=== PATIENT | male | born 1965 | race Caucasian/White ===

== ENCOUNTER → 2017-11-25 15:55 | Outpatient (CLI) | payer BC, SELFPAY ==
[2017-11-25 18:10] LABS: Anion Gap 8 (5-15); BUN 16 mg/dL (7-18); BUN/Creat Ratio 18.5 RATIO (10-20); Calcium,Total 8.6 mg/dL (8.5-10.1); Chloride 103 mmol/L (98-107); Creatinine, Serum 0.86 mg/dL (0.70-1.30); EST Glomerular Filtration Rate 98 mL/min (>60); Est Glom Filt Rate - Afr Amer 118 mL/min (>60); Glucose 103 mg/dL (70-110); Sodium Level 139 mmol/L (136-145)
== END ==
PROVIDERS: Family Provider Internal Medicine; PCP Internal Medicine; Visit Provider Family Medicine
DX: I10 Essential (primary) hypertension (principal)
CPT/HCPCS: 36415; 80048

== ENCOUNTER 2018-02-10 06:26 | Day surgery (SDC) | payer BC, SELFPAY ==
--- NOTE | 2018-02-10 | COLBX_PTH ---
PATIENT: AUGUSTUS LIND LOC: EN U#:[id number] AGE/SX: 53/M ROOM: RE02/10/[address]: Dr. Ryan Alarcon MD : 1965 BED: DIS: 02/10/2018 SPEC #: [id number] RECD: 02/10/18 10:09 STATUS: JENNIFER ALEX #: [id number] ESCOBAR: 02/10/18 00:[address]: Ryan Alarcon DEPT: SURGICAL PATHOLOGY RECD BY: Sim Lamar ENTERED: 02/10/18 10:45 SP TYPE: COLON BX OTHR DR: Dr. Ortega Galloway MD Tissues: Rectum, NOS Procedures: Surgery Specimen Level IV HEADER OPERATION: Colonoscopy PRE-OP DIAGNOSIS: Screening TISSUE SUBMITTED: Rectal polyp MICROSCOPIC DIAGNOSIS Rectal polyp, biopsy: Fragments of tubular adenoma. SJ:yu 02/11/18 MICROSCOPIC DESCRIPTION Slides are reviewed. GROSS DESCRIPTION Received in fixative is one container labeled with the patient's name and designated rectal polyp. The specimen consists of two irregular fragments of light alejandre soft tissue that in aggregate measure 0.6 x 0.3 x 0.2 cm. The specimen is totally submitted in one cassette. / AM:yu 02/10/18 TC:1 CPT: 62136
[2018-02-10 06:50] VITALS: BP 124/81; PULSE 58; RESP 18; TEMP 36.6; O2SAT 98; BMI 21.2
--- NOTE | 2018-02-10 08:08 | PCM.HP.STD ---
Problem List (1) Colon cancer screening Status: Acute History of Present Illness Date of Admission: 02/10/18 The patient is a 53 year old M who presents for screening colonoscopy. Past Medical History Allergies No Known Allergies Allergy (Verified 02/03/18 15:34) Home Medications: Ambulatory Orders Medication Instructions Recorded Aspirin E.C. [Ecotrin] 81 mg PO DAILY@0800 02/03/18 Hydrochlorothiazide [Hctz] 25 mg PO DAILY 02/03/18 Lisinopril [Zestril] 10 mg PO DAILY 02/03/18 Smoking Status: Former smoker - *Family History Maternal History Items: No pertinent history VTE Information - Inpt Only VTE Present on Admission: No VTE Mechan Device Prophylaxis: None VTE Pharm Prophylaxis ordered?: No Reason prophylaxis not ordered:: Treatment Not Indicated Patient Problems: Active and Suspected Problems Colon cancer screening (Acute) - Physical Exam Lungs: Clear to auscultation Cardiovascular: Regular rate, Regular Rhythm, No murmurs Abdomen: Bowel Sounds Present, Soft, Non Tender, Non-Distended Vital Signs Temp Pulse Resp BP Pulse Ox 97.9 F 58 L 18 124/81 H 98 02/10/18 06:50 02/10/18 06:50 02/10/18 06:50 02/10/18 06:50 02/10/18 06:50 Oxygen Delivery Method Room Air Weight: 147 lb 14.883 oz Body Mass Index (BMI) 21.2 Assessment/Plan Active and Suspected Problems Colon cancer screening (Acute) My plan is to perform a colonoscopy on him. Risk benefits are reviewed and he agrees to proceed.
--- NOTE | 2018-02-10 08:09 | PCM.OPRPT ---
Problem List (1) Colon cancer screening Status: Acute Report of Operation Date of Procedure: 02/10/18 Pre-Operative Diagnosis: z12.11 screening colonoscopy Post-Operative Diagnosis: Same Surgery/Procedure Performed:: 62522 colonoscopy with snare polypectomy of polyp in the rectum Type of Anesthesia:: MAC Anesthesiologist: Sacha Schulz Description of Procedure: Patient was brought in the operating room placed in supine position under excellent MAC anesthetic was placed in the left lateral decubitus position the scope was inserted into the rectum. Scope was directed through the sigmoid colon, descending colon, transverse colon, ascending colon, to the cecum. Operative findings: 1. Cecum: Normal appearance no mass lesions normal ileocecal valve. 2. Ascending colon: Normal appearance no mass lesions. 3. Transverse colon: Normal appearance no mass lesions 4. Descending colon: Normal appearance no mass lesions 5. Sigmoid colon: Normal appearance no mass lesion diffuse scattered diverticuli were identified. 6. Rectum: Small polyp was identified with a small stock I placed a snare around this and remove the polyp without difficulty and brought back to the channel the scope. Had excellent hemostasis. The scope was withdrawn. Digital rectal exam was performed showing a smooth prostate. The patient will need another colonoscopy in 3 years. - Admit VTE Documentation VTE Present on Admission: No VTE Mechan Device Prophylaxis: None VTE Pharm Prophylaxis ordered?: No Reason prophylaxis not ordered:: Treatment Not Indicated
[2018-02-10 08:10] VITALS: BP 113/75; BP 124/81; PULSE 62; RESP 16; TEMP 36.3; O2SAT 96
[2018-02-10 08:15] VITALS: BP 112/73; BP 124/81; PULSE 53; RESP 16; O2SAT 95
[2018-02-10 08:20] VITALS: BP 119/74; BP 124/81; PULSE 51; RESP 18; O2SAT 96
[2018-02-10 08:25] VITALS: BP 124/81; BP 126/83; PULSE 53; RESP 18; TEMP 36.4; O2SAT 97
[2018-02-10 08:41] VITALS: BP 124/81
== END 2018-02-10 08:40 | disposition home or self-care (01) ==
LOC: EN 06:26
PROVIDERS: Family Provider Family Medicine; PCP Family Medicine; Visit Provider Surgery
PROC: 0DJD8ZZ Inspection of Lower Intestinal Tract, Via Natural or Artificial Opening Endoscopic (ICD-10-PCS; CPT 45378; principal; 2018-02-10 07:55)
DX: Z12.11 Encounter for screening for malignant neoplasm of colon (principal); D12.8 Benign neoplasm of rectum; I10 Essential (primary) hypertension; Z79.82 Long term (current) use of aspirin; Z79.899 Other long term (current) drug therapy; Z87.891 Personal history of nicotine dependence
CPT/HCPCS: 45380; 88305; J7120; J1610

== ENCOUNTER → 2018-02-17 15:57 | Outpatient (CLI) | payer BC, SELFPAY ==
[2018-02-17 19:08] LABS: Anion Gap 7 (5-15); BUN 25 mg/dL (7-18); BUN/Creat Ratio 23.1 RATIO (10-20); Calcium,Total 8.9 mg/dL (8.5-10.1); Chloride 103 mmol/L (98-107); Creatinine, Serum 1.08 mg/dL (0.70-1.30); EST Glomerular Filtration Rate 75 mL/min (>60); Est Glom Filt Rate - Afr Amer 91 mL/min (>60); Glucose 83 mg/dL (74-106); Potassium 3.6 mmol/L (3.5-5.1); Sodium Level 138 mmol/L (136-145)
== END ==
PROVIDERS: Family Provider Family Medicine; PCP Family Medicine; Visit Provider Family Medicine
DX: I10 Essential (primary) hypertension (principal)
CPT/HCPCS: 36415; 80048

== ENCOUNTER → 2018-04-08 14:34 | Outpatient (CLI) | payer BC, SELFPAY ==
[2018-04-08 15:43] LABS: Absolute Lymphocyte Count 1.45 X10^3/ul (0.83-4.51); Absolute Neutrophil Count 7.8 X10^3/uL (2.0-7.7); Basophil# 0.01 X10^3/uL; Basophil% 0.1 % (0-1); Eosinophil# 0.02 X10^3/uL; Eosinophils% 0.2 % (0-5); Hematocrit 42.1 % (40-54); Hemoglobin 13.7 g/dl (13.0-16.5); Lymphocyte # 1.45 X10^3/ul (4.0); Lymphocyte % 14.5 % (19-41); Mean Corp Hgb Conc 32.5 g/gl (32-36); Mean Corpuscular Hgb 31.1 pg (27.0-32.0); Mean Corpuscular Volume 95.7 fL (80-94); Mean Platelet Vol. 9.5 fl (6.2-12.0); Monocyte# 0.71 X10^3/uL; Monocyte% 7.1 % (0-10); Neutrophil # 7.77 X10^3/uL (2.7-7.7); Neutrophil % 77.8 % (47-70); Platelet Count 266 K/mm3 (150-450); RBC Distribution Width SD 48.8 fl (35.1-43.9)
[2018-04-08 15:52] LABS: POSITIVE COUNT NO; POSITIVE DIFFERENTIAL NO; POSITIVE MORPHOLOGY NO
[2018-04-08 16:00] LABS: ALB/GLOB Ratio 1.1 RATIO (0.9-2.4); AST(SGOT) 22 U/L (15-37); Alanine Aminotransfer ALT/SGPT 39 U/L (16-61); Albumin, Serum 3.5 g/dL (3.2-5.0); Alkaline Phosphatase 74 U/L (45-117); Anion Gap 2 (5-15); BUN 16 mg/dL (7-18); BUN/Creat Ratio 15.5 RATIO (10-20); Calcium,Total 8.6 mg/dL (8.5-10.1); Chloride 103 mmol/L (98-107); Creatinine, Serum 1.03 mg/dL (0.70-1.30); EST Glomerular Filtration Rate 80 mL/min (>60); Est Glom Filt Rate - Afr Amer 96 mL/min (>60); Globulin 3.1 g/dL (2.2-4.2); Glucose 96 mg/dL (74-106); Potassium 3.5 mmol/L (3.5-5.1); Protein, Total 6.6 g/dL (6.4-8.2); Sodium Level 138 mmol/L (136-145)
== END ==
PROVIDERS: Family Provider Family Medicine; PCP Family Medicine; Visit Provider Nurse Practitioner Adult Health
DX: R10.9 Unspecified abdominal pain (principal)
CPT/HCPCS: 36415; 80053; 85025

== ENCOUNTER → 2018-04-24 15:39 | Outpatient (CLI) | payer BC, SELFPAY ==
--- NOTE | 2018-04-24 15:47 | CT_ITS ---
STUDY: CT ABDOMEN AND PELVIS WITH CONTRAST REASON FOR EXAM: Male, 53 years old. Lower abdominal pain for a few weeks. RADIATION DOSAGE (If Supplied By Facility): CTDIvol = ( 18.12 ) mGy, DLP = ( 632.01 ) mGycm TECHNIQUE: Transaxial images were obtained from the dome of the diaphragm to the symphysis pubis with oral contrast. 100mL ml of Isovue 300 contrast was administered. Sagittal and coronal images were reconstructed. Individualized dose optimization techniques were used for this CT. COMPARISON: Axial images CT abdomen and pelvis March 26, 2008. Report for that study not available for review at the time of this dictation. FINDINGS: The visualized lung bases are unremarkable. The visualized portions of the heart are within normal limits. Normal liver. The patent portal vein diameter is 15 mm. The gallbladder is contracted. The diameter of the common bile duct reaches 8.5 mm. There is normal tapering as it passes through the pancreatic head. There is a 1.15 cm accessory spleen interposed between the splenic hilum and tail the pancreas Normal spleen. Normal pancreas. Normal bilateral adrenal glands. Normal right kidney. Normal left kidney. No hydronephrosis. Normal visualized stomach. Normal small intestine. Normal colon. The appendix is visualized and appears normal. There is mild atherosclerotic calcification of the abdominal aorta and proximal iliac arteries, without a demonstrated aneurysm. Normal inferior vena cava. Normal retroperitoneum. Normal urinary bladder. Prostate gland is 5.1 x 3.8 x 3.9 cm (R39 cc). Normal abdominal wall. There are multilevel mild to moderate degenerative changes of the visualized spine, as well as degenerative changes of the bilateral sacroiliac joints. A 1 cm sclerotic density is now seen in the lateral right femoral head at the site of a prior site of cystic change. CT/Abdomen/Pelvis WITH Contrast IMPRESSION: 1. No demonstrated finding clearly appearing as a cause of the patient's complaint. 2. Mildly enlarged prostate gland, slightly increased in size from 2007. 3. No hydronephrosis. 4. The bowel is unremarkable without signs of obstruction. The appendix is normal. Electronically Signed: Michael Norton MD at 19:39 EDT , Service support ,
== END ==
PROVIDERS: Family Provider Family Medicine; PCP Family Medicine; Visit Provider Family Medicine
DX: R19.00 Intra-abdominal and pelvic swelling, mass and lump, unspecified site (principal)
CPT/HCPCS: 74177; Q9967

== ENCOUNTER → 2018-06-05 08:10 | Outpatient (CLI) | payer BC, SELFPAY ==
[2018-06-05 10:29] LABS: Anion Gap 10 (5-15); BUN 11 mg/dL (7-18); BUN/Creat Ratio 12.1 RATIO (10-20); Calcium,Total 8.6 mg/dL (8.5-10.1); Chloride 108 mmol/L (98-107); Cholesterol 172 mg/dL (200); Creatinine, Serum 0.91 mg/dL (0.70-1.30); EST Glomerular Filtration Rate 92 mL/min (>60); Est Glom Filt Rate - Afr Amer 111 mL/min (>60); Glucose 92 mg/dL (74-106); High Density Lipoprotein 86 mg/dL; Sodium Level 145 mmol/L (136-145); Triglycerides 49 mg/dL; Very Low Density Lipoprotein 10 mg/dL (5-40)
== END ==
PROVIDERS: Family Provider Family Medicine; PCP Family Medicine; Visit Provider Family Medicine
DX: I10 Essential (primary) hypertension (principal)
CPT/HCPCS: 36415; 80048; 80061

== ENCOUNTER 2018-06-25 21:55 | Emergency (ER) | payer BC, SELFPAY ==
[2018-06-25 21:55] VITALS: BP 158/102; PULSE 85; RESP 16; TEMP 36.4; O2SAT 97; BMI 22.1
[2018-06-25 22:28] LABS: Absolute Lymphocyte Count 1.31 X10^3/ul (0.83-4.51); Absolute Neutrophil Count 7.3 X10^3/uL (2.0-7.7); Basophil# 0.02 X10^3/uL; Basophil% 0.2 % (0-1); Eosinophil# 0.01 X10^3/uL; Eosinophils% 0.1 % (0-5); Hematocrit 43.3 % (40-54); Hemoglobin 14.5 g/dl (13.0-16.5); Lymphocyte # 1.31 X10^3/ul (4.0); Lymphocyte % 13.9 % (19-41); Mean Corp Hgb Conc 33.5 g/gl (32-36); Mean Corpuscular Hgb 32.4 pg (27.0-32.0); Mean Corpuscular Volume 96.7 fL (80-94); Mean Platelet Vol. 9.5 fl (6.2-12.0); Monocyte% 7.4 % (0-10); Neutrophil # 7.34 X10^3/uL (2.7-7.7); Neutrophil % 78.1 % (47-70); POSITIVE COUNT NO; POSITIVE DIFFERENTIAL NO; POSITIVE MORPHOLOGY NO; Platelet Count 206 K/mm3 (150-450); RBC Distribution Width CV 13.6 % (11.6-14.6); RBC Distribution Width SD 47.5 fl (35.1-43.9); Red Blood Count 4.48 M/mm3 (4.6-6.2); White Blood Count 9.4 K/mm3 (4.4-11.0)
[2018-06-25] MEDS: 0.9% Normal Saline 1,000 ML 150 ML IV (22:47)
[2018-06-25] MEDS: Aspirin 81 MG TAB.CHEW 324 MG PO (22:47)
[2018-06-25 22:49] LABS: Anion Gap 9 (5-15); BUN 18 mg/dL (7-18); BUN/Creat Ratio 18.7 RATIO (10-20); Calcium,Total 8.8 mg/dL (8.5-10.1); Chloride 108 mmol/L (98-107); Creatinine, Serum 0.96 mg/dL (0.70-1.30); EST Glomerular Filtration Rate 86 mL/min (>60); Est Glom Filt Rate - Afr Amer 104 mL/min (>60); Estimated Creatinine Clearance 86.21 ml/min; Glucose 120 mg/dL (74-106); Potassium 3.7 mmol/L (3.5-5.1); Sodium Level 146 mmol/L (136-145); Thyroid Stim Hormone (TSH) 1.15 uIU/mL (0.358-3.74)
--- NOTE | 2018-06-25 23:14 | ED.DCSUM_ITS ---
- ER Visit Summary Date of Service: 06/25/18 Chief Complaint: Palpitations History of Present Illness: The patient is a [address] Ortega Rodriguez. He reports he has palpitations began approximate 6:00 this evening. He describes as an irregular heartbeat with mild shortness of breath. No chest pain, pressure, or tightness. No associated nausea or diaphoresis. Patient reports that his blood pressure has been elevated. His engineer booster and exhauster had him stop his hydrochlorothiazide recently. He has lisinopril increased from 10-20 mg and his blood pressure remains elevated. Physical Examination: Vitals: Stable. Afebrile. General: Well-nourished and well-developed. Head: Normocephalic atraumatic. Neck: Supple, no lymphadenopathy. No JVD. Nontender. Cardiovascular: Regular rate and rhythm. No murmurs. Respiratory: No respiratory distress. Clear to auscultation bilaterally. Abdominal: Soft, nontender, nondistended, normal bowel sounds. No guarding, rebound, or peritoneal signs. Back: Nontender. Extremities: Nontender, no edema. Skin: Normal color, no rash. Neurologic: Alert and oriented ?3. Cranial nerves II through XII are intact. Normal strength and sensation. Psych: Normal affect. Test Results: EKG is sinus at [address] changes. Troponins negative. CBC is remarkable for segment neutrophils 78 lymphocytes 14. Chem-7 is marked for sodium 146, chloride 108, glucose 120. TSH is 1.15. Chest x-ray is normal. Emergency Department Course and Treatment: Patient's blood pressure has remained elevated while here. He would like to be placed back on a diuretic. Reports that his engineer booster and exhauster took him off hydrochlorothiazide due to the photosensitivity associated with this. Had a prolonged discussion with patient and his , who is an RN, about choices. And they have opted for Lasix. He is given 20 mg p.o. here. Treatment Plan: Patient is asking for a referral to Dr. Aguilar. He will be placed on 10 mg of Lasix once a day. Instructed follow-up Dr. Aguilar the next 1- 2 weeks. Follow-up with Dr. Ortega Rodriguez within a week to get his blood pressure checked again. Return to the emergency department for any worsening symptoms. Disposition: To home in improved and stable condition. Impression: 1. Palpitations. 2. Hypertension. This note was generated with [employer]addle dictation software. It may contain incorrect words, spelling, and punctuation that were not noted in review of the chart prior to signing ED Disposition - Plan for ED Patient: Disposition: Home or Assisted Living Chief Complaint: Palpitations Instructions: ED Hypertension Conf Out Of Control, ED Palpitations Prescriptions: Furosemide [Lasix] 10 mg PO DAILY #30 tablet Referrals: Cleveland Aguilar MD [STAFF PHYSICIAN] - Ortega Galloway MD [Primary Care Provider] - 3-5 Days if not improving
[2018-06-25 23:25] VITALS: BP 169/106; PULSE 67; PULSE 72; RESP 14; O2SAT 96; O2SAT 98
[2018-06-25] MEDS: Furosemide 20 MG Tablet PO (23:26)
== END 2018-06-25 23:28 | disposition home or self-care (01) ==
LOC: ED 22:23
PROVIDERS: Emergency Provider Emergency Medicine; Family Provider Family Medicine; PCP Family Medicine
DX: R00.2 Palpitations (principal); I10 Essential (primary) hypertension; R06.00 Dyspnea, unspecified; Z79.82 Long term (current) use of aspirin; Z79.899 Other long term (current) drug therapy
CPT/HCPCS: 71045; 80048; 84443; 84484; 85025; 93005; 96360; 99285; J7030; A4216

== ENCOUNTER → 2018-07-18 15:55 | Outpatient (CLI) | payer BC, SELFPAY ==
--- NOTE | 2018-07-18 16:01 | ECHOD_ITS ---
Reason For Study: HTN Procedure This was a 2D Doppler, Color Flow transthoracic echocardiogram. Exam performed in department. Left Ventricle Normal LV size. Apical false tendon noted. The estimated ejection fraction is 45 %. No evidence for diastolic dysfunction. No regional wall motion abnormalities noted. Right Ventricle Normal RV size. Normal systolic function. Atria Normal left atrium. Normal right atrium. Mitral Valve Normal mitral valve. Trivial eccentric mitral valve insufficiency. Tricuspid Valve Normal tricuspid valve. Mild (1+) tricuspid valve insufficiency. Aortic Valve Normal aortic valve. Trisinus/trileaflet aortic valve. Mild (1+) eccentric aortic valve insufficiency. Pulmonic Valve Normal pulmonic valve. Great Vessels Normal aortic root. The pulmonary artery is normal size. Normal inferior vena cava. Pericardium/Pleural No pericardial effusion. MMode/2D Measurements & Calculations LVIDd: 5.0 cm IVSd: 0.92 cm Ao root diam: 3.8 cm RVDd: 2.7 cm LVPWd: 0.91 cm LA dimension: 2.9 cm LAV(MOD-bp): 48.1 ml EDV(MOD-sp4): 110.8 ml EDV(MOD-sp2): 107.3 ml LAV(MOD-bp) Indexed: 25.7 ml/m2 ESV(MOD-sp4): 47.1 ml EF(MOD-sp2): 55.2 % LAV(MOD-sp2): 62.5 ml EF(MOD-sp4): 57.5 % LAV(MOD-sp4): 35.2 ml SV(MOD-sp4): 63.7 ml SV(MOD-sp2): 59.2 ml LA A4 area: 14.9 cm2 RA A4 area: 13.9 cm2 Time Measurements MV dec time: 0.31 sec Doppler Measurements & Calculations MV E max aleks: 42.7 cm/sec Lat Peak E' Aleks: 9.6 cm/sec Med Peak E' Aleks: 6.5 cm/sec MV A max aleks: 34.8 cm/sec E/E' lat: 4.4 E/E' med: 6.6 MV E/A: 1.2 Ao V2 max: 103.5 cm/sec AI max aleks: 433.6 cm/sec LV V1 max: 93.6 cm/sec Ao max P.3 mmHg AI max P.2 mmHg LV V1 max P.5 mmHg AI dec slope: 193.2 cm/sec2 AI P1/2t: 657.4 msec PA V2 max: 72.6 cm/sec TR max aleks: 222.0 cm/sec TR max P.7 mmHg Interpretation Summary Normal LV size. The estimated ejection fraction is 45 %. No evidence for diastolic dysfunction. No regional wall motion abnormalities noted. Mild (1+) eccentric aortic valve insufficiency. Compared to previous study, the left ventricular systolic function has worsened.. Ordering Physician: Cleveland Aguilar Referring Physician: Cleveland Aguilar Performed By: Monae Vargas, KRISTIE, RVT
== END ==
PROVIDERS: Family Provider Family Medicine; PCP Family Medicine; Visit Provider Internal Medicine Cardiovascular Disease
DX: I10 Essential (primary) hypertension (principal)
CPT/HCPCS: 93306

== ENCOUNTER → 2018-12-10 08:15 | Outpatient (CLI) | payer BC, SELFPAY ==
[2018-12-10 10:37] LABS: Anion Gap 9 (5-15); BUN 17 mg/dL (7-18); BUN/Creat Ratio 17.5 RATIO (10-20); Calcium,Total 9.1 mg/dL (8.5-10.1); Chloride 104 mmol/L (98-107); Cholesterol 195 mg/dL (200); Creatinine, Serum 0.97 mg/dL (0.70-1.30); EST Glomerular Filtration Rate 85 mL/min (>60); Est Glom Filt Rate - Afr Amer 103 mL/min (>60); Glucose 100 mg/dL (74-106); High Density Lipoprotein 91 mg/dL; PSA,Total - Annual Screen 1.29 ng/mL (0.00-4.00); Potassium 3.8 mmol/L (3.5-5.1); Sodium Level 146 mmol/L (136-145); Triglycerides 55 mg/dL; Very Low Density Lipoprotein 11 mg/dL (5-40)
== END ==
PROVIDERS: Family Provider Family Medicine; PCP Family Medicine; Visit Provider Family Medicine
DX: I10 Essential (primary) hypertension (principal); N40.0 Benign prostatic hyperplasia without lower urinary tract symptoms
CPT/HCPCS: 36415; 80048; 80061; 84153; G0103

== ENCOUNTER → 2019-03-26 15:36 | Outpatient (CLI) | payer BC, SELFPAY ==
--- NOTE | 2019-03-26 15:39 | RAD_ITS ---
STUDY: X-RAY - ABDOMEN/PELVIS REASON FOR EXAM: Male, 54 years old. Abdominal pain for one year. TECHNIQUE: 4 COMPARISON: None. FINDINGS: Normal visualized lung bases. There is a nonspecific bowel gas pattern. There is seen within the mildly distended stomach. Throughout nondistended colon and dilated central small bowel loops. There is no demonstrated free abdominal air. The visualized liver, spleen and kidneys are grossly normal in size and morphology. Normal soft tissue structures. Normal visualized osseous structures. RAD/Abd Inc Decub and/or Erect IMPRESSION: Diffuse gaseous distention of bowel suggesting ileus. Electronically Signed: Steven Zaidi DO at 19:04 EDT Tel [phone], Service support ,
== END ==
PROVIDERS: Family Provider Family Medicine; PCP Family Medicine; Referring Provider Family Medicine; Visit Provider Family Medicine
DX: R10.9 Unspecified abdominal pain (principal)
CPT/HCPCS: 74019

== ENCOUNTER → 2019-04-01 15:37 | Outpatient (CLI) | payer BC, SELFPAY ==
[2019-03-27 13:18] VITALS: BMI 23.3
--- NOTE | 2019-04-01 15:38 | CT_ITS ---
HISTORY: RECENT ILEUS , BLOATING AND PAIN TECHNIQUE: Helically acquired images were obtained of the abdomen and pelvis following the intravenous administration of 100 ml of Isovue 300 Iodinated contrast. 2D reformats. Oral contrast was administered. A radiation dose optimization technique was used for this scan. COMPARISON: X-rays of the abdomen from March 26, 2019, and CT scan of the abdomen and pelvis from April 24, 2018. FINDINGS: # of images incl. paperwork: 381 LUNG BASES: Clear. CT abdomen: Bones are unremarkable. The gallbladder is contracted. Liver, spleen, pancreas, and adrenal glands, are normal. A tiny nonobstructing nephrolith is present within the inferior pole of the left kidney. A 7 mm hypodense area medially within the midportion of the left kidney is statistically a benign simple cysts.. The aorta is soft and calcific plaque are present within the abdominal aorta without aneurysm or dissection.. CT pelvis: No ascites is present. The the prostate gland is enlarged indenting into the posterior inferior aspect of the urinary bladder.. The appendix is normal. Series 1002, image 61. The bladder is normal. Bowel-gas pattern is normal. CT/Abdomen/Pelvis WITH Contrast IMPRESSION: No acute intra-abdominal or pelvic disease. Individualized dose optimization techniques were used for this CT. at 0258 Reported and signed by: Prudencio Vicente MD Electronically Signed: Prudencio Vicente MD at 2:57 EDT Tel , Service support ,
== END ==
PROVIDERS: Family Provider Family Medicine; PCP Family Medicine; Referring Provider Surgery; Visit Provider Surgery
DX: R10.9 Unspecified abdominal pain (principal); R14.0 Abdominal distension (gaseous)
CPT/HCPCS: 74177; Q9967

== ENCOUNTER → 2019-04-10 07:57 | Outpatient (CLI) | payer BC, SELFPAY ==
[2019-03-27 13:18] VITALS: BMI 23.3
--- NOTE | 2019-04-10 08:00 | US_ITS ---
STUDY: ABDOMINAL ULTRASOUND - RIGHT UPPER QUADRANT REASON FOR VISIT: Male, 54 years old. Elevated LFTs TECHNIQUE: Ultrasound evaluation of the right upper quadrant was performed with real-time and static de luna-scale imaging. TECHNICAL QUALITY: Adequate. COMPARISON: None. FINDINGS: Liver: The liver measures 16.6 cm. There is normal echogenicity of the liver. The bile ducts are within normal limits. There is hepatic color flow. The direction of portal flow is hepatopetal. There is no demonstrated mass lesion. Gallbladder: Normal distended gallbladder. The gallbladder wall measures 1.6 mm. There is a negative sonographic Juan's sign. There is no pericholecystic fluid. There are no gallstones. Common Bile Duct (C.B.D.): The common bile duct measures 7.4 mm. Pancreas: Normal size of the head, body and tail of the pancreas. There is normal echogenicity of the pancreas. There is no demonstrated pancreatic mass or cyst. Right Kidney: Normal size of the right kidney. The right kidney measures 9.9 x 4.9 x 6.0 cm. Normal renal cortex. The right cortex measures 1.6 cm. There is no demonstrated renal mass or cyst. There is no right hydronephrosis. US/Gallbladder IMPRESSION: Normal right upper quadrant ultrasound examination. Electronically Signed: Michael Perez MD at 15:49 EDT , Service support ,
== END ==
PROVIDERS: Family Provider Family Medicine; PCP Family Medicine; Referring Provider Surgery; Visit Provider Surgery
DX: R10.11 Right upper quadrant pain (principal); R14.0 Abdominal distension (gaseous)
CPT/HCPCS: 76705

== ENCOUNTER → 2019-08-05 07:57 | Outpatient (CLI) | payer BC, SELFPAY ==
[2019-04-14 15:22] VITALS: BMI 23.3
--- NOTE | 2019-08-05 07:59 | ECHOD_ITS ---
Reason For Study: hypertension Procedure This was a 2D Doppler, Color Flow transthoracic echocardiogram. The exam was of adequate technical quality. Exam performed in department. Left Ventricle Normal LV size. Apical false tendon noted. Left ventricular systolic function is normal. The estimated ejection fraction is 65 %. Transmitral doppler flow suggestive of impaired relaxation of left ventricle. No regional wall motion abnormalities noted. Right Ventricle Normal RV size. Normal systolic function. Atria Normal left atrium. Normal right atrium. No doppler evidence for ASD. Mitral Valve There is no mitral annular calcification. Normal mitral valve. Trivial mitral valve insufficiency. Tricuspid Valve Normal tricuspid valve. Trivial tricuspid valve insufficiency. Aortic Valve Trisinus/trileaflet aortic valve. Normal aortic valve. Trivial aortic valve insufficiency. Pulmonic Valve The pulmonic valve is not well visualized. Trivial pulmonic valve insufficiency. Great Vessels Mildly dilated aortic root. Pericardium/Pleural No pericardial effusion. MMode/2D Measurements & Calculations LVIDd: 5.4 cm IVSd: 0.92 cm LVOT diam: 2.5 cm LVIDs: 3.7 cm LVPWd: 0.90 cm LVOT area: 5.0 cm2 RVDd: 3.3 cm FS: 32.3 % Ao root diam: 4.2 cm LAV(MOD-bp): 47.5 ml LA A4 area: 18.2 cm2 LAV(MOD-bp) Indexed: 25.3 ml/m2 LAV(MOD-sp2): 43.4 ml LAV(MOD-sp4): 51.8 ml LA dimension(2D): 3.5 cm RA A4 area: 16.8 cm2 Time Measurements MV dec time: 0.18 sec Doppler Measurements & Calculations MV E max aleks: 59.6 cm/sec Lat Peak E' Aleks: 8.4 cm/sec Med Peak E' Aleks: 5.7 cm/sec MV A max aleks: 75.8 cm/sec E/E' lat: 7.1 E/E' med: 10.4 MV E/A: 0.79 Ao V2 max: 106.2 cm/sec AI max aleks: 444.3 cm/sec LV V1 max: 103.3 cm/sec Ao max P.5 mmHg AI max P.0 mmHg LV V1 max P.3 mmHg Ao V2 mean: 68.6 cm/sec AI dec slope: 185.7 cm/sec2 LV V1 mean P.8 mmHg Ao mean P.1 mmHg AI P1/2t: 700.8 msec LV V1 mean: 61.5 cm/sec Ao V2 VTI: 21.0 cm LV V1 VTI: 22.1 cm VLADIMIR(I,D): 5.3 cm2 VLADIMIR(V,D): 4.9 cm2 SV(LVOT): 110.5 ml PA V2 max: 84.1 cm/sec Interpretation Summary Left ventricular systolic function is normal. The estimated ejection fraction is 65 %. Apical false tendon noted. Trivial mitral valve insufficiency. Trivial tricuspid valve insufficiency. Trivial aortic valve insufficiency. Trivial pulmonic valve insufficiency. Mildly dilated aortic root. Transmitral doppler flow suggestive of impaired relaxation of left ventricle Ordering Physician: Aleida Marcelo Referring Physician: Aleida Marcelo Performed By: Ivanna Martin, KRISTIE, RVT
== END ==
PROVIDERS: Family Provider Internal Medicine; PCP Internal Medicine; Referring Provider Internal Medicine; Visit Provider Internal Medicine
DX: I11.9 Hypertensive heart disease without heart failure (principal); I43 Cardiomyopathy in diseases classified elsewhere
CPT/HCPCS: 93306

== ENCOUNTER 2020-04-11 15:23 | Emergency (ER) | payer BC, SELFPAY ==
[2019-04-14 15:22] VITALS: BMI 23.3
[2020-04-11 15:23] VITALS: BP 147/95; PULSE 78; RESP 18; O2SAT 98
[2020-04-11 15:24] VITALS: BP 145/98; PULSE 81; RESP 17; TEMP 36.4; O2SAT 97; BMI 23.2
--- NOTE | 2020-04-11 15:57 | RAD_ITS ---
STUDY: X-RAY - LEFT FOOT CLINICAL: Male, 55 years old. BRUISING TO OUTSIDE OF FOOT, PAIN ON BOTTOM X5 DAYS. NO KNOWN INJURY. TECHNIQUE: 3 view(s) of the foot. COMPARISON: None. FINDINGS: Normal talus, calcaneus, and tarsal bones. Normal visualized subtalar, talonavicular, calcaneocuboid, tarsal and tarsometatarsal articulations. Normal metatarsi. Normal metatarsophalangeal joint of the great toe. Normal tibial and fibular sesamoid bones. Normal interphalangeal joint of the great toe. Normal phalanges of the great toe. Normal second through fifth metatarsophalangeal joints. Normal interphalangeal joints and phalanges of the lesser toes. There is mild soft tissue edema. There is mild fragmentation of the sesamoids of the big toe. There are no acute fractures. RAD/Foot min 3 Views IMPRESSION: Mild soft tissue edema Mild fragmentation of the sesamoids of the big toe likely normal variant or old trauma, correlation with point tenderness recommended No acute fracture Electronically Signed: Lee De Los Santos, at 17:01 EDT Tel , Service support ,
--- NOTE | 2020-04-11 15:59 | CT_ITS ---
STUDY: CTA OF THE ABDOMINAL AORTA AND BILATERAL LOWER EXTREMITIES REASON FOR EXAM: Male, 55 years old. ABD SWELLING, LEG DISCOLORATION-LT LEG BRUISING, LEG COLD, HX-HTN RADIATION DOSAGE (If Supplied By Facility): CTDIvol = ( 7.88 ) mGy, DLP = ( 1038.64 ) mGycm TECHNIQUE: Axial CT angiography multi-detector data acquisition was obtained from the to the following intravenous administration of IV 100mL Isovue-370. Axial images and MIP images were reconstructed from the axial data set. Post-processing of the angiographic images was performed, with multiplanar reformation and 3D reconstruction. Individualized dose optimization techniques were used for this CT. TECHNICAL QUALITY: Good COMPARISON: None. Descriptors of Narrowing: None (0%) Mild (< 50%) Moderate (50-70%) Severe (70-90%) Subtotal/Total Occlusion (90-100%) Non-Evaluable (technically non-diagnostic FINDINGS: Abdominal aorta: No demonstrated narrowing. Celiac and superior mesenteric arteries: No demonstrated narrowing. Inferior mesenteric artery: No demonstrated narrowing. Right renal artery(arteries): No demonstrated narrowing. Left renal artery(arteries): No demonstrated narrowing. Right common iliac artery: No demonstrated narrowing. Right external iliac artery: No demonstrated narrowing. Right internal iliac artery: No demonstrated narrowing. Left common iliac artery: No demonstrated narrowing. Left external iliac artery: No demonstrated narrowing. Left internal iliac artery: No demonstrated narrowing. RIGHT LOWER EXTREMITY Right common femoral artery: No demonstrated narrowing. Right profundus femoris: No demonstrated narrowing. Right superficial femoral: No demonstrated narrowing. Right popliteal artery: No demonstrated narrowing. Right tibioperoneal trunk: No demonstrated narrowing. Right anterior tibial artery: Normal proximal to mid calf, no flow within the distal calf, ankle or foot. Right posterior tibial artery: Normal proximal to mid calf, no flow within the distal calf, ankle Right peroneal artery: Normal proximal to mid calf, no flow within the distal calf, ankle LEFT LOWER EXTREMITY Left common femoral artery: No demonstrated narrowing. Left profundus femoris: No demonstrated narrowing. Left superficial femoral: No demonstrated narrowing. Left popliteal artery: No demonstrated narrowing. Left tibioperoneal trunk: No demonstrated narrowing. Left anterior tibial artery: Normal proximal to mid calf, no flow within the distal calf, ankle or foot. Left posterior tibial artery: Normal proximal to mid calf, no flow within the distal calf, ankle Left peroneal artery: Normal proximal to mid calf, no flow within the distal calf, ankle Evaluation of the abdominal organs is limited due to timing of the contrast bolus. There are no focal lesions liver spleen, pancreas kidneys or adrenal glands. There is mild bladder distention. CT/CTA Abd w/Runoff W/WO Contrast IMPRESSION: Normal flow within the bilateral proximal and mid trifurcation arterial vessels with no flow within the bilateral anterior tibial, posterior tibial, peroneal arteries within the lower calf ankle, no arterial flow is also visualized within the bilateral feet findings which may be due to timing of the contrast and/or occlusion. This should be correlated with Doppler ultrasound, physical exam and can be correlated with angiography. Electronically Signed: Lee De Los Santos, at 17:30 EDT Tel , Service support ,
--- NOTE | 2020-04-11 16:13 | ED.DCSUM_ITS ---
History of Present Illness Chief Complaint: Lower Extremity Injury Informant: Patient Onset: Days Context: Gradual Onset Timing: Waxes and wanes Current Severity: Mild Maximum Severity: Moderate Narrative: Patient presents with significant other secondary to bruising on legs, color and temperature change. He states last week he noted pain to the bottom of his left foot. He does not remember an injury. 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 Over the weekend he noted some bruising to the lateral portion of his foot. This is not painful. states intermittently over the last several days he has had times where his leg is pale and cold while the other is conrad in color. She also states the patient is had increasing abdominal girth. She states they called primary care physician and because of his multitude of complaints was sent to the emergency room for work-up. - Past Medical History (1) Hypertension Status: Chronic Past Medical History - Allergies and Home Meds Allergies/Adverse Reactions: Allergies No Known Allergies Allergy (Verified 04/11/20 15:23) Primary Care Physician: Aleida Marcelo DO [Primary Care Provider] - Prior records reviewed: Yes Lives: Spouse/ Significant Other Smoking Status: Never smoker - Family History Maternal Family History: Family History (Last Reviewed 04/14/19 @ 15:21 by Ivanna Harkins) Mother Hypertension Diabetes Father Arthritis Sister Diabetes Family History: Reports: No pertinent history Review of Systems General: Denies: Chills, Fever Eyes: Denies: Visual changes - bilaterally ENT: Denies: Bilateral ear pain Cardiovascular: Denies: Chest pain Respiratory: Denies: Dyspnea, Cough Gastrointestinal: Reports: Abdominal pain - Chronic lower abdominal pain x years. Denies: Nausea, Vomiting, Diarrhea Genitourinary: Denies: Dysuria Musculoskeletal: Reports: Extremity Pain Skin: Reports: - - Bruises Neurological: Denies: Headache, Weakness, Parasthesia Hematologic: Denies: Easy bruising, Easy bleeding Allergy: Denies: Uticaria Physical Exam Vital Signs/Narrative: Vital Signs Temp Pulse Resp BP Pulse Ox 04/11/20 15:24 97.5 F L 81 17 145/98 H 97 04/11/20 15:23 78 18 147/95 H 98 Inital Vital Signs reviewed: Yes General: Well nourished, Well developed Head: Normocephalic ENT: Moist mucous membranes Neck: Supple Cardiovascular: Regular rate, Regular rhythm Respiratory: No distress, CTA bilaterally Abdomen: Soft, Tender - Suprapubic tenderness.. Negative for: Guarding, Rebound tenderness Extremities: Nontender, - - Old appearing ecchymosis along the lateral portion of the left foot. No tenderness. Strong distal pulses. Legs are warm and equal in color and temperature. Neurological: Alert, Oriented x3, Normal Strength, Normal Sensation Psychological: Normal affect Diagnostic/Tx/Re-eval Impressions Foot X-Ray 04/11/20 15:57 IMPRESSION: Mild soft tissue edema Mild fragmentation of the sesamoids of the big toe likely normal variant or old trauma, correlation with point tenderness recommended No acute fracture Electronically Signed: Lee Filiberto, at 17:01 EDT Tel , Service support , Abdomen/Pelvis CTA 04/11/20 15:59 IMPRESSION: Normal flow within the bilateral proximal and mid trifurcation arterial vessels with no flow within the bilateral anterior tibial, posterior tibial, peroneal arteries within the lower calf ankle, no arterial flow is also visualized within the bilateral feet findings which may be due to timing of the contrast and/or occlusion. This should be correlated with Doppler ultrasound, physical exam and can be correlated with angiography. Electronically Signed: Lee Filiberto, at 17:30 EDT Tel , Service support , 04/11/20 15:57 Xray Foot [Foot min 3 Views] [RAD] Stat 04/11/20 15:59 CTA Abd w/Runoff W/WO Contrast [CT] Stat Laboratory Results 04/11/20 04/11/20 04/11/20 16:05 16:05 16:05 WBC 8.8 RBC 4.48 L Hgb 14.2 Hct 43.8 MCV 97.8 H MCH 31.7 MCHC 32.4 RDW Std Deviation 50.6 H RDW Coeff of Real 14.0 Plt Count 235 MPV 9.2 Immature Gran % (Auto) 1.100 H Neut % (Auto) 73.9 H Lymph % (Auto) 14.4 L [place] % (Auto) 9.5 Eos % (Auto) 0.6 Baso % (Auto) 0.5 Absolute Neuts (auto) 6.5 Absolute Lymphs (auto) 1.27 Nucleated RBC % 0 PT 12.1 INR 1.0 APTT 24.0 L Sodium 143 Potassium 3.2 L Chloride 105 Carbon Dioxide 32.0 Anion Gap 6 BUN 28 H Creatinine 1.06 Estim Creat Clear Calc 79.39 Est GFR (MDRD) Af Amer 93 Est GFR (MDRD) Non-Af 77 BUN/Creatinine Ratio 26.4 H Glucose 96 Calcium 8.6 Urine Color Urine Clarity Urine pH Ur Specific [place] Urine Protein Urine Glucose (UA) Urine Ketones Urine Occult Blood Urine Nitrite Urine Bilirubin Urine Urobilinogen Ur Leukocyte Esterase Urine RBC Urine WBC Ur Squamous Epith Cells Urine Bacteria Urine Mucus 04/11/20 17:35 WBC RBC Hgb Hct MCV MCH MCHC RDW Std Deviation RDW Coeff of Real Plt Count MPV Immature Gran % (Auto) Neut % (Auto) Lymph % (Auto) [place] % (Auto) Eos % (Auto) Baso % (Auto) Absolute Neuts (auto) Absolute Lymphs (auto) Nucleated RBC % PT INR APTT Sodium Potassium Chloride Carbon Dioxide Anion Gap BUN Creatinine Estim Creat Clear Calc Est GFR (MDRD) Af Amer Est GFR (MDRD) Non-Af BUN/Creatinine Ratio Glucose Calcium Urine Color Yellow Urine Clarity Sl. Cloudy Urine pH 7.0 Ur Specific [place] 1.005 Urine Protein Negative Urine Glucose (UA) Normal Urine Ketones Negative Urine Occult Blood Negative Urine Nitrite Negative Urine Bilirubin Negative Urine Urobilinogen Normal Ur Leukocyte Esterase Negative Urine RBC 0 SEEN Urine WBC 0 SEEN Ur Squamous Epith Cells 0-5 SEEN Urine Bacteria 0 SEEN Urine Mucus 0 SEEN - Medical Decision Making Test results discussed with patient and at bedside. This time I have no acute cause for his reported symptoms. Although they do not see good contrast below the knees bilaterally, patient does have warm legs with strong pulses. I do believe this is simply secondary to timing of contrast bolus. I will speak with PCP to help arrange close follow-up. ED Disposition - Plan for ED Patient: Disposition: Home or Assisted Living Diagnosis: Ecchymoses, spontaneous Instructions: ED EXTREMITY CONTUSION Lower Referrals: Aleida Marcelo DO [Primary Care Provider] - 3-5 Days
[2020-04-11 16:18] LABS: Absolute Lymphocyte Count 1.27 X10^3/uL (0.83-4.51); Absolute Neutrophil Count 6.5 X10^3/uL (2.0-7.7); Basophil# 0.04 X10^3/uL; Basophil% 0.5 % (0-1); Eosinophil# 0.05 X10^3/uL; Eosinophils% 0.6 % (0-5); Hematocrit 43.8 % (40-54); Hemoglobin 14.2 g/dL (13.0-16.5); Lymphocyte # 1.27 X10^3/ul (4.0); Lymphocyte % 14.4 % (19-41); Mean Corp Hgb Conc 32.4 g/dL (32-36); Mean Corpuscular Hgb 31.7 pg (27.0-32.0); Mean Corpuscular Volume 97.8 fL (80-94); Mean Platelet Vol. 9.2 fl (6.2-12.0); Monocyte# 0.84 X10^3/uL; Monocyte% 9.5 % (0-10); NRBC Flagged by Analyzer 0 % (0-5); Neutrophil # 6.52 X10^3/uL (2.7-7.7); Neutrophil % 73.9 % (47-70); Platelet Count 235 K/mm3 (150-450); RBC Distribution Width SD 50.6 fl (35.1-43.9); Red Blood Count 4.48 M/mm3 (4.6-6.2); White Blood Count 8.8 K/mm3 (4.4-11.0)
[2020-04-11 16:29] LABS: Prothrombin Time (Protime)PT. 12.1 SECONDS (11.7-14.9)
[2020-04-11 16:34] LABS: Anion Gap 6 (5-15); BUN 28 mg/dL (7-18); BUN/Creat Ratio 26.4 RATIO (10-20); Calcium,Total 8.6 mg/dL (8.5-10.1); Chloride 105 mmol/L (98-107); Creatinine, Serum 1.06 mg/dL (0.70-1.30); EST Glomerular Filtration Rate 77 mL/min (>60); Est Glom Filt Rate - Afr Amer 93 mL/min (>60); Estimated Creatinine Clearance 79.39 ml/min; Glucose 96 mg/dL (74-106); Potassium 3.2 mmol/L (3.5-5.1); Sodium Level 143 mmol/L (136-145)
[2020-04-11 17:23] VITALS: BP 139/92; PULSE 65; RESP 16; TEMP 36.9; O2SAT 96
[2020-04-11 17:57] LABS: Bacteria 0 SEEN /hpf (None Seen); Mucous, Urine 0 SEEN /hpf (<or=2+); Red Blood Cells-Urine 0 SEEN /hpf (0-5); White Blood Cells 0 SEEN /hpf (0-5)
[2020-04-11 18:34] LABS: Color, Urine Yellow (Yellow); Glucose, Dipstick Normal (Normal); Ketone-Dipstick Negative (Negative); Leukocyte Esterase-Dipstick Negative /ul (Negative); Nitrite-Dipstick Negative (Negative); Occult Blood-Urine Negative /ul (Negative); Protein-Dipstick Negative (Negative); Specific Gravity, Urine 1.005 (1.002-1.030); Urine Bilirubin Dipstick Negative (Negative); Urine Clarity Sl. Cloudy (Clear); Urine Urobilinogen Normal (Normal)
[2020-04-11 19:06] LABS: Squamous Epithelial Cells - UA 0-5 SEEN /hpf (0-5)
[2020-04-11 19:30] VITALS: BP 133/95; PULSE 69; RESP 16; O2SAT 97
--- NOTE | 2020-04-11 19:30 | ED.RN ---
IV DC'ED, CATHETER INTACT, SMALL GAUZE DRESSING PLACED. DISCHARGE INSTRUCTIONS GIVEN TO AND REVIEWED WITH PATIENT, PATIENT DENIES QUESTIONS OR CONCERNS AND VOICES UNDERSTANDING OF DISCHARGE INSTRUCTIONS. PT AMBULATES OUT OF ROOM WITHOUT DIFFICULTY.
== END 2020-04-11 19:31 | disposition home or self-care (01) ==
PROVIDERS: Emergency Provider Emergency Medicine; PCP Internal Medicine
DX: R23.3 Spontaneous ecchymoses (principal); I10 Essential (primary) hypertension; Z79.899 Other long term (current) drug therapy
CPT/HCPCS: 73630; 75635; 80048; 81001; 85025; 85610; 85730; 99283; Q9967; A4216

== ENCOUNTER → 2020-08-04 15:02 | Outpatient (CLI) | payer BC, SELFPAY ==
[2020-06-22 15:25] VITALS: BMI 22.9
--- NOTE | 2020-08-04 15:03 | ECHOD_ITS ---
Reason For Study: HYPERTENSION Procedure This was a 2D Doppler, Color Flow transthoracic echocardiogram. Exam performed in department. Left Ventricle Normal left ventricle. Left ventricular systolic function is normal. The estimated ejection fraction is 60 %. Stage 1 diastolic dysfunction. No regional wall motion abnormalities noted. Right Ventricle Normal RV size. Normal systolic function. Atria Normal left atrium. Normal right atrium. Mitral Valve Normal mitral valve. Tricuspid Valve Normal tricuspid valve. Aortic Valve Normal aortic valve. Trisinus/trileaflet aortic valve. Pulmonic Valve Normal pulmonic valve. Trivial pulmonic valve insufficiency identified. Great Vessels Mildly dilated aortic root. The pulmonary artery is normal size. Normal inferior vena cava. Pericardium/Pleural No pericardial effusion. MMode/2D Measurements & Calculations LVIDd: 5.0 cm IVSd: 1.1 cm Ao root diam: 4.0 cm LVIDs: 3.7 cm LVPWd: 1.1 cm RVDd: 3.5 cm FS: 25.6 % LAV(MOD-bp): 58.1 ml LVAd ap4: 32.8 cm2 SV(MOD-sp4): 62.4 ml LAV(MOD-bp) Indexed: 30.6 ml/m2 EDV(MOD-sp4): 110.6 ml LAV(MOD-sp2): 57.0 ml EDV(sp4-el): 116.1 ml LAV(MOD-sp4): 52.2 ml LVAs ap4: 19.8 cm2 ESV(MOD-sp4): 48.2 ml ESV(sp4-el): 47.4 ml EF(MOD-sp4): 56.5 % EF(sp4-el): 59.2 % SV(sp4-el): 68.7 ml LA A4 area: 18.5 cm2 LA dimension(2D): 3.1 cm RA A4 area: 12.8 cm2 Time Measurements MV dec time: 0.18 sec Doppler Measurements & Calculations MV E max aleks: 64.6 cm/sec Lat Peak E' Aleks: 10.1 cm/sec Med Peak E' Aleks: 7.8 cm/sec MV A max aleks: 63.9 cm/sec E/E' lat: 6.4 E/E' med: 8.3 MV E/A: 1.0 Ao V2 max: 98.4 cm/sec AI max aleks: 454.8 cm/sec LV V1 max: 99.0 cm/sec Ao max P.9 mmHg AI max P.7 mmHg LV V1 max P.9 mmHg AI dec slope: 225.1 cm/sec2 AI P1/2t: 591.7 msec PA V2 max: 81.6 cm/sec PI end-d aleks: 80.3 cm/sec TR max aleks: 214.6 cm/sec TR max P.4 mmHg Interpretation Summary Normal left ventricle. Left ventricular systolic function is normal. The estimated ejection fraction is 60 %. Stage 1 diastolic dysfunction. Mildly dilated aortic root. Ordering Physician: Elmer Hernández/Cleveland Aguilar Referring Physician: LEEANNE NIEVES Performed By: Sofia Lawton RDCS
== END ==
PROVIDERS: PCP Internal Medicine; Referring Provider Nurse Practitioner Family; Visit Provider Nurse Practitioner Family
DX: I10 Essential (primary) hypertension (principal); R00.2 Palpitations
CPT/HCPCS: 93306

== ENCOUNTER → 2020-09-19 15:30 | Outpatient (CLI) | payer BC, SELFPAY ==
[2020-06-22 15:25] VITALS: BMI 22.9
[2020-09-19 16:48] LABS: Potassium 3.6 mmol/L (3.5-5.1)
== END ==
PROVIDERS: PCP Internal Medicine; Referring Provider Internal Medicine; Visit Provider Internal Medicine
DX: E87.5 Hyperkalemia (principal)
CPT/HCPCS: 36415; 84132

== ENCOUNTER → 2021-05-27 08:03 | Outpatient (CLI) | payer BC, SELFPAY ==
[2021-04-25 15:31] VITALS: BMI 22.9
[2021-05-27 09:08] LABS: Anion Gap 5 (5-15); BUN 14 mg/dL (7-18); BUN/Creat Ratio 16.5 RATIO (10-20); Calcium,Total 8.6 mg/dL (8.5-10.1); Chloride 104 mmol/L (98-107); Creatinine, Serum 0.85 mg/dL (0.70-1.30); EST Glomerular Filtration Rate 98 mL/min (>60); Est Glom Filt Rate - Afr Amer 119 mL/min (>60); Glucose 113 mg/dL (74-106); Potassium 3.5 mmol/L (3.5-5.1); Sodium Level 142 mmol/L (136-145)
== END ==
PROVIDERS: PCP Internal Medicine; Referring Provider Internal Medicine Cardiovascular Disease; Visit Provider Internal Medicine Cardiovascular Disease
DX: I10 Essential (primary) hypertension (principal)
CPT/HCPCS: 36415; 80048

== ENCOUNTER 2021-06-12 15:00 | Outpatient (RCR) | payer BC, SELFPAY ==
[2021-05-27 09:14] VITALS: BMI 22.3
--- NOTE | 2021-06-12 17:09 | HP.PTEVAL_ITS ---
Patient's Visit Information AUGUSTUS LIND is a 56 year old M referred to Physical Therapy by Dr. Aleida Marcelo DO with a diagnosis of SCIATICA RIGHT LBP. Date of Evaluation: 06/12/21 Physical Therapist: Ezra Laguna, PT, Cert MDT, OCS - Visit Plan Frequency: 2x /Week Duration: 4 Weeks Plan: PT INTERVETIONS DLS ABD/BACK,POSTURAL EX'S,MODLATIES ,AND LE STRENGTHNEING ESPECIALLY RIGHT - Subjective This 56 y/o male presents to physical therapy with sciatica left with LBP. Patient had insidious onset of pain right lower extremity 2 weeks. Patient symptoms worsen seen [facility] clinic prednisone and pain MEDS. Then wasn't getting better seen DR prescribed prednisone muscle relaxer, gabapentin. Patient needs PT before possible MRI if pain doesn't get better. Patient has h/o lumbar pain many years which over time has intermittent. Patient pain has progressively worse also noticed weakness in right leg. Aggravating factors walking, standing, bending, lifting and initial sitting. Alleviating factors rest and sitting.. Coughing/sneezing -. Bowel/bladder -. Denies paresthesia/tingling .Patient is able to sleep. No abnormal night pain. Patient has had PT in past. Patient lumbar pain affects housework tasks and ADL'S .Location of pain lateral hip to knee. Patient lumbar radiculopathy affects QOL. SOCIAL: . Vocation: [place] - Pain Right Pain Intensity (Out of 10): 2 Pain Intensity Range: 10 Right Lower Extremity Pain Intensity (Out of 10): 4 Pain Intensity Range: 10 - Objective POSTURE: mild forward posture. GAIT: reciprocal pattern mild posture decrease stance time RLE. NEURO: denies paresthesia/tingling ,myotome weakness L2-3. SYMMTRIES: align. MMT: quads/hams 4-/5,right hip flexion 3-/5,ankle 4/5,quads/ham 4/5,hip flexion 4-/5,ankle. LUMBAR ROM: flexion WFL ,extension mod loss pain, side glides mod loss pain right side ,min loss left. FLEXABLITY: hamstrings WFL - Special Tests L/S Slump test left side: Negative L/S Slump test right side: Negative L/S Left Straight Leg Raise: Negative L/S Right Straight Leg Raise: Negative Lumbar Standing: Flexion - Mechanical Response: No effect Lumbar Standing: Flexion - Symptoms After Testing: No effect Lumbar Standing: Extension - Mechanical Response: No effect Lumbar Standing: Extension - Symptoms During Testing: Abolishes Lumbar Standing: Extension - Symptoms After Testing: No worse Lumbar Standing: Right Side Glides - Mechanical Response: No effect Lumbar Standing: Right Side [place] - Symptoms During Testing: Increases Lumbar Standing: Right Side [place] - Symptoms After Testing: Worse Comments:: RIGHT LATERAL HIP Lumbar Standing: Left Side [place] - Mechanical Response: No effect Lumbar Standing: Left Side [place] - Symptoms During Testing: No effect Lumbar Standing: Left Side [place] - Symptoms After Testing: No effect Lumbar Lying: Flexion - Mechanical Response: No effect Lumbar Lying: Flexion - Symptoms During Testing: Increases Lumbar Lying: Flexion - Symptoms After Testing: No worse Lumbar Lying: Extension - Mechanical Response: No effect Lumbar Lying: Extension - Symptoms During Testing: Increases Lumbar Lying: Extension - Symptoms After Testing: Worse Comments:: LBP - Balance/Special Test Scores Oswestry Low Back Score: 29 - Goals Goal 1:: Patient to be I with HEP Goal Time Frame: 4-6 Weeks Goal 2:: Patient improve posture/body mechanics Goal Time Frame: 4-6 Weeks Goal 3:: Patient to decrease right lower leg symptoms by 50% or > to improve function Goal Time Frame: 4-6 Weeks Goal 4:: Patient increase strength hip flexion right 3+/5 to improve gait Goal Time Frame: 4-6 Weeks Goal 5:: Patient to increase back owestry score by 5 points or> to improve function/QOL Goal Time Frame: 4-6 Weeks - Rehabilitation Potential Physical Therapy Diagnosis: This patient has right lateral hip pain with myotome weakness affects gait ,standing and job demands ,difficulty with steps ,currently better with sitting,no position or movement decrease symtoms thus benefit from skilled PT Rehabilitation Potential: Fair - Anticipated Interventions Patient/Client Instruction: Educate patient on: Condition, Plan of Care For the Purpose of:: To decrease pain, To increase ROM, To improve muscle performance and motor function, To improve ability to perform ADL's, To increase tolerance to activity/condition/position, To improve performance and independence with ADL's, To improve ability of physical actions for home/community/work/leisure, To improve health of tissue, To decrease soft tissue restriction, To increase flexibility/ROM, To improve balance, To assume or resume ADL's, To reduce risk of recurrence, To improve health and function, To improve ability to perform tasks related to life management Therapeutic Exercise to Include: Strength training, Body mechanics, Postural training, Flexibilty training, Active ROM For the Purpose of:: To decrease pain, To increase ROM, To improve muscle performance and motor function, To improve ability to perform ADL's, To increase tolerance to activity/condition/position, To improve performance and independence with ADL's, To improve ability of physical actions for home/community/work/leisure, To improve health of tissue, To decrease soft tissue restriction, To increase flexibility/ROM, To assume or resume ADL's, To reduce risk of recurrence, To improve ability to perform tasks related to life management TENS: Yes IF ES: Yes Cryotherapy (ice pack, ice massage): Yes Thermo therapy (hot pack): Yes Ultrasound (thermal/non thermal): Yes For the Purpose of:: To decrease pain, To improve nutrient delivery to tissue, To increase oxygenation perfusion, To improve health of tissue, To decrease soft tissue restriction Thank you for the opportunity to evaluate your patient. For Medicare and Medicare HMO plans, please review the plan of care and approve it. It will need to be FAXED BACK to us at [phone] for Medicare purposes. For Medicare only, by signing this I certify the plan of care. Please let me know if there are questions or concerns regarding this plan of ca re. Physician Signature: Date:
--- NOTE | 2021-11-13 10:54 | HP.PT.NRP ---
AUGUSTUS LIND was seen in my office for initial evaluation on 06/12/21. The following Plan of Care was established for this patient: Initial Frequency: 2x /Week Initial Duration: 4 Weeks Patient/Client Instruction: Educate patient on: Condition, Plan of Care For the Purpose of:: To decrease pain, To increase ROM, To improve muscle performance and motor function, To improve ability to perform ADL's, To increase tolerance to activity/condition/position, To improve performance and independence with ADL's, To improve ability of physical actions for home/community/work/leisure, To improve health of tissue, To decrease soft tissue restriction, To increase flexibility/ROM, To improve balance, To assume or resume ADL's, To reduce risk of recurrence, To improve health and function, To improve ability to perform tasks related to life management Therapeutic Exercise to Include: Strength training, Body mechanics, Postural training, Flexibilty training, Active ROM For the Purpose of:: To decrease pain, To increase ROM, To improve muscle performance and motor function, To improve ability to perform ADL's, To increase tolerance to activity/condition/position, To improve performance and independence with ADL's, To improve ability of physical actions for home/community/work/leisure, To improve health of tissue, To decrease soft tissue restriction, To increase flexibility/ROM, To assume or resume ADL's, To reduce risk of recurrence, To improve ability to perform tasks related to life management TENS: Yes IF ES: Yes Cryotherapy (ice pack, ice massage): Yes Thermo therapy (hot pack): Yes Ultrasound (thermal/non thermal): Yes For the Purpose of:: To decrease pain, To improve nutrient delivery to tissue, To increase oxygenation perfusion, To improve health of tissue, To decrease soft tissue restriction This patient was last seen in our office . Pertinent comments regarding their Physical therapy will appear below: Patient seen for PT EVAL for HEP for LPB thus is d/c. At this point I will be discontinuing this patient from physical therapy. I would be happy to see this patient again in the future if found appropriate by the physician. Thank you! Ezra Laguna, PT, Cert MDT, OCS Balance/Gait/Functional tests - Balance/Special Test Scores Oswestry Low Back Score: 29
== END 2021-06-12 19:00 | disposition home or self-care (01) ==
LOC: PT 15:00
PROVIDERS: PCP Internal Medicine; Referring Provider Internal Medicine; Visit Provider Internal Medicine
DX: M54.41 Lumbago with sciatica, right side (principal)
CPT/HCPCS: 97110; 97162

== ENCOUNTER → 2021-06-20 11:39 | Outpatient (CLI) | payer OTHER, BC, SELFPAY ==
--- NOTE | 2021-06-20 11:47 | RAD_ITS ---
STUDY: X-RAY - RIGHT ANKLE REASON FOR EXAM: Male, 56 years old. R ANKLE SWELLING TECHNIQUE: 3 view(s) of the ankle. COMPARISON: None. FINDINGS: Nondisplaced oblique fracture of the distal fibula. Normal medial and lateral malleoli. Normal tibiotalar articulation and ankle mortise. Normal visualized talus and calcaneus. The visualized subtalar, talonavicular, calcaneocuboid and tarsal articulations are normal. Soft tissue swelling. RAD/Ankle min 3 Views IMPRESSION: Nondisplaced oblique fracture of the distal fibula with overlying soft tissue swelling. Electronically Signed: Rodger Camara MD at 12:30 EDT , Service support ,
== END ==
PROVIDERS: PCP Internal Medicine; Referring Provider Internal Medicine; Visit Provider Internal Medicine
DX: S82.831A Other fracture of upper and lower end of right fibula, initial encounter for closed fracture (principal); X58.XXXA Exposure to other specified factors, initial encounter
CPT/HCPCS: 73610

== ENCOUNTER 2021-10-09 08:30 | Outpatient (RCR) | payer BC, SELFPAY ==
--- NOTE | 2021-09-11 09:07 | HP.PTEVAL ---
Patient's Visit Information AUGUSTUS LIND is a 56 year old M referred to Physical Therapy by Dr. Aleida Marcelo DO with a diagnosis of Lumbar Radiculopathy. Date of Evaluation: 09/11/21 Physical Therapist: Karen Zapata DPT - Visit Plan Frequency: 1x/Week Duration: 4 Weeks Plan: Lumbar Radiculopathy- Focus on LE and core strength/stabilization- Right is weaker than left. Ultrasound and TENS modality of choice - Subjective He has had a lower back problem for years- so he babies it and watches what he does. If he starts stooping, lifting or being off kilter it aggravates it. Inflammation then goes away- but if he overdoes it then the sciatic nerve gets involved. In May this happened- he went to the MD who wrote an order for PT. He came to [facility]- saw [facility]- was able to pinpoint which disc and nerve entrapment. Right after his first apt he broke his ankle. He rolled it and it gave out and broke. So he had to cancel his PT. He started PT at [facility] on his ankle. [facility] does strength training for his ankle and his leg. They are aware of his back and knows that his weakness is coming from his back. He has a lot of right leg weakness. MD says to give him right leg strength- if it does not improve then they are planning to do an MRI. When he tries to strengthen the leg it becomes numb and feels weaker. Weakest portion is when he performs hip flexion. He has to take 3-4 breaks when doing 20 leg lifts. He does not have pain in the leg at this time just in his back. The pain is his back is across the whole lumbar spine along the belt line right>left. Describes the pain in his back as pain and would not say sharp. Agg: walking, standing, stooping, lifting. Worst: 4/10 Best: /10 Eases: rest- he will take it easier if the back is bothering him. He takes Aleve and that helps but doesn't take it a lot due to his BP meds. No N/T in the right LE. Feels the weakness is not worse but its not getting better. Sleep: not disturbed-side and back sleeper. Best position is sitting proper and upright. No change or loss of bowel or bladder. No x-rays or MRI at this time. The leg does buckle under his and he has had two falls. 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 PMHx: HTN Meds: lisopril, metaprolol, hydrochlorothiazie - Objective Posture: FH, RS- can correct with verbal and tactile cues but does not maintain. Gait: slightly deviated- decrease stance on the right LE with poor push off. Stairs: asc- recip requires UE A for propulsion desc- recip with poor eccentric control. HR/TR: able. SLS: 3 seconds then LOB- no buckling. Sensation: WFL. Reflex: Patellar 2+. ROM: WFL in all planes pain with left SB. Strength: Core: poor plus, Right Hip: 3+/5 throughout, Knee: 4+/5, Ankle: 4+/5 Left: Hip: 4+/5, Knee: 5/5, Ankle: 5/5. Special Test: Dural signs: positive right, Slump: positive right, SLR: positive right. Repeated Extn/Flex: no change in s/s. Flex: HS: moderate, Gastroc: moderate. Right Ankle Fracture with NWB and CAM Walker in May- february skew objective measures - Balance/Special Test Scores Oswestry Low Back Score: 14 - Goals Goal 1:: Patient will be I with HEP and progression Goal Time Frame: 4-6 Weeks Goal 2:: Patient will report no radiating s/s down his right LE Goal Time Frame: 4-6 Weeks Goal 3:: Patient increase hip flexion strength right 4/5 to improve gait Goal Time Frame: 4-6 Weeks Goal 4:: Patient to increase back owestry score by 5 points or> to improve function/QOL Goal Time Frame: 4-6 Weeks - Rehabilitation Potential Physical Therapy Diagnosis: Patient presents with hypomobility- he has decreased LE and core strength/stabilization, flex and muscular endurance leading to poor posture, positive dural signs and increased pain with ADL's. Rehabilitation Potential: Fair - Anticipated Interventions Patient/Client Instruction: Educate patient on: Benefits of Fitness Program Therapeutic Exercise to Include: Strength training, Endurance training, Balance training, Coordination, Agility training, Body mechanics, Postural training, Flexibilty training, Gait and locomotor training, Neuromotor development, Dynamic Lumbar Stabilization, Scapular Strength/Stabilization For the Purpose of:: To improve muscle performance and motor function TENS: Yes Cryotherapy (ice pack, ice massage): Yes Thermo therapy (hot pack): Yes Ultrasound (thermal/non thermal): Yes Thank you for the opportunity to evaluate your patient. For Medicare and Medicare HMO plans, please review the plan of care and approve it. It will need to be FAXED BACK to us at [phone] for Medicare purposes. For Medicare only, by signing this I certify the plan of care. Please let me know if there are questions or concerns regarding this plan of care. Physician Signature: Date:
--- NOTE | 2021-10-09 08:54 | HP.PTREVAL ---
Dr. Aleida Marcelo, DO, It has been my pleasure to treat AUGUSTUS LIND over the last 8 visits for Lumbar Radiculopathy. Please see the progress note below for an update on the physical therapy plan of care! Subjective: Patient reports that PT is trying new exercises for his core- but as of today he feels that its not really pain its numbness and weakness in his leg. The more he works it the weaker he feels the leg becomes. He knows the nerve doesn't work so its not better. Goes back to the MD on morning. He does feel like the right leg dusty but he has not had any falls. He finished PT on his ankle- 95% back to normal. He will continue with a HEP- he reports compliance. He is off work until he sees the MD on - but work doesn't him back until he is 100% Objective/Function: Posture: Improved- FH, RS- can correct with verbal and maintain. Gait: no deviation noted Stairs: asc/desc 8 recip with 1 HR HR/TR: able. SLS: 15 seconds no buckling. Sensation: WFL. Reflex: Patellar 2+. ROM: WFL in all planes . Strength: Core: fair, Right Hip: 4/5 throughout, Knee: 5/5, Ankle: 5/5 Left: Hip: 4+/5, Knee: 5/5, Ankle: 5/5. Special Test: Dural signs: positive right, Slump: positive right, SLR: positive right. Repeated Extn/Flex: no change in s/s. Flex: HS: moderate, Gastroc: moderate. Plan Plan: 10/09/21: Hold- return to MD for further evaluation. IE: Lumbar Radiculopathy- Focus on LE and core strength/stabilization- Right is weaker than left. Ultrasound and TENS modality of choice Balance/Gait/Functional tests - Balance/Special Test Scores Oswestry Low Back Score: 13 Goals Goal 1:: Patient will be I with HEP and progression Goal Time Frame: 4-6 Weeks Goal Progress: Goal Met Goal 2:: Patient will report no radiating s/s down his right LE Goal Time Frame: 4-6 Weeks Goal Progress: Not Progressing Goal 3:: Patient increase hip flexion strength right 4/5 to improve gait Goal Time Frame: 4-6 Weeks Goal Progress: Progressing Goal 4:: Patient to increase back owestry score by 5 points or> to improve function/QOL Goal Time Frame: 4-6 Weeks Goal Progress: Progressing Anticipated Interventions Patient/Client Instruction: Educate patient on: Benefits of Fitness Program Therapeutic Exercise to Include: Strength training, Endurance training, Balance training, Coordination, Agility training, Body mechanics, Postural training, Flexibilty training, Gait and locomotor training, Neuromotor development, Dynamic Lumbar Stabilization, Scapular Strength/Stabilization For the Purpose of:: To improve muscle performance and motor function TENS: Yes Cryotherapy (ice pack, ice massage): Yes Thermo therapy (hot pack): Yes Ultrasound (thermal/non thermal): Yes Please do not hesitate to contact me at [phone] by phone or if you have questions or concerns regarding this new plan of care! Sincerely, FIDELINA RolonT
--- NOTE | 2021-11-15 15:20 | HP.PT.NRP ---
AUGUSTUS LIND was seen in my office for initial evaluation on 09/11/21. The following Plan of Care was established for this patient: Initial Frequency: 1x/Week Initial Duration: 4 Weeks Patient/Client Instruction: Educate patient on: Benefits of Fitness Program Therapeutic Exercise to Include: Strength training, Endurance training, Balance training, Coordination, Agility training, Body mechanics, Postural training, Flexibilty training, Gait and locomotor training, Neuromotor development, Dynamic Lumbar Stabilization, Scapular Strength/Stabilization For the Purpose of:: To improve muscle performance and motor function TENS: Yes Cryotherapy (ice pack, ice massage): Yes Thermo therapy (hot pack): Yes Ultrasound (thermal/non thermal): Yes This patient was last seen in our office . Pertinent comments regarding their Physical therapy will appear below: Patient has attended PT in over 30 days- appropriate to be d/c from PT- follow up with MD for further evaluation. At this point I will be discontinuing this patient from physical therapy. I would be happy to see this patient again in the future if found appropriate by the physician. Thank you! Karen Zapata DPT Balance/Gait/Functional tests - Balance/Special Test Scores Oswestry Low Back Score: 13
== END 2021-10-09 19:00 | disposition home or self-care (01) ==
LOC: PT 08:30
PROVIDERS: PCP Internal Medicine; Referring Provider Internal Medicine; Visit Provider Internal Medicine
DX: M54.41 Lumbago with sciatica, right side (principal)
CPT/HCPCS: 97014; 97035; 97110; 97162; 97164; G0283

== ENCOUNTER → 2021-10-25 16:04 | Outpatient (CLI) | payer BC, SELFPAY ==
--- NOTE | 2021-10-25 16:00 | MRI_ITS ---
STUDY: MRI LUMBAR SPINE WITHOUT CONTRAST REASON FOR EXAM: Male, 56 years old. WEAKNESS OF RIGHT LOWER EXTREMITY,LBP TECHNIQUE: Standardized fat and water weighted pulse sequences were obtained in the sagittal and axial planes. COMPARISON: 04/11/2020 FINDINGS: Straightening of the normal alignment of the columns of the lumbar spine is visualized. No evidence of spondylolisthesis. The lumbar vertebral bodies demonstrate no evidence of compression deformity, multilevel degenerative endplate changes seen. Subtle T2 prolongation visualized in the underlying the superior endplate of L5 and the inferior endplate of L4 vertebral body that correlates with degenerative changes seen on the T1 and T2-weighted images, STIR sequence otherwise demonstrates no evidence of T2 prolongation to suggest acute fracture, edema or infiltrative process. Disc desiccation visualized throughout the lumbar spine. Decreased intervertebral disc height visualized most prominent at L4-L5 intervertebral disc space. The cord terminates at the level of the L1-2 intervertebral disc space, no abnormal signal intensity visualized within the terminal cord. The terminal neurofibers demonstrate no evidence of thickening or clumping to suggest arachnoiditis.. Limited evaluation of the abdominal soft tissues is unremarkable. The paravertebral soft tissues are unremarkable. L1-2: Degenerative changes visualized in the intervertebral disc and facet joints with no significant narrowing of the spinal canal or bilateral neural foramina is visualized at this level. L2-3: Degenerative changes visualized in the intervertebral disc and facet joints with no significant narrowing of the spinal canal or bilateral neural foramina is visualized at this level. L3-4: Left far lateral disc bulge is visualized, hypertrophic changes in the facet joints and ligamentum flavum visualized at this level. Mild effacement of the ventral CSF spaces with no significant narrowing of the spinal canal is seen, moderate to severe narrowing of the right neural foramina and moderate narrowing of the left neuroforamina is seen at this level. L4-5: Circumferential disc bulges hypertrophic changes in the facet joints and ligamentum flavum is visualized at this level. Mild narrowing of the spinal canal with moderate to severe narrowing of the right neural foramina and mild to moderate narrowing of the left neuroforamina seen at this level. L5-S1: Circumferential disc bulge with hypertrophic changes in the facet joints, no significant narrowing of the spinal canal and moderate narrowing of bilateral neuroforamina seen at this level. MRI/Spine Lumbar (Routine) IMPRESSION: Multilevel degenerative changes of the lumbar spine visualized most prominent at L4-L5. Electronically Signed: Yves Solis MD at 11:25 EST Tel , Service support ,
== END ==
PROVIDERS: PCP Internal Medicine; Visit Provider Internal Medicine
DX: R29.898 Other symptoms and signs involving the musculoskeletal system (principal)
CPT/HCPCS: 72148

== ENCOUNTER 2021-11-14 08:02 | Outpatient (RCR) | payer BC, SELFPAY ==
--- NOTE | 2021-11-14 14:34 | HP.OTFCE_ITS ---
Floor (Occasional 1-33% of Day): 50# Floor (Frequent 34-66% of Day): 25# Floor (Constant 67-100% of Day): 10# Floor PDL: Medium Knee (Occasional 1-33% of Day): 50# Knee (Frequent 34-66% of Day): 25# Knee (Constant 67-100% of Day): 10# Knee PDL: Medium Waist (Occasional 1-33% of Day): 50# Waist (Frequent 34-66% of Day): 25# Waist (Constant 67-100% of Day): 10# Waist PDL: Medium Shoulder (Occasional 1-33% of Day): 45# Shoulder (Frequent 34-66% of Day): 22# Shoulder (Constant 67-100% of Day): 9# Shoulder PDL: Light-Medium Overhead (Occasional 1-33% of Day): 30# Overhead (Frequent 34-66% of Day): 15# Overhead (Constant 67-100% of Day): NA Overhead PDL: Light Bending: Frequent Ability (34-66% of day) Squatting: Occasional Ability (1-33% of day) Comments: with use of external support Kneeling: Occasional Ability (1-33% of day) Comments: with use of external support Reaching out: Frequent Ability (34-66% of day) Reaching up: Frequent Ability (34-66% of day) Sitting: Frequent Ability (34-66% of day) Walking: Frequent Ability (34-66% of day) Standing: Frequent Ability (34-66% of day) Duration Sedentary Sedentary Light Light Light Medium Medium Medium Heavy Very Heavy Heavy Occasional (0-33% of day) Frequent (34-66% of day) Constant (67-100% of day) 10 # Negligible Negligible 15 # 8 # Negligible 20 # 10# Negli. 35 # 18 # 7 # 50 # 25 # 10 # 75 # 100 # >100 # 38 # 50 # >50 # 15 # 20 # >20 # Weight:: 69.853 kg Hand Dominance: right Medical History Including Restrictions: Pt states he was in good health and has had low back pain but in the last year he had 2 sciatic nerve flairs and decided to get this looked at to stop the pain- pt states he has been seen by Physical therapy but this did not help leg strength- pt states he went to therapy 2x week for 4 weeks and he did not get stronger- pt states he was given HEP but is not doing it. pt states he did have MRI. pt states he broke his ankle at work from a fall (rolled his ankle). pt states he did recover well from his ankle injury. pt has concerns with increase leg weakness with increase activity. Diagnoses: Hypertension. DDD. Budging disk. \intervertebral Disc displacement lumbar region Symptoms: Low Back pain. Bilateral Leg weakness. Bilateral leg numbness Pain: Pt states he does have pain in is low back states he is at 2-3/10 pain. pt states at night he takes alive Work History: pt states he has been on short term disability. 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 Pt state he has to stand for long periods of time. pt states he works 8 hour shifts - but are required to work overtime. Behavioral: pt was cooperative throughout the assessment ADLS: Pt lives in a two story home with and a cat. pt has two entry steps no rails- pts bedroom is on 2nd floor and has a flight 12-14 steps to climb with tow railings- pt does have bathroom on 2nd and 1st floor. pt does drive IND. pt state he can stand for his shower and can perform at IND. level for bathing and dressing. Pt states he can do yard work at his own pace. 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 pt states his works full-time and will help with yard work as able. does grocery shopping, cooking, and laundry. pt states he does cleaning. ROM: pt demo with ROM WNL Strength: Bilateral UE MMT 5/5. Right hip flexion 4-/5 left 4/5. right hamstring/quad 4-/5 left 4/5. hip adduction/abduction 4/5 Right Reimbursement Director Strength Average: 90.00 Right Reimbursement Director Strength Percentile: 36.9% Left Reimbursement Director Strength Average: 90.00 Left Reimbursement Director Strength Percentile: 48% Right Lateral Pinch Average: 15.33 Right Lateral Pinch Percentile: 10% Left Lateral Pinch Average: 14.00 Left Lateral Pinch Percentile: 10% Right Tripod Pinch Average: 19.33 Right Tripod Pinch Percentile: 50% Left Tripod Pinch Average: 20.00 Left Tripod Pinch Percentile: 75% Comments: pt demo with resting heart rate at 67 Sensation: denies sensation deficits in hands. Pt states right leg thigh down to his knee sensation is diminished Fine Motor: denies deficits Balance: Pt demo with good -normal balance during assessment Bending: pt demo the ability to bend forward 3/3, 10/10 and 10/10 rapidly. pt can bend forward on a frequent ability. pt reported low back pain 3/10. Squatting: pt demo the ability to squat 3/3, 10/10, 10/10 rapidly-pt did use external support to complete tasks. heart rate 107. pt states legs were getting fatigued and muscle burning. back pain 4/10. pt cam squat on a Occasional ability Kneeling: pt demo the ability to kneel 3/3, 10/10 with external support. pt unable to perform 10/10 rapidly. pt reported back pain 5/10. heart rate 134. pt can kneel on a occasional ability. Reaching out/up: pt demo the ability to reach up/out 3/3, 10/10 and 10/10 rapidly while standing. pt can reach up/out on a frequent ability. heart rate 94 Walking: pt ambulated 10 min with a antalgic reciprocal step patter- therapist noted his right foot would slap on floor with ambulation. pt can ambulate on a occasional ability safely. Standing: pt demo the ability to stand for 10 min with shifting his body weight. pt can stand on occasional ability. Sitting: pt demo the ability to sit for 30 min with no expressed or apparent discomfort- pt can sit on a frequent ability. Climbing Stairs: pt demo the ability to ascend and descend ten steps with a reciprocal step pattern and use of bilateral hand rails. Floor Lift: pt demo the ability to lift 50# maximally from this level with good lifting mechanics. Knee Lift: pt demo the ability to lift 50# maximally from this level with good lifting mechanics. Waist Lift: pt demo the ability to lift 50# maximally from this level with good lifting mechanics. Shoulder Lift: pt demo the ability to lift 45# maximally from this level with good lifting mechanics. Overhead Lift: pt demo the ability to lift 30# maximally from this level with good lifting mechanics. Carrying: pt demo the ability to carry 30# for 30 feet with good ability. Comments: pt states with increase activity he has increase symptoms of pain, weakness and numbness. pain 5/10. pt demo with increase in right leg weakness after ambulation for 12 min (noted by foot slap following)
--- NOTE | 2021-11-14 14:34 | HP.OTFCE.D ---
FCE D/C Summary - Discharge AUGUSTUS LIND was seen for a one time visit for an FCE on 11/14/21 and is discharged.
== END 2021-11-14 19:00 | disposition home or self-care (01) ==
LOC: OT 08:02
PROVIDERS: PCP Internal Medicine; Referring Provider Internal Medicine; Visit Provider Internal Medicine
DX: M51.26 Other intervertebral disc displacement, lumbar region (principal)
CPT/HCPCS: 97750

== ENCOUNTER 2022-01-05 08:52 | Outpatient (CLI) | payer BC, SELFPAY ==
--- NOTE | 2022-01-05 10:04 | NEURO ---
NCS and/or EMG Patient Report Ordering Doctor: Reginald Curtis DATE OF SERVICE: 01/05/22 Indication: Right lower extremity numbness and weakness. Evaluate for lumbar radiculopathy. Findings: Nerve conduction studies were performed in the right and left lower extremity. The right peroneal motor study recording the extensor digitorum brevis showed a slightly reduced amplitude, normal distal latency and normal conduction velocity. No conduction block or focal slowing was present across the fibular neck. The left peroneal motor study recording the extensor digitorum brevis showed a slightly reduced amplitude and was symmetric with the right. The right peroneal motor study recording the tibialis anterior showed a normal amplitude, normal distal latency and normal conduction velocity. No conduction block or focal slowing was present across the fibular neck. The right tibial motor study recording the abductor hallucis brevis showed a normal amplitude, normal distal latency and normal conduction velocity. Right sural sensory response showed a normal amplitude and conduction velocity. Right superficial peroneal sensory response showed a normal amplitude and conduction velocity. Right plantar sensory response showed an absent response, but was likely technical in nature. Needle EMG of the right lower extremity and lumbar paraspinal muscles was performed. Insertional activity was slightly increased in the medial gastrocnemius with one brief run of positive sharp waves. No denervation was present in any other muscle. The motor units of the extensor hallucis longus were distant, but recruitment was normal. All motor unit morphology, activation and recruitment patterns were normal. Impression: This is an essentially normal study. There is no electrophysiologic evidence of lumbosacral radiculopathy, plexopathy, or peripheral neuropathy of either the right lower extremity. The sparse active denervation isolated to the medial gastrocnemius is of unclear significance. Please note: the electrodiagnosis of radiculopathy is made on the basis of excluding peripheral nerve lesions on nerve conduction studies and the needle EMG demonstrating denervation and/or reinnervation in the distribution of one or more nerve roots (i.e., acute and/or chronic axonal loss). Thus, electrodiagnostic studies are insensitive in detecting radiculopathy in the absence of axonal loss (e.g., in the setting of compression resulting in intermittent ischemia or mechanical deformation; or demyelination without axonal loss). Thus, clinical correlation is required in the interpretation of this negative electrodiagnostic study for radiculopathy. Nato Hodge D.O. Multi Select Codes Neurology Neurology Interp Codes: 35570-42 Musc test done w/n test comp (interp) and 92703-34 Nrv cndj test 7-8 studies (interp)
== END 2022-01-05 23:59 | disposition home or self-care (01) ==
LOC: PSN 08:54
PROVIDERS: PCP Internal Medicine; Referring Provider Orthopaedic Surgery; Visit Provider Orthopaedic Surgery
DX: R20.2 Paresthesia of skin (principal); M47.26 Other spondylosis with radiculopathy, lumbar region; M48.061 Spinal stenosis, lumbar region without neurogenic claudication
CPT/HCPCS: 95886; 95910

== ENCOUNTER 2022-04-01 02:52 | Inpatient (IN) | payer BC, SELFPAY ==
[2022-04-01] VITALS (16 sets, daily range): BP systolic 100–134; BP diastolic 65–86; PULSE 99–116; RESP 13–20; TEMP 36.4–37.2; O2SAT 80–98; BMI 22.1; BMI 23.6
--- NOTE | 2022-04-01 03:28 | EKG12_ITS ---
Test Reason : SOB Blood Pressure : / mmHG Vent. Rate : 102 BPM Atrial Rate : 102 BPM P-R Int : 146 ms QRS Dur : 096 ms QT Int : 338 ms P-R-T Axes : 029 -08 074 degrees QTc Int : 440 ms Sinus tachycardia Left ventricular hypertrophy with repolarization abnormality Abnormal ECG Confirmed by JULIO BOWMAN, DAJUAN ([id number]), editor news GABRIELE QUIROZ ([id number]) on 04/05/2022 9:34:23 AM Referred By: Irma Menendez Confirmed By:DAJUAN KIM MD
--- NOTE | 2022-04-01 03:29 | RAD_ITS ---
STUDY: X-RAY - ACUTE ABDOMINAL SERIES REASON FOR EXAM: Male, 57 years old. Dyspnea, abdominal pain TECHNIQUE: Single view of the chest. Supine, and erect view(s) of the abdomen were obtained. COMPARISON: None. FINDINGS: The lungs are clear and expanded. Normal size heart. Normal mediastinum and makayla. Normal visualized pulmonary arteries. Normal visualized aortic arch and descending thoracic aorta. There is a non-specific bowel gas pattern. The soft tissue structures of the abdomen and pelvis are unremarkable. Normal visualized osseous structures. RAD/Acute Abdomen Inc Chest IMPRESSION: Lungs are clear. Nonspecific bowel gas pattern without overt evidence of obstruction however, possible mildly dilated loops of small bowel. Consider CT to further evaluate Electronically Signed: Jhon Asif DO at 5:05 EDT ,
[2022-04-01] MEDS: Ipratropium/Albuterol Sulfate 3 ML AMPUL.NEB INHALATION ×3 (03:39→18:46)
--- NOTE | 2022-04-01 03:53 | EX.ED.DYSGE1 ---
HPI History of Present Illness Chief Complaint: Shortness of Breath Informant: patient Onset/Context/Timing Onset: Yesterday Context: Gradual Onset Timing: Continuous Quality: Wheezing Location: Chest Worsened by: Laying flat Relieved by: Sitting up Narrative Narrative: Patient presents with low blood pressure, low pulse ox, and increased heart rate tonight. Patient states it actually started yesterday and became worse tonight. Patient states he feels like he is wheezing in his chest. Patient states it is better when he sits up. Patient states it is worse when he lays flat. Patient denies any fevers or chills. Patient admits to a mild sore throat. Patient also admits to mild cough. Patient denies any chest pain. Patient denies any nausea or vomiting. Patient states he had back surgery 4 days ago. Patient was discharged from the hospital yesterday. Patient states his back incision is healing well. Patient denies any discharge or drainage from the incision. Patient states his back pain is only mild. [facility] Medical History Essential (primary) hypertension MGUS (monoclonal gammopathy of unknown significance) Purpura Home Medications hydrochlorothiazide 25 mg tablet 25 mg PO DAILY #90 tab 12/15/21 [Rx Last Taken Unknown] lisinopril 20 mg tablet 20 mg PO BID #180 tab 12/15/21 [Rx Last Taken Unknown] metoprolol succinate 50 mg tablet,extended release 24 hr 50 mg PO DAILY #90 tab 12/15/21 [Rx Last Taken Unknown] Allergy/AdvReac Type Severity Reaction Status Date / Time No Known Allergies Allergy Verified 04/01/22 03:02 Family History Mother Hypertension Diabetes Father Arthritis Sister Diabetes Surgical History History of back surgery History of tonsillectomy history tendon repair right arm Social History household members: spouse Smoking Status: Never smoker alcohol intake: current alcohol intake frequency: a few times a month substance use type: does not use ROS ROS ED Constitutional Constitutional ED: Denies chills or fever(s) Eyes Eyes: Denies blurry vision or change in vision ENT ENT ED: Reports sore throat; Denies rhinorrhea Cardiovascular Cardiovascular: Denies chest pain or palpitations Respiratory/Chest Respiratory/Chest: Reports cough and dyspnea Gastrointestinal Gastrointestinal: Reports constipation; Denies nausea or vomiting Genitourinary Genitourinary ED: Denies dysuria or hematuria Musculoskeletal Musculoskeletal: Denies back pain or neck pain Integumentary Denies abscess or rash Neurologic Neurologic: Denies headache(s) or weakness Allergic/Immunologic Allergic/Immunologic ED: Denies mouth swelling or urticaria EXAM Physical Exam Const Vital Signs: 04/01/22 02:54 04/01/22 02:55 04/01/22 03:41 Temperature 97.8 F Temperature Source Oral Pulse Rate 111 H 112 H Respiratory Rate 16 18 Respiratory Pattern Normal Blood Pressure 132/74 H Blood Pressure Mean 93 Pulse Ox 93 80 Oxygen Delivery Method Nasal Cannula Room Air Oxygen Flow Rate (L/min) 3 Positive well nourished and well developed General Appearance ED: well developed and NAD HEENT Reports moist mucous membranes Neck supple and no JVD Resp normal respiratory effort Auscultation: diminished lung sounds diffuse Cardio regular rhythm Rate: tachycardic GI Palpation: soft and tender epigastric, LLQ, RLQ, LUQ, RUQ, periumbilical and suprapubic; Negative for guarding or rebound tenderness present Neuro oriented x3, CN's II-XII intact bilaterally and no sensory deficits noted Sensorium / Orientation: alert Motor Exam: strength 5/5 throughout Psych mental status grossly normal MDM MDM MDM Narrative Medical decision making narrative: Patient was given IV fluids and morphine here. Patient was also given a DuoNeb aerosol here. EKG was obtained. On my interpretation shows sinus tachycardia with a rate of 102. AK interval, QRS interval, and QTc intervals are both within normal limits. Beemer is normal. There is left ventricular hypertrophy noted with nonspecific ST-T wave changes. There are no acute changes noted. CBC shows a white blood cell count of 3.4 and hemoglobin of 11.5. Comprehensive metabolic profile shows a BUN of 46 and creatinine of 1.56. Glucose was slightly elevated at 151. Urinalysis does not show any evidence of urinary tract infection or hematuria. Acute abdominal series with PA chest was ordered. There are 4 views. On my interpretation, there is no acute infiltrate noted. There is no acute cardiopulmonary process. There is dilated loops of bowel. There is nonspecific bowel gas pattern without evidence of obstruction. This was also interpreted by the radiologist who agrees. Radiologist also recommended obtaining CT scan for further evaluation if clinically warranted. Since the patient had recent surgery CTA of the chest was ordered along with a CT of the abdomen pelvis with oral and IV contrast. Case was discussed with the hospitalist. She will admit the patient to her service. Patient understood and was agreeable with the plan. All questions were answered. Lab Data Attestation: I reviewed the patient's lab results. Labs: Laboratory Results - last 24 hr 04/01/22 04/01/22 04/01/22 03:50 03:50 04:12 WBC 3.4 L RBC 3.55 L Hgb 11.5 L Hct 35.5 L MCV 100.0 H MCH 32.4 H MCHC 32.4 RDW Std Deviation 55.8 H RDW Coeff of Real 14.8 H Plt Count 257 MPV 9.6 Immature Gran % (Auto) COMPLIANCE REVIEWER Neut % (Auto) COMPLIANCE REVIEWER Lymph % (Auto) COMPLIANCE REVIEWER [place] % (Auto) COMPLIANCE REVIEWER Eos % (Auto) COMPLIANCE REVIEWER Baso % (Auto) COMPLIANCE REVIEWER Absolute Neuts (auto) 2.3 Absolute Lymphs (auto) 1.07 Total Counted 100 Neutrophils % (Manual) 55 Band Neutrophils % 7 H Lymphocytes % (Manual) 31 Monocytes % (Manual) 2 Metamyelocytes % 5 H Nucleated RBC % 0 Diff Path Review May foll Platelet Estimate ADEQUATE RBC Morphology NORM C+C Sodium 137 Potassium 3.6 Chloride 99 Carbon Dioxide 34.0 H Anion Gap 4 L BUN 46 H Creatinine 1.56 H Estim Creat Clear Calc 50.37 Est GFR (MDRD) Af Amer 59 L Est GFR (MDRD) Non-Af 49 L BUN/Creatinine Ratio 29.5 H Glucose 151 H Calcium 8.8 Total Bilirubin 0.20 AST 37 ALT 43 Alkaline Phosphatase 78 Total Protein 6.5 Albumin 3.0 L Globulin 3.5 Albumin/Globulin Ratio 0.9 Urine Color Yellow Urine Clarity Clear Urine pH 5.0 Ur Specific [place] 1.020 Urine Protein 30 H Urine Glucose (UA) Normal Urine Ketones Negative Urine Occult Blood 10 H Urine Nitrite Negative Urine Bilirubin Negative Urine Urobilinogen Normal Ur Leukocyte Esterase 25 H Urine RBC 0 SEEN Urine WBC 0-5 SEEN Ur Squamous Epith Cells 0 SEEN Urine Bacteria 1+ Hyaline Casts 10-25 SEEN Urine Mucus 0 SEEN Radiography Diagnostic Testing: Clinical Impression(s) from Imaging Studies Acute Abdomen Series 04/01/22 03:29 IMPRESSION: Lungs are clear. Nonspecific bowel gas pattern without overt evidence of obstruction however, possible mildly dilated loops of small bowel. Consider CT to further evaluate Electronically Signed: Jhon Asif DO at 5:05 EDT Reading Location ID and State: [address] [place] [address] Tel , Service support , EKG Initial EKG: Interpretation: Sinus Tachycardia (102) and Non-Specific ST Changes Discharge Plan Dx/Rx/DC Orders Clinical Impression: Hypoxia, MARYLOU (acute kidney injury), Ileus Disposition Disposition: Acute Care Hospital [facility]
[2022-04-01] MEDS: 0.9% Normal Saline 1,000 ML 1000 ML IV (03:56)
[2022-04-01] MEDS: Morphine 4 MG/ML Syringe IV (03:56)
[2022-04-01 04:00] LABS: Absolute Neutrophil Count 2.3 X10^3/uL (2.0-7.7); Hematocrit 35.5 % (40-54); Hemoglobin 11.5 g/dL (13.0-16.5); Mean Corp Hgb Conc 32.4 g/dL (32-36); Mean Corpuscular Hgb 32.4 pg (27.0-32.0); Mean Platelet Vol. 9.6 fl (6.2-12.0); NRBC Flagged by Analyzer 0 % (0-5); POSITIVE MORPHOLOGY YES; Platelet Count 257 K/mm3 (150-450); RBC Distribution Width CV 14.8 % (11.6-14.6); RBC Distribution Width SD 55.8 fl (35.1-43.9); Red Blood Count 3.55 M/mm3 (4.6-6.2); White Blood Count 3.4 K/mm3 (4.4-11.0)
[2022-04-01 04:26] LABS: ALB/GLOB Ratio 0.9 RATIO (0.9-2.4); AST(SGOT) 37 U/L (15-37); Alanine Aminotransfer ALT/SGPT 43 U/L (16-61); Alkaline Phosphatase 78 U/L (45-117); Anion Gap 4 (5-15); BUN 46 mg/dL (7-18); BUN/Creat Ratio 29.5 RATIO (10-20); Calcium,Total 8.8 mg/dL (8.5-10.1); Chloride 99 mmol/L (98-107); Creatinine, Serum 1.56 mg/dL (0.70-1.30); Differential Indicated SCAN CRITERIA MET; EST Glomerular Filtration Rate 49 mL/min (>60); Est Glom Filt Rate - Afr Amer 59 mL/min (>60); Estimated Creatinine Clearance 50.37 ml/min; Globulin 3.5 g/dL (2.2-4.2); Glucose 151 mg/dL (74-106); Potassium 3.6 mmol/L (3.5-5.1); Protein, Total 6.5 g/dL (6.4-8.2); Sodium Level 137 mmol/L (136-145)
[2022-04-01 04:33] LABS: Mucous, Urine 0 SEEN /hpf (<or=2+); Red Blood Cells-Urine 0 SEEN /hpf (0-5); Squamous Epithelial Cells - UA 0 SEEN /hpf (0-5)
[2022-04-01 04:39] LABS: Color, Urine Yellow (Yellow); Glucose, Dipstick Normal (Normal); Ketone-Dipstick Negative (Negative); Leukocyte Esterase-Dipstick 25 /ul (Negative); Nitrite-Dipstick Negative (Negative); Occult Blood-Urine 10 /ul (Negative); Protein-Dipstick 30 mg/dl (Negative); Urine Bilirubin Dipstick Negative (Negative); Urine Clarity Clear (Clear); Urine Urobilinogen Normal (Normal)
[2022-04-01 04:49] LABS: Bacteria 1+ /hpf (None Seen); Hyaline Cast 10-25 SEEN /lpf (0-5); White Blood Cells 0-5 SEEN /hpf (0-5)
--- NOTE | 2022-04-01 04:56 | HP.PCM.HOS_ITS ---
HPI - General General Date of Admission: 04/01/22 Date of Service: 04/01/22 Chief Complaint: Acute Dyspnea, Hypoxia, Constipation HPI Narrative The patient is a 57 y/o M w/ PMHx: HTN, MGUS, Purpura simplex, Chronic back pain s/p recent OSH 03/28/22 L3-5 decompression, fusion, pedicle screw fixation hardware by Dr. Tani Lucia with discharged on 03/30/22 who now presents to the [facility] ED on 04/01/22 with history of onset dyspnea with noted hypoxia at home at 2 am on day of presentation, noting that he had a significant coughing cough as though something was stuck in his chest in addition as well as recent constipation following OR with last BM the day prior but ongoing abdominal distention and mild discomfort prompting ED presentation for evaluation. Patient notes that his back incision is healing well with no marked drainage with contro lled discomfort. Work-up in the ED included T97.8, heart rate 111, BP 132/74, respiratory rate 16, 80% on room air initially upon presentation, CBC with WC 3.4, hemoglobin 1.5, platelet 257 with lymphopenia with increased immature granulocytes, CMP with complex at 34, BUN/and 46/1.56, glucose 151 otherwise hepatic profile not marked appearing, urinalysis with evidence of dehydration but no obvious evidence of UTI, rapid COVID antigen negative, abdominal series no acute cardiopulmonary findings with nonspecific bowel gas pattern without overt evidence of obstruction however, possible mildly dilated loops of small bowel. In the ED patient ministered morphine, DuoNeb and normal saline. [facility] Medical History Essential (primary) hypertension MGUS (monoclonal gammopathy of unknown significance) Purpura Home Medications hydrochlorothiazide 25 mg tablet 25 mg PO DAILY #90 tab 12/15/21 [Rx Last Taken Unknown] lisinopril 20 mg tablet 20 mg PO BID #180 tab 12/15/21 [Rx Last Taken Unknown] metoprolol succinate 50 mg tablet,extended release 24 hr 50 mg PO DAILY #90 tab 12/15/21 [Rx Last Taken Unknown] Allergy/AdvReac Type Severity Reaction Status Date / Time No Known Allergies Allergy Verified 04/01/22 03:02 Family History Mother Hypertension Diabetes Father Arthritis Sister Diabetes Surgical History History of back surgery History of tonsillectomy history tendon repair right arm Social History household members: spouse Smoking Status: Never smoker alcohol intake: current alcohol intake frequency: a few times a month substance use type: does not use ROS ROS Narrative Admission Review of Systems: CONSTITUTIONAL: No weight loss, fever, chills, + weakness or fatigue. HEENT: Eyes: No visual loss, blurred vision, double vision or yellow sclerae. Ears, Nose, Throat: No hearing loss, sneezing, congestion, runny nose or sore throat. SKIN: No rash or itching, lesions, wounds. CARDIOVASCULAR: No chest pain, chest pressure or chest discomfort, palpitations, edema, orthopnea, syncopal events. RESPIRATORY: + Shortness of breath, cough without marked sputum, No wheezing, hemoptysis. GASTROINTESTINAL: + Anorexia, constipation, abdominal distention, No nausea, vomiting, diarrhea, melena, BRBPR. GENITOURINARY: No dysuria, frequency, urgency or retention. NEUROLOGICAL: No headache, dizziness, syncope, paralysis, ataxia, numbness or tingling in the extremities, focal weakness, change in bowel or bladder control, seizure. MUSCULOSKELETAL: + muscle, back pain, joint pain or stiffness. HEMATOLOGIC: + anemia, bleeding or bruising. LYMPHATICS: No enlarged nodes. No history of splenectomy. PSYCHIATRIC: No history of depression or anxiety. ENDOCRINOLOGIC: No reports of sweating, cold or heat intolerance. No polyuria or polydipsia. ALLERGIES: No history of asthma, hives, eczema or rhinitis. Vital Signs Vital Signs Vital Signs: 04/01/22 02:54 04/01/22 02:55 04/01/22 03:41 Temperature 97.8 F Temperature Source Oral Pulse Rate 111 H 112 H Respiratory Rate 16 18 Respiratory Pattern Normal Blood Pressure 132/74 H Blood Pressure Mean 93 Pulse Ox 93 80 Oxygen Delivery Method Nasal Cannula Room Air Oxygen Flow Rate (L/min) 3 Weight Weight: 154 lb Body Mass Index (BMI) 22.1 Physical Exam Narrative Physical Examination: General: Awake, alert, oriented x 3 and cooperative, seated upright in the ED bed, fatigued otherwise no distress apparent. Skin: Normal color, normal turgor, no icterus, no cyanosis, except well-healed lumbar incision with no drainage. HEENT: AT/NC, EOMI, PERRLA, moderately dry MM, no carotid bruits or JVD noted. Lungs: CTA bilaterally, moderate effort, mild decrease BL bases, no rales, ronchi or wheezing. Heart: Tachycardic with regular rhythm; no gallop, rub audible. Abdomen: Soft, NTTP however abdomen is mildly firm and distended, hypertympanic, no obvious HSM however distention does make evaluation difficult. Extremities: No cyanosis, clubbing, or edema. Neurological: Patient awake, alert, oriented as noted, cognitive function intact; pupils equally reactive to light and accommodation, cranial nerves II- XII grossly normal, moving all 4 extremities, no focal deficits, strength moderately globally Gifty secondary acute presentation Psychiatric: Affect appears fatigued, no acute evidence of depressive or anxiety feelings. Results Lab / Micro Data Result Diagrams: 04/01/22 03:50 04/01/22 03:50 Labs: Laboratory Results - last 24 hr 04/01/22 03:50: WBC 3.4 L, RBC 3.55 L, Hgb 11.5 L, Hct 35.5 L, MCV 100.0 H, MCH 32.4 H, MCHC 32.4, RDW Std Deviation 55.8 H, RDW Coeff of Real 14.8 H, Plt Count 257, MPV 9.6, Immature Gran % (Auto) 4.100 H, Neut % (Auto) 66.2, Lymph % (Auto) 20.1, [place] % (Auto) 8.4, Eos % (Auto) 0.9, Baso % (Auto) 0.3, Absolute Neuts (auto) 2.3, Absolute Lymphs (auto) 0.69 L, Nucleated RBC % 0 04/01/22 03:50: Sodium 137, Potassium 3.6, Chloride 99, Carbon Dioxide 34.0 H, Anion Gap 4 L, BUN 46 H, Creatinine 1.56 H, Estim Creat Clear Calc 50.37, Est GFR (MDRD) Af Amer 59 L, Est GFR (MDRD) Non-Af 49 L, BUN/Creatinine Ratio 29.5 H , Glucose 151 H, Calcium 8.8, Total Bilirubin 0.20, AST 37, ALT 43, Alkaline Phosphatase 78, Total Protein 6.5, Albumin 3.0 L, Globulin 3.5, Albumin/Globulin Ratio 0.9 04/01/22 04:12: Urine Color Yellow, Urine Clarity Clear, Urine pH 5.0, Ur Specific [place] 1.020, Urine Protein 30 H, Urine Glucose (UA) Normal, Urine Ketones Negative, Urine Occult Blood 10 H, Urine Nitrite Negative, Urine Bilirubin Negative, Urine Urobilinogen Normal, Ur Leukocyte Esterase 25 H, Urine RBC 0 SEEN, Urine WBC 0-5 SEEN, Ur Squamous Epith Cells 0 SEEN, Urine Bacteria 1+, Hyaline Casts 10-25 SEEN, Urine Mucus 0 SEEN Micro: Microbiology 04/01/22 03:50 Nasal Secretion SARS-CoV-2 & FLU Antigen (Rapid) - Final Assessment & Plan Assessment/Plan (1) Hypoxia: (2) MARYLOU (acute kidney injury): (3) Ileus: PLAN: The patient is a 57 y/o M w/ PMHx: HTN, MGUS, Purpura simplex, Chronic back pain s/p recent OSH 03/28/22 L3-5 decompression, fusion, pedicle screw fixation hardware by Dr. Tani Lucia with discharged on 03/30/22 who now presents to the [facility] ED on 04/01/22 with history of onset dyspnea with noted hypoxia at home at 2 am on day of presentation, noting that he had a significant coughing cough as though something was stuck in his chest in addition as well as recent constipation following OR with last BM the day prior but ongoing abdominal distention and mild discomfort prompting ED presentation for evalua tion. #1. Acute Hypoxia following recent Post-operative status, Concerning for possible Acute PE: Will admit to PCU given tachycardia, hypoxia, CXR without acute findings, COVID negative, will maintain on telemetry, as noted planned to obtain CT A/P and will concurrent obtain CTPA to assure no post-operative PE, maintain on heparin drip and de-escalate off if negative. #2. Acute constipation with suspected ileus: Patient with constipation following OR with bowel movement the day prior however still ongoing abdominal distention with abdominal series with no overt evidence of obstruction; however, to be cautious will maintain NPO status, place on IV PPI and obtain CT abdomen with IV/oral contrast. #3. Acute kidney injury: Secondary to likely acute presentation and decreased intake with recent constipation. Admission BUN/Cr 46/1.56, prior baseline creatinine noted to be 0.8-0.9 primarily. Will hydrate, hold nephrotoxic medications and repeat chemistry in AM. If no improvement would plan FeNa assessment. #4. Hyperglycemia: Possibly stress response, admission glucose 151, hemoglobin A1c will be obtained. #5. Recent Lumbar Decompression: [facility] 03/28/22 L3-5 decompression, fusion, pedicle screw fixation hardware by Dr. Tani Lucia, discharged on 03/30/22, incision well appearing, encourage continued follow-up with his surgeon as previously arranged. PT/OT/CM consultations given recent lumbar back surgery. #6. Leukopenia, anemia, macrocytic: Not noted prior, admission CBC with WC 3.4, hemoglobin 11.5 with MCV 100 however ANC 2.3 with increased immature granulocytes, will continue monitor repeat CBC in AM. #7. Hypertension: Continue home regimen including metoprolol, holding lisinopril and hydrochlorothiazide given MARYLOU, resume once appropriate, PRN hydralazine. Patient following w/ Cardiology and noted prior chart history of cardiomyopathy; however, not in most recent Cardiology visit note. Last ECHO 08/04/2020 w/ normal LV, normal LV systolic function, EF 60%, stage I diastolic dysfunction, mildly dilated aortic root. #8. MGUS, Purpura simplex: Following w/ Dr. [place], no history of bleeding disorder, possible purpura simplex secondary to sun exposure per last note from oncology, noted M-spike 0.2, IgG light change with planned ongoing outpatient oncology observation and monitoring of M-spike. #9. DVT prophylaxis: SCDs, heparin drip pending CTPA results given presentation with acute hypoxia. De-escalate if no PE. Charges/Coding Visit Charges Inpatient E&M: 92943 Init Hosp L3
[2022-04-01 05:01] LABS: Scan Smear per Review Criteria MANUAL DIFF
[2022-04-01 05:10] LABS: Lymphocyte 31 % (19-41); Metamyelocyte 5 % (0-1); Monocyte 2 % (0-10); Neutrophil-Band 7 % (0-5); Neutrophil-Segmented 55 % (47-70); Total Cells Counted 100 (MANUAL DIFF)
--- NOTE | 2022-04-01 05:10 | CT_ITS ---
STUDY: CTA CHEST REASON FOR EXAM: Male, 57 years old. Dyspnea. RECENT BACK SURGERY 03/28 RADIATION DOSAGE (If Supplied By Facility): CTDIvol = ( 13.76 ) mGy, DLP = ( 1212.47 ) mGycm TECHNIQUE: The examination was performed with the intravenous administration of Oral and amp; IV Gastrografin and amp; 75mL Isovue-370. Post-processing of the angiographic images was performed, with multiplanar reformation and 3D reconstruction. Individualized dose optimization techniques were used for this CT. COMPARISON: None. FINDINGS: Normal enhancement of the main pulmonary artery and right and left pulmonary arteries. Normal enhancement of the bilateral peripheral pulmonary arteries. There is no demonstrated pulmonary embolism. Normal thoracic aorta and visualized great vessels. There is no demonstrated aortic dissection. Normal heart and pericardium. Dilated esophagus filled with oral contrast. Normal mediastinum. Normal hilar regions. Normal visualized trachea and bronchi. The lungs are well expanded. Alveolar groundglass densities throughout both lungs consistent with bilateral pneumonia, pulmonary edema, or ARDS. Normal pleura. Normal chest wall structures. Normal osseous structures. Normal visualized upper abdomen. CT/CTA Chest W/WO Contrast IMPRESSION: 1. No CT evidence of pulmonary embolism. 2. Bilateral pneumonia, pulmonary edema, or ARDS predominant in the lung bases. Findings may be secondary to aspiration. 3. Dilated esophagus filled with oral contrast. Electronically Signed: Sim Cook MD at 8:03 EDT ,
[2022-04-01 05:11] LABS: Absolute Lymphocyte Count 1.07 X10^3/uL (0.83-4.51); Lymphocyte # 1.07 X10^3/ul (0.83-4.51)
--- NOTE | 2022-04-01 05:11 | CT_ITS ---
STUDY: CT ABDOMEN AND PELVIS WITH CONTRAST REASON FOR EXAM: Male, 57 years old. Abdominal pain -- IV PO Contrast. [facility] BACK SURGERY 03/28 RADIATION DOSAGE (If Supplied By Facility): CTDIvol = ( 13.76 ) mGy, DLP = ( 1212.47 ) mGycm TECHNIQUE: Transaxial images were obtained from the dome of the diaphragm to the symphysis pubis without oral contrast. Oral and amp; IV Gastrografin and amp; 75mL Isovue-370 was administered. Sagittal and coronal images were reconstructed. Individualized dose optimization techniques were used for this CT. COMPARISON: 04/01/2019 FINDINGS: Alveolar density in both lung bases consistent with bibasilar pneumonia. The visualized portions of the heart are within normal limits. Normal liver. Normal gallbladder and extrahepatic biliary system. Normal spleen. Normal pancreas. Normal bilateral adrenal glands. Normal right kidney. 3 mm nonobstructing stone lower pole the left kidney. There is a small hiatal hernia. Normal small intestine. Normal colon. The appendix is visualized and appears normal. Normal abdominal aorta. Normal inferior vena cava. Normal retroperitoneum. Normal urinary bladder. Normal abdominal wall. Status post transpedicular fixation lower lumbar spine. CT/Abdomen/Pelvis WITH Contrast IMPRESSION: 1. 3 mm nonobstructing left renal stone. 2. Bibasilar pneumonia. Electronically Signed: Sim Cook MD at 7:56 EDT ,
[2022-04-01 05:12] LABS: Platelet Estimate ADEQUATE (ADEQ); Red Cell Morphology NORM C+C NORMAL (NORM C&C)
[2022-04-01 05:41] LABS: Prothrombin Time (Protime)PT. 12.5 SECONDS (11.7-14.9)
[2022-04-01 05:42] LABS: Partial Thromboplast Time 23.8 Seconds (24.1-36.2)
--- NOTE | 2022-04-01 07:47 | ED.RN ---
ok for pt to go to pcu with ct pending per ed dr. vizcaino.
[2022-04-01] MEDS: 0.9% Normal Saline 1,000 ML 125 ML IV ×2 (10:23→21:29)
--- NOTE | 2022-04-01 11:47 | PN.HOSP_ITS ---
Documented by User: Viktoriya Mason PHARMACY ORDER ENTRY TECHNICIAN, PHARMACY ORDER ENTRY TECHNICIAN-C 04/01/22 12:08 Subjective Subjective Patient seen and examined. Intermittent cough. Denies fever. Denies abdominal pain, nausea, vomiting. Objective Data Objective Data Vital Signs: Vital Signs Temp Pulse Resp BP Pulse Ox 98.5 F 102 H 16 101/67 92 04/01/22 10:33 04/01/22 10:33 04/01/22 10:33 04/01/22 10:33 04/01/22 10:58 Oxygen Flow Rate (L/min) 4 Oxygen Delivery Method Nasal Cannula Weight: 165 lb Body Mass Index (BMI) 23.6 Intake & Output: Intake and Output for Last 24 Hours 03/30/22 03/31/22 04/01/22 23:59 23:59 23:59 Intake Total 1000 / 1000 Balance 1000 / 1000 Lab / Micro Data Result Diagrams: 04/01/22 03:50 04/01/22 03:50 Labs: Laboratory Results - last 24 hr 04/01/22 03:50: WBC 3.4 L, RBC 3.55 L, Hgb 11.5 L, Hct 35.5 L, MCV 100.0 H, MCH 32.4 H, MCHC 32.4, RDW Std Deviation 55.8 H, RDW Coeff of Real 14.8 H, Plt Count 257, MPV 9.6, Immature Gran % (Auto) PHARMACY ORDER ENTRY TECHNICIAN, Neut % (Auto) PHARMACY ORDER ENTRY TECHNICIAN, Lymph % (Auto) PHARMACY ORDER ENTRY TECHNICIAN, [place] % (Auto) PHARMACY ORDER ENTRY TECHNICIAN, Eos % (Auto) PHARMACY ORDER ENTRY TECHNICIAN, Baso % (Auto) PHARMACY ORDER ENTRY TECHNICIAN, Absolute Neuts (auto) 2.3, Absolute Lymphs (auto) 1.07, Total Counted 100, Neutrophils % (Manual) 55, Band Neutrophils % 7 H, Lymphocytes % (Manual) 31, Monocytes % (Manual) 2, Metamyelocytes % 5 H, Nucleated RBC % 0, Diff Path Review May , Platelet Estimate ADEQUATE, RBC Morphology NORM C+C 04/01/22 03:50: Sodium 137, Potassium 3.6, Chloride 99, Carbon Dioxide 34.0 H, Anion Gap 4 L, BUN 46 H, Creatinine 1.56 H, Estim Creat Clear Calc 50.37, Est GFR (MDRD) Af Amer 59 L, Est GFR (MDRD) Non-Af 49 L, BUN/Creatinine Ratio 29.5 H , Glucose 151 H, Calcium 8.8, Total Bilirubin 0.20, AST 37, ALT 43, Alkaline Phosphatase 78, Total Protein 6.5, Albumin 3.0 L, Globulin 3.5, Albumin/Globulin Ratio 0.9 04/01/22 04:12: Urine Color Yellow, Urine Clarity Clear, Urine pH 5.0, Ur Specific [place] 1.020, Urine Protein 30 H, Urine Glucose (UA) Normal, Urine Ketones Negative, Urine Occult Blood 10 H, Urine Nitrite Negative, Urine Bilirubin Negative, Urine Urobilinogen Normal, Ur Leukocyte Esterase 25 H, Urine RBC 0 SEEN, Urine WBC 0-5 SEEN, Ur Squamous Epith Cells 0 SEEN, Urine Bacteria 1+, Hyaline Casts 10-25 SEEN, Urine Mucus 0 SEEN 04/01/22 05:26: PT 12.5, INR 1.0, APTT 23.8 L Micro: Microbiology 04/01/22 03:50 Nasal Secretion SARS-CoV-2 & FLU Antigen (Rapid) - Final Radiography Diagnostic Testing: Radiology Impression Acute Abdomen Series 04/01/22 03:29 IMPRESSION: Lungs are clear. Nonspecific bowel gas pattern without overt evidence of obstruction however, possible mildly dilated loops of small bowel. Consider CT to further evaluate Electronically Signed: Jhon Asif DO at 5:05 EDT Reading Location ID and State: [facility] / [place] Tel , Service support , Chest CTA 04/01/22 05:[address]: 1[address] No [address] evidence of pulmonary embolism. 2. Bilateral pneumonia, pulmonary edema, or ARDS predominant in the lung bases. Findings may be secondary to aspiration. 3. Dilated esophagus filled with oral contrast. Electronically Signed: Sim Cook MD at 8:03 EDT , Abdomen/Pelvis CT 04/01/22 05:11 IMPRESSION: 1. 3 mm nonobstructing left renal stone. 2. Bibasilar pneumonia. Electronically Signed: Sim Cook MD at 7:56 EDT , Physical Exam Const alert and oriented x3 Orientation / Consciousness: awake, oriented to person, oriented to place and oriented to time HEENT normocephalic Mouth: dry mucous membranes Eyes PERRL, EOMs intact bilaterally and conjunctivae normal Neck no lymphadenopathy Resp clear to auscultation bilaterally Auscultation: diminished lung sounds Cardio regular rate, regular rhythm and no murmurs Peripheral Pulses: pulses 2+ throughout GI normal to inspection, nondistended, normoactive bowel sounds, non-tender and non-distended Extremity normal to inspection Skin no rashes or lesions noted Skin Narrative: Lumbar postoperative incision intact, without erythema. Lesions: no lesions Rashes: no rashes Trauma: no lacerations or abrasions Neuro CN's II-XII intact bilaterally, no focal motor deficits, no sensory deficits noted and deep tendon reflexes 2+ bilaterally Psych mental status grossly normal and affect normal Assessment & Plan Assessment/Plan (1) MARYLOU (acute kidney injury): (2) Hypoxia: (3) Ileus: PLAN: 1. Acute hypoxic respiratory failure secondary to bibasilar pneum onia, suspect aspiration pneumonia-CTA without PE. Bibasilar pneumonia. Oxygen noted to be 80% on room air on admission. Remains on 4 L nasal cannula. Continue supplemental oxygen to maintain O2 sat above 90%. IV Zosyn. Albuterol and DuoNeb aerosols. Speech therapy consult. Patient states prior to his recent lumbar spine surgery 03/28/2022, he had been having significant reflux while sleeping and would wake up coughing. Obtain sputum culture. Urine for strep and Legionella. Initiate PPI for reflux. 2. Obstipation-CT of abdomen and pelvis unremarkable. Initiate bowel regimen. Advance diet as tolerated. 3. Acute kidney injury-IV fluids, trend BMP. 4. Recent lumbar decompression 03/28/2022 at [facility]-PT/OT. Continue follow-up with primary surgeon. 5. Hypertension-hold lisinopril, HCTZ due to MARYLOU. Continue metoprolol. 6. Mild macrocytic anemia, leukopenia-trend CBC. 7. MGUS- following with Dr. Cleveland. DVT prophylaxis-Lovenox subcu This patient was seen by BUDDY Crum under the supervision of Dr. Ji. Documented by User: Dr. Francisco Ji MD 04/01/22 12:24 Objective Data Lab / Micro Data Result Diagrams: 04/01/22 03:50 04/01/22 03:50 Assessment & Plan Addt'l Comments This patient was seen in conjunction with BUDDY Crum . I have inde pendently interviewed and examined the patient and reviewed pertinent historical, laboratory, and other data. Please refer to BUDDY Crum note for details of this patient's presentation, findings, and recommendations. I have reviewed BUDDY Crum note and concur with documented findings. In brief, Patient is a 57-year-old gentleman who underwent recent back surgery (L3-L5 decompression fusion and pedicle screw fixation) at [facility] on 03/28/2022 discharged on 03/30/2022 presented to the ED with shortness of breath. CTA of the chest obtained came back negative for PE however did show dilated esophagus and bilateral infiltrates suspicious for aspiration pneumonia Physical Examination: GENERAL: cooperative HEENT: Atraumatic; EYES; Anicteric, Normal Conjunctiva NECK; supple, normal thyroid, RESPIRATORY: Diminished to auscultation CARDIOVASCULAR: Regular S1 S2, GI: Abdomen distended and tympanitic to percussion, normoactive bowel sounds, : No Renal angle tenderness; EXTREMITIES: No edema, no clubbing, MUSCULOSKELETAL: no muscle wasting NEURO: Awake; no lateralizing signs. SKIN: No Rash PSYCH; Flat affect Assessment: 1. Acute dyspnea secondary to aspiration pneumonia 2. Recent back surgery 3. History of recurrent ileus 4. Acute kidney injury 5. Hypokalemia 6. Essential hypertension 7. Monoclonal gammopathy of unknown significance 8. Anemia of chronic disorder 9. DVT prophylaxis Recommendations: 1. I have discussed the results of my overview and impressions with the patient 2. Options for management were reviewed Total time spent by myself and the advanced practice practitioner evaluating patient, reviewing labs, subsequent management decisions, discussion with patient as well as other providers 40 minutes ( 25 of which was spent by myself). Part of this time was spent evaluating patient review of diagnostic data additional therapy including initiation of antibiotics Charges/Coding Procedures Hospitalists Procedures: 54307 Prolonged InPt Service; first hour
[2022-04-01] MEDS: Gabapentin 300 MG Capsule PO ×2 (11:54→21:29)
[2022-04-01] MEDS: Enoxaparin 40 MG/0.4 ML Syringe SC (11:54)
[2022-04-01] MEDS: oxyCODONE 5 MG Tablet 10 MG PO (19:23)
[2022-04-01] MEDS: Lactulose 20 GM/30 ML UDC 10 GM PO (21:28)
[2022-04-02] VITALS (13 sets, daily range): BP systolic 123–147; BP diastolic 66–94; PULSE 73–99; RESP 16–21; TEMP 36.2–36.8; O2SAT 91–96
[2022-04-02] MEDS: 0.9% Normal Saline 1,000 ML 125 ML IV ×2 (04:49→13:43)
[2022-04-02] MEDS: Senna Tablet 1 TABLET PO (04:49)
[2022-04-02] MEDS: Lactulose 20 GM/30 ML UDC 10 GM PO ×2 (04:49→13:42)
[2022-04-02 06:07] LABS: Absolute Lymphocyte Count 0.45 X10^3/uL (0.83-4.51); Absolute Neutrophil Count 4.9 X10^3/uL (2.0-7.7); Basophil# 0.02 X10^3/uL; Basophil% 0.3 % (0-1); Eosinophil# 0.03 X10^3/uL; Eosinophils% 0.5 % (0-5); Hematocrit 27.6 % (40-54); Hemoglobin 8.8 g/dL (13.0-16.5); Lymphocyte # 0.45 X10^3/ul (0.83-4.51); Lymphocyte % 7.4 % (19-41); Mean Corp Hgb Conc 31.9 g/dL (32-36); Mean Corpuscular Hgb 32.4 pg (27.0-32.0); Mean Corpuscular Volume 101.5 fL (80-94); Mean Platelet Vol. 9.8 fl (6.2-12.0); Monocyte# 0.63 X10^3/uL; Monocyte% 10.3 % (0-10); NRBC Flagged by Analyzer 0 % (0-5); Neutrophil # 4.93 X10^3/uL (2.7-7.7); Neutrophil % 80.5 % (47-70); POSITIVE DIFFERENTIAL YES; POSITIVE MORPHOLOGY YES; Platelet Count 224 K/mm3 (150-450); RBC Distribution Width CV 15.1 % (11.6-14.6); RBC Distribution Width SD 56.2 fl (35.1-43.9); Red Blood Count 2.72 M/mm3 (4.6-6.2); White Blood Count 6.1 K/mm3 (4.4-11.0)
[2022-04-02 06:14] LABS: Differential Indicated SCAN CRITERIA MET
[2022-04-02 06:51] LABS: ALB/GLOB Ratio 0.7 RATIO (0.9-2.4); AST(SGOT) 35 U/L (15-37); Alanine Aminotransfer ALT/SGPT 50 U/L (16-61); Albumin, Serum 2.3 g/dL (3.2-5.0); Alkaline Phosphatase 61 U/L (45-117); Anion Gap 3 (5-15); BUN 25 mg/dL (7-18); BUN/Creat Ratio 27.7 RATIO (10-20); Chloride 105 mmol/L (98-107); EST Glomerular Filtration Rate 92 mL/min (>60); Est Glom Filt Rate - Afr Amer 111 mL/min (>60); Estimated Creatinine Clearance 91.25 ml/min; Globulin 3.2 g/dL (2.2-4.2); Glucose 129 mg/dL (74-106); Magnesium 2.6 mg/dL (1.6-2.6); Potassium 4.1 mmol/L (3.5-5.1); Protein, Total 5.5 g/dL (6.4-8.2); Sodium Level 142 mmol/L (136-145)
[2022-04-02 07:04] LABS: Anisocytosis 2+; Macrocytosis 2+
[2022-04-02 07:08] LABS: Atypical Lymphocyte 1+ %
[2022-04-02 07:26] LABS: Hemoglobin A1c 5.7 % (3.8-5.6)
[2022-04-02] MEDS: Pantoprazole Sodium 40 MG Tablet PO (08:46)
[2022-04-02] MEDS: Gabapentin 300 MG Capsule PO ×2 (08:47→22:18)
[2022-04-02] MEDS: Enoxaparin 40 MG/0.4 ML Syringe SC (08:47)
[2022-04-02] MEDS: Cholecalciferol (Vit D3) 125 MCG CAPSULE (5,000 UNITS) PO (08:47)
--- NOTE | 2022-04-02 10:25 | CASEMGMT ---
BIANCA YI assessment: Face to Face with patient for initial transition planning/care coordination assessment. BIANCA YI introduced self and role at [facility], pt voices understanding and consents to assessment. Pt is sitting up in chair in no distress on room air. Pt is A/Ox4 and answers all questions appropriately. Pt's is at bedside during assessment. Care providers, pharmacy, and demographics verified. Presentation: S/P back surgery, c/o SOB, hypoxia Admitting dx: Acute hypoxia, MARYLOU, ileus PCP: Davian Specialists: Rea, neurosurg; Jeff, cardio; Friend, GI Preferred Pharmacy: [facility] Insurance: [employer] Prescription Benefit: [employer] Living Will/HPOA: Pt has LW/HPOA and is aware that they are not on file at [facility]. Pt states his , Stacey Handley, is HPOA. LNOK: Stacey Handley, /HPOA Living Arrangements: Pt lives with in 2 story home and states no concerns at home. Pt is independent with ADL's. Transportation: Pt drives self and states no transportation concerns. 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 Pt states no need for any further DME. Pt states no hx of SNF but was set up with [facility] for PT/OT s/p surgery and they did come out to do SOC. ASHLEE order placed and clinicals faxed with ASHLEE order to [facility]. Pt/ state no concerns with pt going home at time of discharge. Pt is currently on short term disability. Pt does not smoke cigarettes or drink ETOH. Pt voices no further concerns/needs. CM to follow for any further discharge planning/needs. Advised pt to ask for CM if any further questions/concerns/needs arise, voices understanding. Pt Goal: Home Plan: Home w/ [facility] [place] BIANCA YI
[2022-04-02] MEDS: Ipratropium/Albuterol Sulfate 3 ML AMPUL.NEB INHALATION ×2 (11:17→20:01)
[2022-04-02 13:38] LABS: Pathologist Review Reviewed
[2022-04-02] MEDS: Magnesium Citrate 300 ML 150 ML PO (13:42)
--- NOTE | 2022-04-02 14:14 | PCM.PN.HOSP ---
Documented by User: Viktoriya Mason NP, MANAGER CLINICAL RESEARCH-C 04/02/22 14:30 Subjective Subjective Patient seen and examined. Reports few small stools, abdomen remains distended. Denies abdominal pain. Denies nausea, vomiting. Oxygen stable on room air. Denies shortness of breath. Objective Data Objective Data Vital Signs: Vital Signs Temp Pulse Resp BP Pulse Ox 98.3 F 99 21 H 126/79 H 91 04/02/22 09:00 04/02/22 11:30 04/02/22 11:30 04/02/22 09:00 04/02/22 09:01 Oxygen Flow Rate (L/min) 2 Oxygen Delivery Method Room Air Weight: 165 lb 12.602 oz Body Mass Index (BMI) 23.6 Intake & Output: Intake and Output for Last 24 Hours 03/31/22 04/01/22 04/02/22 23:59 23:59 23:59 Intake Total 2434.16 / 2434.16 2511.25 / 2511.25 Balance 2434.16 / 2434.16 2511.25 / 2511.25 Lab / Micro Data Result Diagrams: 04/02/22 05:20 04/02/22 05:20 Labs: Laboratory Results - last 24 hr 04/01/22 03:50: Diff Path Review Reviewed 04/02/22 05:20: WBC 6.1, RBC 2.72 L, Hgb 8.8 L, Hct 27.6 L, MCV 101.5 H, MCH 32.4 H, MCHC 31.9 L, RDW Std Deviation 56.2 H, RDW Coeff of Real 15.1 H, Plt Count 224, MPV 9.8, Immature Gran % (Auto) 1.000 H, Neut % (Auto) 80.5 H, Lymph % (Auto) 7.4 L, [place] % (Auto) 10.3 H, Eos % (Auto) 0.5, Baso % (Auto) 0.3, Absolute Neuts (auto) 4.9, Absolute Lymphs (auto) 0.45 L, Nucleated RBC % 0, Atypical Lymphocytes 1+, Anisocytosis 2+, Macrocytosis 2+ 04/02/22 05:20: Sodium 142, Potassium 4.1, Chloride 105, Carbon Dioxide 34.0 H, Anion Gap 3 L, BUN 25 H, Creatinine 0.90, Estim Creat Clear Calc 91.25, Est GFR (MDRD) Af Amer 111, Est GFR (MDRD) Non-Af 92, BUN/Creatinine Ratio 27.7 H, Glucose 129 H, Calcium 8.0 L, Magnesium 2.6, Total Bilirubin 0.30, AST 35, ALT 50, Alkaline Phosphatase 61, Total Protein 5.5 L, Albumin 2.3 L, Globulin 3.2, Albumin/Globulin Ratio 0.7 L 04/02/22 05:20: Hemoglobin A1c 5.7 H Micro: Microbiology 04/01/22 19:55 Sputum, Expectorated/Coughed Gram Stain - Final 04/01/22 14:25 Urine, Clean Catch Legionella Antigen - Final 04/01/22 14:25 Urine, Clean Catch Streptococcus pneumoniae Antigen (M - Final 04/01/22 03:50 Nasal Secretion SARS-CoV-2 & FLU Antigen (Rapid) - Final Physical Exam Const alert and oriented x3 Orientation / Consciousness: awake, oriented to person, oriented to place and oriented to time HEENT normocephalic and moist oral mucous membranes Eyes PERRL, EOMs intact bilaterally and conjunctivae normal Neck no lymphadenopathy Resp clear to auscultation bilaterally Auscultation: diminished lung sounds Cardio regular rate, regular rhythm and no murmurs Peripheral Pulses: pulses 2+ throughout GI normal to inspection, nondistended, normoactive bowel sounds and non-tender Inspection: abdominal distention Extremity normal to inspection Skin no rashes or lesions noted Lesions: no lesions Rashes: no rashes Trauma: no lacerations or abrasions Neuro CN's II-XII intact bilaterally, no focal motor deficits, no sensory deficits noted and deep tendon reflexes 2+ bilaterally Psych mental status grossly normal and affect normal Assessment & Plan Assessment/Plan (1) MARYLOU (acute kidney injury): (2) Hypoxia: PLAN: 1. Acute hypoxic respiratory failure secondary to bibasilar pneumonia, suspect aspiration pneumonia-CTA without PE. Bibasilar pneumonia. Oxygen noted to be 80% on room air on admission. Weaned off of supplemental oxygen, oxygen now stable on room air. Walking pulse ox prior to discharge. Transition to Augmentin. Albuterol and DuoNeb aerosols. Speech therapy consulted. Patient states prior to his recent lumbar spine surgery 03/28/2022, he had been having significant reflux while sleeping and would wake up coughing. Initiated on PPI for reflux. 2. History of recurrent ileus/dilated esophagus/Obstipation-CT of abdomen and pelvis unremarkable. Chest CTA noted dilated esophagus. Continue bowel regimen. GI consult. 3. Acute kidney injury-resolved with IV fluids. Patient report poor oral intake due to constipation/bowel issues. 4. Recent lumbar decompression 03/28/2022 at [facility]-PT/OT. Continue follow-up with primary surgeon. 5. Hypertension-hold lisinopril, HCTZ due to MARYLOU. Continue metoprolol. 6. Macrocytic anemia-suspect reduced due to hemodilution. Previous B12/folate/iron studies appear normal. Trend CBC. 7. MGUS/m-spike- following with Dr. Cleveland. 8. Aww-bzjlsasp-jbwhdjjtgr A1c 5.7%. Encouraged dietary modifications. DVT prophylaxis-Lovenox subcu This patient was seen by BUDDY Crum under the supervision of Dr. Ba. Time spent examining patient, reviewing data and subsequent management of care: 17 minutes Documented by User: Dr. Malik Ba MD 04/02/22 17:24 Objective Data Lab / Micro Data Result Diagrams: 04/02/22 05:20 04/02/22 05:20 Charges/Coding Addendum Addendum: Dr. Ba: I personally reviewed the chart and examined the patient, and agree with the above findings. 57 yo M with aspiration pneumonia. this is resolving and he no longer requires O2. States he was having nocturnal regurg for about a month, started on PPI and will consult GI since he has also been having issues with ileus and a dilated esophagus was noted on CTA of the chest during his eval for pneumonia. He does not want any invasive procedure at this time since he just had back surgery last week, the ileus and BM issues have been going on for 3 years. Visit Charges Inpatient E&M: 09907 Subs Hosp L2
--- NOTE | 2022-04-02 20:00 | CON.PCM_ITS ---
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 He is not seen other than cyclobenzaprine. Hydrocodone that may contribute to this systemic evaluation of the GI tract. Achalasia in the setting of chronic intestinal pseudoobstruction is not very common. However there is no underlying commonality of the 2 disorders of his a possible singular disease process affecting the mesenteric proximal stomach and my enteric plexus. This should undergo evaluation. He did not seem to be in severe discomfort that that would make me think that he may be risk for perforation but it is a possibility due to worsening distention of his GI tract. Again he iterates that he does not any further work-up regarding his GI tract at this time and would rather do it as an outpatient. (2) Dilatation of esophagus: PLAN: The differential diagnosis for the dilation of the esophageal spasm achalasia, inappropriate esophageal dysmotility, esophageal stricture. Patient at this time does not want to undergo endoscopic evaluation at this time. Prolonged conversation with him his at the bedside explaining that he is high risk for aspiration pneumonia and should get an endoscopic evaluation for mucosal disease, utility disorder and acquired abnormality patient says he would like to get the work-up done as an outpatient. HPI Consult Data Date of Consult: 04/03/22 HPI Narrative HPI Narrative: AUGUSTUS LIND, is a 57 M who presents with past medical history of MGUS, purpura simplex, hypertension, chronic back pain secondary to herniated disks. He recently underwent L3 decompression with fusion on 03/30/2022. He presented to the emergency room with worsening cough and feeling as if something was stuck in his chest. He had a chest x-ray which that showed possible bilateral pneumonia secondary to aspiration. He had been constipated as per him and his so he had taken the magnesium citrate at home. He has been struggling with bloating for accident a couple years. He underwent an upper and lower endoscopy and he was told that everything was normal. He complains of mostly bloating, gas and abdominal distention. CT scan of the chest that showed a dilated esophagus. It was negative for pulmonary embolism and did show bilateral pneumonia likely secondary to aspiration pneumonia. The patient reported symptoms of post-prandial reflux, nausea, vomiting, and dysphagia. Computed tomography (CT) of the abdomen showed dilation of the distal thoracic esophagus and retention of oral contrast with narrowing of the gastr oesophageal junction. Other findings included chronically dilated small bowel to the level of the terminal ileum, consistent with prior imaging. [facility] Medical History Essential (primary) hypertension MGUS (monoclonal gammopathy of unknown significance) Purpura Home Medications hydrochlorothiazide 25 mg tablet 25 mg PO DAILY #90 tab 12/15/21 [Rx Last Taken Unknown] lisinopril 20 mg tablet 20 mg PO BID #180 tab 12/15/21 [Rx Last Taken Unknown] metoprolol succinate 50 mg tablet,extended release 24 hr 50 mg PO DAILY #90 tab 12/15/21 [Rx Last Taken Unknown] cholecalciferol (vitamin D3) [Vitamin D3] 5,000 unit PO DAILY 04/01/22 [History Last Taken Unknown] cyclobenzaprine 10 mg PO TID PRN 04/01/22 [History Last Taken Unknown] gabapentin [Neurontin] 300 mg PO BID 04/01/22 [History Last Taken Unknown] oxycodone 10 mg PO Q6H PRN PRN 04/01/22 [History Last Taken Unknown] Allergy/AdvReac Type Severity Reaction Status Date / Time No Known Allergies Allergy Verified 04/01/22 03:02 Family History Mother Hypertension Diabetes Father Arthritis Sister Diabetes Surgical History History of back surgery History of tonsillectomy history tendon repair right arm Social History household members: spouse Smoking Status: Never smoker alcohol intake: current alcohol intake frequency: a few times a month substance use type: does not use ROS Gastrointestinal Gastrointestinal: Reports abdominal pain, dysphagia, early satiety and heartburn Physical Exam Const alert General Appearance: cooperative Orientation / Consciousness: oriented to person HEENT hearing grossly normal bilaterally Head and Scalp: normal to inspection Face and Sinus: face symmetric Nose: external nose normal Mouth: oral and palatal mucosa normal Eyes conjunctivae normal General Eye: normal appearance of both eyes Neck full ROM General: normal visual inspection Lymph Lymphatic: no lymphadenopathy noted Chest inspection of chest normal and palpation of chest normal Chest: symmetrical chest wall rise Resp normal respiratory effort Effort and Inspection: able to speak in complete sentences Cardio regular rate GI non-distended Percussion: normal to percussion Rectal Exam: deferred Neuro Speech: speech normal Gait (Neuro): normal gait Lab / Micro Data Result Diagrams: 04/03/22 05:16 04/03/22 05:16 Labs: Laboratory Results - last 24 hr 04/01/22 03:50: Diff Path Review Reviewed 04/03/22 05:16: WBC 6.3, RBC 2.89 L, Hgb 9.0 L, Hct 29.0 L, MCV 100.3 H, MCH 31.1, MCHC 31.0 L, RDW Std Deviation 54.7 H, RDW Coeff of Real 15.0 H, Plt Count 237, MPV 9.4, Immature Gran % (Auto) 1.300 H, Neut % (Auto) 75.2 H, Lymph % (Auto) 12.3 L, [place] % (Auto) 9.7, Eos % (Auto) 1.3, Baso % (Auto) 0.2, Absolute Neuts (auto) 4.7, Absolute Lymphs (auto) 0.77 L, Nucleated RBC % 0 04/03/22 05:16: Sodium 143, Potassium 3.7, Chloride 109 H, Carbon Dioxide 32.0, Anion Gap 2 L, BUN 17, Creatinine 0.80, Estim Creat Clear Calc 102.66, Est GFR (MDRD) Af Amer 126, Est GFR (MDRD) Non-Af 104, BUN/Creatinine Ratio 21.1 H, Glucose 97, Calcium 8.3 L Micro: Microbiology 04/02/22 18:20 Stool Stool Occult Blood (ALEX) - Final 04/01/22 19:55 Sputum, Expectorated/Coughed Gram Stain - Final Charges/Coding Visit Charges Inpatient E&M: 16698 Init Hosp L3
[2022-04-02] MEDS: 0.9% Saline Lock 10 ML Syringe IV (22:18)
[2022-04-02] MEDS: oxyCODONE 5 MG Tablet 10 MG PO (22:26)
[2022-04-03] VITALS (8 sets, daily range): BP systolic 140–154; BP diastolic 79–97; PULSE 67–81; RESP 16–18; TEMP 36.4–36.8; O2SAT 92–97
[2022-04-03 05:41] LABS: Absolute Lymphocyte Count 0.77 X10^3/uL (0.83-4.51); Absolute Neutrophil Count 4.7 X10^3/uL (2.0-7.7); Basophil# 0.01 X10^3/uL; Basophil% 0.2 % (0-1); Eosinophil# 0.08 X10^3/uL; Eosinophils% 1.3 % (0-5); Lymphocyte # 0.77 X10^3/ul (0.83-4.51); Lymphocyte % 12.3 % (19-41); Mean Corpuscular Hgb 31.1 pg (27.0-32.0); Mean Corpuscular Volume 100.3 fL (80-94); Mean Platelet Vol. 9.4 fl (6.2-12.0); Monocyte# 0.61 X10^3/uL; Monocyte% 9.7 % (0-10); NRBC Flagged by Analyzer 0 % (0-5); Neutrophil # 4.73 X10^3/uL (2.7-7.7); Neutrophil % 75.2 % (47-70); Platelet Count 237 K/mm3 (150-450); RBC Distribution Width SD 54.7 fl (35.1-43.9); Red Blood Count 2.89 M/mm3 (4.6-6.2); White Blood Count 6.3 K/mm3 (4.4-11.0)
[2022-04-03 06:02] LABS: Anion Gap 2 (5-15); BUN 17 mg/dL (7-18); BUN/Creat Ratio 21.1 RATIO (10-20); Calcium,Total 8.3 mg/dL (8.5-10.1); Chloride 109 mmol/L (98-107); EST Glomerular Filtration Rate 104 mL/min (>60); Est Glom Filt Rate - Afr Amer 126 mL/min (>60); Estimated Creatinine Clearance 102.66 ml/min; Glucose 97 mg/dL (74-106); Potassium 3.7 mmol/L (3.5-5.1); Sodium Level 143 mmol/L (136-145)
[2022-04-03] MEDS: Ipratropium/Albuterol Sulfate 3 ML AMPUL.NEB INHALATION (06:47)
[2022-04-03] MEDS: Pantoprazole Sodium 40 MG Tablet PO (09:03)
[2022-04-03] MEDS: Gabapentin 300 MG Capsule PO (09:03)
[2022-04-03] MEDS: Metoprolol(XL)Succ 50 MG Tablet PO (09:03)
[2022-04-03] MEDS: Enoxaparin 40 MG/0.4 ML Syringe SC (09:04)
[2022-04-03] MEDS: Acetaminophen 325 MG Tablet 650 MG PO (09:39)
[2022-04-03] MEDS: Cholecalciferol (Vit D3) 125 MCG CAPSULE (5,000 UNITS) PO (09:51)
--- NOTE | 2022-04-03 10:04 | PCM.DC ---
Discharge Instructions Diet Discharge Diet: Light diet - advance as tolerated Activity Discharge Activity: Return to Normal Activity Dressing / Incision Call your doctor if you observe: Inability to have a bowel movement, Shortness of breath, Dizziness and Chest pain Follow Up Care Test Results: Test results from this visit will be discussed in further detail at your follow-up appointment, if applicable. Discharge Plan Admission Admit Date/Time: 04/01/22 05:06 Primary Reason for Your Visit: Pneumonia, constipation Attending Provider: Malik Ba Primary Care Provider: Aleida Marcelo Consulting Providers: Irma Menendez ; Francisco Ji ; Carlos Varghese Instructions Additional Instructions / Restrictions: Continue follow up with spine surgery as scheduled. Discharge Orders/Prescriptions Prescriptions: New pantoprazole 40 mg Tablet,Delayed Release (Dr/Ec) 40 mg PO DAILY 30 Days Qty: 30 RF: 0 amoxicillin-pot clavulanate 875-125 mg tablet 1 tab PO BID Qty: 10 RF: 0 polyethylene glycol 3350 [Miralax] 17 gram powder in packet 17 g PO DAILY Qty: 30 RF: 0 Continued hydrochlorothiazide 25 mg tablet 25 mg PO DAILY Qty: 90 RF: 3 lisinopril 20 mg tablet 20 mg PO BID Qty: 180 RF: 3 metoprolol succinate [Toprol XL] 50 mg tablet extended release 24 hr 50 mg PO DAILY Qty: 90 RF: 3 gabapentin [Neurontin] 300 mg capsule 300 mg PO BID RF: 0 cyclobenzaprine 10 mg tablet 10 mg PO TID PRN (Reason: Back Pain) RF: 0 oxycodone 10 mg tablet 10 mg PO Q6H PRN PRN (Reason: Back Pain) RF: 0 cholecalciferol (vitamin D3) [Vitamin D3] 125 mcg (5,000 unit) Tablet 5,000 unit PO DAILY RF: 0 Referrals / Follow Up: Aleida Marcelo DO [Primary Care Provider] - In 1 Week Carlos Varghese DO [STAFF PHYSICIAN] - In 1 Week Disposition Disposition (needs filled in before D/C Order can be placed): Home Health Service
--- NOTE | 2022-04-03 10:18 | PCM.DC.SUM ---
Documented by User: Viktoriya Mason NP, CUSTOMER OPERATIONS INTERN-C 04/03/22 10:36 Providers Date of Admission: 04/01/22 Date of Discharge: 04/03/22 Primary Care Physician: Dr. Aleida Marcelo, Consultations 04/02/22 14:13 Consult: Gastroenterology Routine Consulting Provider: Carlos Varghese Reason for Consult: Recurrent ileus, dilated espophagus, obstipation EMERGENT Consult: No MD Notified: Yes Date Notified: 04/02/22 Time Notified: 14:13 Method of Notification: Text Reason For Visit: ACUTE HYPOXIA, MARYLOU, ILEUS Diagnosis Discharge Diagnosis (1) Ileus: Status: Acute Code(s): K56.7 - Ileus, unspecified (2) Dilatation of esophagus: Status: Acute Code(s): K22.89 - Other specified disease of esophagus Medications at Discharge Home Medications hydrochlorothiazide 25 mg tablet 25 mg PO DAILY #90 tab 12/15/21 lisinopril 20 mg tablet 20 mg PO BID #180 tab 12/15/21 metoprolol succinate 50 mg tablet,extended release 24 hr 50 mg PO DAILY #90 tab 12/15/21 cholecalciferol (vitamin D3) [Vitamin D3] 5,000 unit PO DAILY 04/01/22 cyclobenzaprine 10 mg PO TID PRN 04/01/22 gabapentin [Neurontin] 300 mg PO BID 04/01/22 oxycodone 10 mg PO Q6H PRN PRN 04/01/22 amoxicillin-pot clavulanate 1 tab PO BID #10 tab 04/03/22 pantoprazole 40 mg PO DAILY 30 Days #30 tab 04/03/22 polyethylene glycol 3350 [Miralax] 17 g PO DAILY #30 ea 04/03/22 Hospital Course Operations None Procedures None Summary of Care Provided Hospital Course: Patient is a 57 year old male admitted 04/01/22 due to dyspnea, hypoxia, constipation. 1. Acute hypoxic respiratory failure secondary to bibasilar pneumonia, suspect aspiration pneumonia-CTA without PE. Bibasilar pneumonia. Oxygen noted to be 80% on room air on admission. Weaned off of supplemental oxygen, oxygen now stable on room air. Transition to Augmentin at discharge t to complete course. Speech therapy consulted during admission. Patient states prior to his recent lumbar spine surgery 03/28/2022, he had been having significant reflux while sleeping and would wake up coughing. Initiated on PPI for reflux. Follow up with PCP in one week. 2. History of recurrent ileus/dilated esophagus/Obstipation-CT of abdomen and pelvis unremarkable per report. Chest CTA noted dilated esophagus. GI consulted during admission. 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 Dilated esophagus etiology differentials per GI include esophageal spasm achalasia, inappropriate esophageal dysmotility, esophageal stricture. Patient requested further work-up be completed as an outpatient. Follow-up with GI for ongoing evaluation and management. Continue bowel regimen at discharge. 3. Acute kidney injury-resolved with IV fluids. Patient reports poor oral intake due to constipation/bowel issues. 4. Recent lumbar decompression 03/28/2022 at [facility]- Continue follow-up with primary surgeon. Continue home PT/OT. 5. Hypertension-stable, continue home regimen. 6. Macrocytic anemia-suspect reduced due to hemodilution. Previous B12/folate/iron studies appear normal. Hgb trended up following discontinuation of fluids. 7. MGUS/m-spike- following with Dr. Cleveland. 8. Cdj-kxigggyx-vfeuczqggg A1c 5.7%. Encouraged dietary modifications. Physical Exam Const alert and oriented x3 Orientation / Consciousness: awake, oriented to person, oriented to place and oriented to time HEENT normocephalic and moist oral mucous membranes Eyes PERRL, EOMs intact bilaterally and conjunctivae normal Neck no lymphadenopathy Resp clear to auscultation bilaterally Auscultation: diminished lung sounds Cardio regular rate, regular rhythm and no murmurs Peripheral Pulses: pulses 2+ throughout GI normal to inspection, nondistended, normoactive bowel sounds and non-tender Inspection: abdominal distention improved from prior Extremity normal to inspection Skin no rashes or lesions noted Lesions: no lesions Rashes: no rashes Trauma: no lacerations or abrasions Neuro CN's II-XII intact bilaterally, no focal motor deficits, no sensory deficits noted and deep tendon reflexes 2+ bilaterally Psych mental status grossly normal and affect normal This patient was seen by BUDDY Crum under the supervision of Dr. Ba. Time spent examining patient, reviewing data and subsequent management of care: 23 minutes Weight / BMI Weight Weight: 168 lb 6.931 oz Body Mass Index (BMI) 23.6 ABG / Lab / Microbiology Data Result Diagrams: 04/03/22 05:16 04/03/22 05:16 Laboratory: Laboratory Results - last 24 hr 04/01/22 03:50: Diff Path Review Reviewed 04/03/22 05:16: WBC 6.3, RBC 2.89 L, Hgb 9.0 L, Hct 29.0 L, MCV 100.3 H, MCH 31.1, MCHC 31.0 L, RDW Std Deviation 54.7 H, RDW Coeff of Real 15.0 H, Plt Count 237, MPV 9.4, Immature Gran % (Auto) 1.300 H, Neut % (Auto) 75.2 H, Lymph % (Auto) 12.3 L, Stanly % (Auto) 9.7, Eos % (Auto) 1.3, Baso % (Auto) 0.2, Absolute Neuts (auto) 4.7, Absolute Lymphs (auto) 0.77 L, Nucleated RBC % 0 04/03/22 05:16: Sodium 143, Potassium 3.7, Chloride 109 H, Carbon Dioxide 32.0, Anion Gap 2 L, BUN 17, Creatinine 0.80, Estim Creat Clear Calc 102.66, Est GFR (MDRD) Af Amer 126, Est GFR (MDRD) Non-Af 104, BUN/Creatinine Ratio 21.1 H, Glucose 97, Calcium 8.3 L Microbiology: Microbiology 04/01/22 19:55 Sputum, Expectorated/Coughed Gram Stain - Final 04/01/22 19:55 Sputum, Expectorated/Coughed Respiratory Culture - Preliminary Appears to be normal respiratory tiffany. Further studies to follow. 04/02/22 18:20 Stool Stool Occult Blood (ALEX) - Final 04/01/22 14:25 Urine, Clean Catch Legionella Antigen - Final 04/01/22 14:25 Urine, Clean Catch Streptococcus pneumoniae Antigen (M - Final 04/01/22 03:50 Nasal Secretion SARS-CoV-2 & FLU Antigen (Rapid) - Final D/C Instructions Discharge Diet: Light diet - advance as tolerated Call your doctor if you observe: Inability to have a bowel movement, Shortness of breath, Dizziness and Chest pain Meaningful Use Info Meaningful Use Diagnoses (Choose all that apply): None applicable Discharge Plan Admission Admit Date/Time: 04/01/22 05:06 Primary Reason for Your Visit: Pneumonia, constipation Attending Provider: Malik Ba Primary Care Provider: Aleida Marcelo Consulting Providers: Irma Menendez ; Francisco Ji ; Cralos Varghese Instructions Additional Instructions / Restrictions: Continue follow up with spine surgery as scheduled. Discharge Orders/Prescriptions Prescriptions: New pantoprazole 40 mg Tablet,Delayed Release (Dr/Ec) 40 mg PO DAILY 30 Days Qty: 30 RF: 0 amoxicillin-pot clavulanate 875-125 mg tablet 1 tab PO BID Qty: 10 RF: 0 polyethylene glycol 3350 [Miralax] 17 gram powder in packet 17 g PO DAILY Qty: 30 RF: 0 Continued hydrochlorothiazide 25 mg tablet 25 mg PO DAILY Qty: 90 RF: 3 lisinopril 20 mg tablet 20 mg PO BID Qty: 180 RF: 3 metoprolol succinate [Toprol XL] 50 mg tablet extended release 24 hr 50 mg PO DAILY Qty: 90 RF: 3 gabapentin [Neurontin] 300 mg capsule 300 mg PO BID RF: 0 cyclobenzaprine 10 mg tablet 10 mg PO TID PRN (Reason: Back Pain) RF: 0 oxycodone 10 mg tablet 10 mg PO Q6H PRN PRN (Reason: Back Pain) RF: 0 cholecalciferol (vitamin D3) [Vitamin D3] 125 mcg (5,000 unit) Tablet 5,000 unit PO DAILY RF: 0 Referrals / Follow Up: Aleida Marcelo DO [Primary Care Provider] - In 1 Week Carlos Varghese DO [STAFF PHYSICIAN] - In 1 Week Disposition Disposition (needs filled in before D/C Order can be placed): Home Health Service Documented by User: Dr. Malik Ba MD 04/03/22 15:32 Providers Date of Admission: 04/01/22 Reason For Visit: ACUTE HYPOXIA, MARYLOU, ILEUS Medications at Discharge Home Medications hydrochlorothiazide 25 mg tablet 25 mg PO DAILY #90 tab 12/15/21 lisinopril 20 mg tablet 20 mg PO BID #180 tab 12/15/21 metoprolol succinate 50 mg tablet,extended release 24 hr 50 mg PO DAILY #90 tab 12/15/21 cholecalciferol (vitamin D3) [Vitamin D3] 5,000 unit PO DAILY 04/01/22 cyclobenzaprine 10 mg PO TID PRN 04/01/22 gabapentin [Neurontin] 300 mg PO BID 04/01/22 oxycodone 10 mg PO Q6H PRN PRN 04/01/22 amoxicillin-pot clavulanate 1 tab PO BID #10 tab 04/03/22 pantoprazole 40 mg PO DAILY 30 Days #30 tab 04/03/22 polyethylene glycol 3350 [Miralax] 17 g PO DAILY #30 ea 04/03/22 ABG / Lab / Microbiology Data Result Diagrams: 04/03/22 05:16 04/03/22 05:16 Discharge Plan Admission Admit Date/Time: 04/01/22 05:06 Primary Reason for Your Visit: Pneumonia, constipation Attending Provider: Malik Ba Primary Care Provider: Aleida Marcelo Consulting Providers: Irma Menendez ; Francisco Ji ; Carlos Varghese Instructions Additional Instructions / Restrictions: Continue follow up with spine surgery as scheduled. Discharge Orders/Prescriptions Prescriptions: New pantoprazole 40 mg Tablet,Delayed Release (Dr/Ec) 40 mg PO DAILY 30 Days Qty: 30 RF: 0 amoxicillin-pot clavulanate 875-125 mg tablet 1 tab PO BID Qty: 10 RF: 0 polyethylene glycol 3350 [Miralax] 17 gram powder in packet 17 g PO DAILY Qty: 30 RF: 0 Continued hydrochlorothiazide 25 mg tablet 25 mg PO DAILY Qty: 90 RF: 3 lisinopril 20 mg tablet 20 mg PO BID Qty: 180 RF: 3 metoprolol succinate [Toprol XL] 50 mg tablet extended release 24 hr 50 mg PO DAILY Qty: 90 RF: 3 gabapentin [Neurontin] 300 mg capsule 300 mg PO BID RF: 0 cyclobenzaprine 10 mg tablet 10 mg PO TID PRN (Reason: Back Pain) RF: 0 oxycodone 10 mg tablet 10 mg PO Q6H PRN PRN (Reason: Back Pain) RF: 0 cholecalciferol (vitamin D3) [Vitamin D3] 125 mcg (5,000 unit) Tablet 5,000 unit PO DAILY RF: 0 Referrals / Follow Up: Aleida Marcelo DO [Primary Care Provider] - In 1 Week Friend,DO Carlos [STAFF PHYSICIAN] - In 1 Week Disposition Disposition (needs filled in before D/C Order can be placed): Home Health Service Charges/Coding Addendum Addendum: Dr. Ba: I personally reviewed the chart and examined the patient, and agree with the above findings. 57 yo M with aspiration pneumonia. this is resolving and he no longer requires O2. States he was having nocturnal regurg for about a month, started on PPI and will consult GI since he has also been having issues with ileus and a dilated esophagus was noted on CTA of the chest during his eval for pneumonia. He does not want any invasive procedure at this time since he just had back surgery last week, the ileus and BM issues have been going on for 3 years. 04/03/2022: Had significant issues with constipation so he stayed an extra night to try to get this to resolve. This morning he states he had multiple bowel movements. He did meet with gastroenterology who would do want to follow him up as an outpatient. We will continue with his p.o. antibiotics for his possible aspiration pneumonia on discharge. I discussed with him the plan for discharge today hairsprays understanding of the risks and benefits of going home and would like to go home today. We will continue with his antibiotics as well as a PPI prescription given his nocturnal reflux. Outpatient follow-up with his PCP and gastroenterology. Visit Charges Inpatient E&M: 23950 Disch Hosp
--- NOTE | 2022-04-03 10:56 | CASEMGMT ---
D/C summary/instructions fax[facility] and call to notify [facility] of pt discharge. Mary VALENZUELA CM
--- NOTE | 2022-04-03 11:05 | PHA.DC.MC ---
Pharmacy Service has performed discharge medication reconciliation and counseling for this patient. 1. AUGMENTIN 875/125MG PO BID X 5 DAYS 2. PANTOPRAZOLE 40MG PO DAILY 3. POLYETHYLENE GLYCOL 17GM PO DAILY The patient's discharge medication list was reviewed for discrepancies and discrepancies were resolved. Home Medications hydrochlorothiazide 25 mg tablet 25 mg PO DAILY #90 tab 12/15/21 lisinopril 20 mg tablet 20 mg PO BID #180 tab 12/15/21 metoprolol succinate 50 mg tablet,extended release 24 hr 50 mg PO DAILY #90 tab 12/15/21 cholecalciferol (vitamin D3) [Vitamin D3] 5,000 unit PO DAILY 04/01/22 cyclobenzaprine 10 mg PO TID PRN 04/01/22 gabapentin [Neurontin] 300 mg PO BID 04/01/22 oxycodone 10 mg PO Q6H PRN PRN 04/01/22 amoxicillin-pot clavulanate 1 tab PO BID #10 tab 04/03/22 pantoprazole 40 mg PO DAILY 30 Days #30 tab 04/03/22 polyethylene glycol 3350 [Miralax] 17 g PO DAILY #30 ea 04/03/22 The patient was counseled on the following discharge medications and changes in medications for homegoing were reviewed. The Reason for Use, instructions for use, and potential side effects were reviewed for all new medications. The patient's questions regarding all of their medications were answered. The patient was able to verbally demonstrate an understanding of their discharge medications.
== END 2022-04-03 11:16 | disposition home health service (06) | DRG 177 ==
LOC: ED 04:47 → PCU 05:23
PROVIDERS: Nurse Practitioner Family; Admitting Provider Family Medicine; Emergency Provider Emergency Medicine; PCP Internal Medicine; Referring Provider Family Medicine; Visit Provider Family Medicine
DX: J69.0 Pneumonitis due to inhalation of food and vomit (principal); J96.01 Acute respiratory failure with hypoxia; N17.9 Acute kidney failure, unspecified; K56.7 Ileus, unspecified; D69.2 Other nonthrombocytopenic purpura; I10 Essential (primary) hypertension; D47.2 Monoclonal gammopathy; D53.9 Nutritional anemia, unspecified; K21.9 Gastro-esophageal reflux disease without esophagitis; K59.00 Constipation, unspecified; K22.89 Other specified disease of esophagus; G89.29 Other chronic pain; R73.03 Prediabetes; Z98.1 Arthrodesis status; Z79.899 Other long term (current) drug therapy
CPT/HCPCS: 36415; 71275; 74022; 74177; 80048; 80053; 81001; 82274; 83036; 83735; 85025; 85610; 85730; 87070; 87205; 87428; 87449; 92610; 93005; 94640; 97162; 97166; 97530; 97535; 99283; J7030; J7040; Q9967; A4216

== ENCOUNTER → 2022-04-05 | Outpatient (CLI) | payer BC, SELFPAY ==
[2022-04-05 10:36] LABS: Erythrocyte Sedimentation Rate 74 mm/hr (0-20)
[2022-04-05 11:01] LABS: LDH 262 U/L (87-241)
[2022-04-09 11:26] LABS: Anti-Centromere B Ab <0.2 AI (0.0-0.9); Anti-Chromatin <0.2 AI (0.0-0.9); Anti-Jo <0.2 AI (0.0-0.9); Anti-Scleroderma-70 AB <0.2 AI (0.0-0.9); Endomysial Antibody IgA Negative (Negative); RNP Ab <0.2 AI (0.0-0.9); SJOGREN'S Anti-SS-A test < 0.2 AI (0.0-0.9); SJOGREN'S Anti-SS-B test < 0.2 AI (0.0-0.9); Smith Ab <0.2 AI (0.0-0.9)
[2022-04-09 20:09] LABS: Immunoglobulin A 108 mg/dL (90-386); t-Transglutaminase IgA <2 U/mL (0-3)
[2022-04-09 20:10] LABS: Anti-dsDNA Ab <1 IU/mL (0-9)
[2022-04-12 08:09] LABS: Albumin 2.8 g/dL (2.9-4.4); Alpha-1-Globulins 0.4 g/dL (0.0-0.4); Alpha-2-Globulins 0.9 g/dL (0.4-1.0); Cytoplasmic Ab (C-ANCA) <1:20 titer (Neg:<1:20); Gamma Globulin 0.5 g/dL (0.4-1.8); Immunoglobulin A 110 mg/dL (90-386); Immunoglobulin G 506 mg/dL (603-1613); Immunoglobulin M 64 mg/dL (20-172); PROEL- TOTAL PROTEIN 5.6 g/dL (6.0-8.5)
[2022-04-12 12:08] LABS: Immunoglobulin E 17 IU/mL (6-495); Perinuclear Ab (P-ANCA) <1:20 titer (Neg:<1:20)
== END | disposition home or self-care (01) ==
LOC: LAB 09:15
PROVIDERS: PCP Internal Medicine; Referring Provider Internal Medicine Gastroenterology; Visit Provider Internal Medicine Gastroenterology
DX: K22.89 Other specified disease of esophagus (principal); K56.7 Ileus, unspecified
CPT/HCPCS: 36415; 82784; 82785; 83516; 83615; 84165; 85652; 86140; 86225; 86235; 86255; 86256; 86334

== ENCOUNTER → 2022-04-09 | Outpatient (CLI) | payer BC, SELFPAY ==
[2022-04-15 19:50] LABS: Calprotectin, Stool 125 ug/g (0-120); Fats, Neutral Normal (.); Fats, Total Normal (.)
[2022-04-17 08:01] LABS: Giardia Lamblia, Stool EIA Negative (Negative); Pancreatic Elastase, Fecal 445 (>200)
== END | disposition home or self-care (01) ==
LOC: LABSPEC 15:32
PROVIDERS: PCP Internal Medicine; Referring Provider Internal Medicine Gastroenterology; Visit Provider Internal Medicine Gastroenterology
DX: K22.89 Other specified disease of esophagus (principal); K56.7 Ileus, unspecified; K58.9 Irritable bowel syndrome, unspecified
CPT/HCPCS: 82653; 82705; 83630; 83993; 87329

== ENCOUNTER 2022-05-24 05:19 | Day surgery (SDC) | payer BC, SELFPAY ==
[2022-05-24] MEDS: Lactated Ringers 1,000 ML 15 ML IV (05:35)
[2022-05-24 05:47] VITALS: BP 138/90; PULSE 71; RESP 18; TEMP 36.5; O2SAT 98; BMI 21.8
--- NOTE | 2022-05-24 06:30 | COLBX_PTH ---
PATIENT: AUGUSTUS LIND LOC: EN U#:[id number] AGE/SX: 57/M ROOM: RE05/24/[address]: Dr. Carlos Varghese DO : 1965 BED: DIS: 05/24/2022 SPEC #: [id number] RECD: 05/24/22 10:24 STATUS: JENNIFER ALEX #: [id number] ESCOBAR: 05/24/22 06:[address]: Carlos Varghese DEPT: SURGICAL PATHOLOGY RECD BY: Maeve Bryant ENTERED: 05/24/22 11:08 SP TYPE: COLON BX OTHR DR: Dr. Aleida Marcelo DO Tissues: A - Duodenum, NOS B - Gastric mucous membrane C - Esophagus, NOS D - Ileum, NOS E - COLON BIOPSY F - Cecum, NOS Procedures: Special Stain Group II Surgery Specimen Level IV Alcian Blue/PAS (control) HEADER OPERATION: Colonoscopy with biopsies, polypectomy, EGD with biopsies PRE-OP DIAGNOSIS: Dilatation of esophagus, ileus TISSUE SUBMITTED: A ? Duodenum biopsy, B ? Gastric body biopsy, C ? Distal esophagus biopsy, D ? Terminal ileum biopsy, E ? Random colon biopsy, F ? Cecal polyp biopsy MICROSCOPIC DIAGNOSIS A. Duodenum, biopsy: Fragments of duodenal mucosa, no pathologic diagnosis. B. Gastric body, biopsy: Minimal gastritis. See microscopic description and comment. C. 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 Chronic inflammation. Negative for dysplasia. See comment. D. Terminal ileum, biopsy: Fragments of small intestinal mucosa, no pathologic diagnosis. E. Colon, random biopsy: Fragments of colonic mucosa with a few pigment-laden macrophages consistent with melanosis coli. F. Cecal polyp, biopsy: Hyperplastic polyp. SJ:yu 05/25/2022 COMMENT B. The results of immunohistochemistry for Helicobacter pylori will be reported separately ([id number]). C. Alcian blue/PAS stain with matched control is used in the evaluation of the specimen. Immunohistochemistry ([id number]) for P53 and Ki-67 will be performed and results will be reported separately. MICROSCOPIC DESCRIPTION Slides are reviewed. B. The specimen shows fragments of gastric mucosa with chronic inflammatory cell infiltrates in the lamina propria consisting of lymphocytes and plasma cells, consistent with minimal chronic gastritis. GROSS DESCRIPTION A - Received in fixative is one container labeled with the patient's name and designated biopsy duodenum. The specimen consists of multiple irregular fragments of light alejandre soft tissue that in aggregate measure 1.5 x 0.3 x 0.1 cm. The specimen is totally submitted in one cassette. B - Received in fixative is one container labeled with the patient's name and designated gastric body biopsy. The specimen consists of two irregular fragments of light alejandre soft tissue that in aggregate measure 0.8 x 0.5 x 0.1 cm. The specimen is totally submitted in one cassette. C - Received in fixative is one container labeled with the patient's name and designated biopsy distal esophagus. The specimen consists of multiple irregular fragments of light alejandre soft tissue that in aggregate measure 1 x 0.3 x 0.1 cm. The specimen is totally submitted in one cassette. D - Received in fixative is one container labeled with the patient's name and designated terminal ileum. The specimen consists of two irregular fragments of light alejandre soft tissue that in aggregate measure 0.6 x 0.3 x 0.1 cm. The specimen is totally submitted in one cassette. E - Received in fixative is one container labeled with the patient's name and designated biopsy random colon. The specimen consists of multiple irregular fragments of light alejandre soft tissue that in aggregate measure 1.8 x 0.7 x 0.1 cm. The specimen is totally submitted in one cassette. F - Received in fixative is one container labeled with the patient's name and designated biopsy cecal polyp. The specimen consists of one irregular fragment of light alejandre soft tissue that measures 0.5 x 0.4 x 0.1 cm. The specimen is totally submitted in one cassette. / SJ:rg 05/24/2022 TC:5 [facility]: [id number] x6
--- NOTE | 2022-05-24 06:30 | IMM_PTH ---
PATIENT: AUGUSTUS LIND LOC: EN U#:[id number] AGE/SX: 57/M ROOM: RE05/24/[address]: Dr. Carlos Varghese DO : 1965 BED: DIS: 05/24/2022 SPEC #: [id number] RECD: 05/24/22 13:34 STATUS: JENNIFER REQ #: [id number] ESCOBAR: 05/24/22 06:[address]: Carlos Varghese DEPT: IMMUNOHISTOCHEMISTRY RECD BY: Noemi Monreal ENTERED: 05/24/22 13:35 SP TYPE: IMMUNO OTHR DR: Dr. Aleida Marcelo DO Tissues: B - Stomach, NOS C - Esophagus, NOS Procedures: H Pylori (initial) P53 (initial) KI-67 (add) PHYSICIAN & INSTITUTION [place] [id number] SPECIMEN INFORMATION: Tissue Source: B ? Gastric body, C ? Distal esophagus biopsy Clinical Info: Dilatation of esophagus, ileus Specimen Number: [id number] B & C CPT code: 87611 x2, 71684 METHODOLOGY: Deparaffinized sections of prefer/formalin-fixed tissue or PAP/DQ stained slides are incubated with monoclonal/polyclonal antibodies/oligonucleotide probes. Localization is made via biotin free immunoperoxidase method. Appropriate controls are performed and reacted as expected. Results on target cell population are indicated in the following table: RESULTS: ANTIBODY / CLONE RESULT Block B H Pylori (polyclonal) negative Block C P53 (DO-7) negative Ki-67 (30-9) Positive, very low These tests were developed and their performance characteristics determined by [facility]. They may not have been cleared or approved by the U.S. Food and Drug Administration. The FDA has determined that such clearance or approval is not necessary. The above immunohistochemical/dualISH markers are ordered and reviewed by the Pathologist. INTERPRETATION: B. Gastric body, biopsy: Negative for Helicobacter pylori organisms. C. Distal esophagus, biopsy: Negative for dysplasia. SJ:yu 05/28/2022
--- NOTE | 2022-05-24 06:34 | HP.PCM_ITS ---
History and Physical Date of Admission: 05/24/22 ?OSORIO LIND, is a 57 M who presents to the office today for Follow up visit. Osorio established with this clinic through hospitalization at [facility]. He presented to [facility] ED 04.01.22 for evaluation of hypotension, SOB, increased HR and was admitted with hypoxia, MARYLOU and ileus. Gastroenterology consulted 04.03.22 for evaluation of ileus/chronic intestinal pseudoobstruction and dilation of esophagus. Osorio chose to have gastrointestinal workup performed as an outpatient and no endoscopy was performed during hospitalization. He was discharged 04.03.22. PMH HTN; MGUS; Purpura; MARYLOU Reports that he is doing well at this time. He feels bloated and distended. Having 3+ BM a day with use of MiraLAX, does not feel complete evacuation. Denies dysphagia at this time; ST screened without need for intervention. Having issues with GERD and utilizing protonix 40mg. ROS Const Constitutional: No fatigue, malaise, night sweats, weight change, sleep problems, abnormal sleep pattern or change in appetite ENT ENT: No difficulty swallowing, hoarseness or sore throat Cardio Cardiology: No chest pain at rest Gastro GI: No belching, change in stool character, coffee ground emesis, constipation, cramping, diarrhea, heartburn, difficulty swallowing, feeling full early, excessive flatus, incontinent of stools, Vomiting blood/hematemesis, Blood in stool, loose stools, Black,tarry stools, nausea/dyspepsia, pain with swallowing, vomiting or other Musc Musculoskeletal: No joint pain Skin Skin: No yellowing of the eye or itchy eyes Neuro Neurology: No behavioral changes Psych Psychiatric: No abnormal sleep pattern, No anxiety, No behavioral changes, No change in appetite and No depression Endo Endocrine: No fatigue or weight change Aller/Imm Allergy/Immunologic: No itchy eyes Tonio/Lymp Hematologic/Lymphatic: No easy bleeding or easy bruising Exam Const General: cooperative and comfortable Nutritional Appearance: average body habitus and well nourished HENMT Head: normal to inspection Ears: hearing grossly normal bilaterally Nose: external nose normal Face and sinus: normal facial exam Mouth: oral mucosae normal Throat: posterior oropharynx normal Eyes General: appearance normal, both eyes and all related structures Neck Neck: normal visual inspection Chest Chest palpation & inspection: normal inspection of the chest and normal palpation of entire chest wall Resp Effort & Inspection: normal respiratory effort Auscultation: Bilateral: Clear to Auscultation Cardio Palpation: normal PMI Rate: regular rate Rhythm: regular rhythm GI Inspection: normal to inspection Auscultation: normal bowel sounds Percussion: normal to percussion Palpation: no hepatosplenomegaly Skin General: no rashes or lesions noted Neuro General: patient alert Extrem General: normal to inspection Psych Affect: normal affect Quality Reporting Tobacco Screening ([facility] 138) Smoking Status: Never smoker Assessment and Plan Assessment and Plan (1) Dilatation of esophagus: ?Status:?Acute ? ? ? Orders:?Orders: ? CRP Today ? ? ? LDH Today ? ? ? Erythrocyte Sed RateA Today ? ? ? ANCA Today ? ? ? Celiac Disease Profile Today ? ? ? Immunoglobulin E Today ? ? ? MELVI Comprehensive Panel Today ? ? ? Calprotectin, Stool Today ? ? ? Fecal Fat, Qualitative Today ? ? ? Giardia Lamblia, Stool EIA Today ? ? ? JJ + Protein Elect, Serum Today ? ? ? Pancreatic Elastase, Fecal Today ?Plan - Dr. Gonzalez Friend, DO: Dilatation of esophagus: PLAN: ? ? ? The differential diagnosis for the dilation of the esophageal spasm achalasia, inappropriate esophageal dysmotility, esophageal stricture.? Patient at this time does not want to undergo endoscopic evaluation at this time.? Prolonged conversation with him his at the bedside explaining that he is high risk for aspiration pneumonia and should get an endoscopic evaluation for mucosal disease, utility disorder and? acquired abnormality patient says he would like to get the work-up done as an outpatient. (2) Ileus: ?Status:?Acute ? ? ? Orders:?Orders: ? CRP Today ? ? ? LDH Today ? ? ? Erythrocyte Sed Rate Today ? ? ? ANCA Today ? ? ? Celiac Disease Profile Today ? ? ? Immunoglobulin E Today ? ? ? MELVI Comprehensive Panel Today ? ? ? Calprotectin, Stool Today ? ? ? Fecal Fat, Qualitative Today ? ? ? Giardia Lamblia, Stool EIA Today ? ? ? JJ + Protein Elect, Serum Today ? ? ? Pancreatic Elastase, Fecal Today ?Stewart Gonzalez Friend, DO: ? ? His dilation of the small bowel and colon resembles chronic intestinal pseudoobstruction.? He is not seen other than cyclobenzaprine.? Hydrocodone that may contribute to this systemic evaluation of the GI tract.? ? Achalasia in the setting of chronic intestinal pseudoobstruction is not very common.? However there is no underlying commonality of the 2 disorders of his a possible singular disease process affecting the mesenteric proximal stomach and my enteric plexus.? This should undergo evaluation.? He did not seem to be in severe discomfort that that would make me think that he may be risk for perforation but it is a possibility due to worsening distention of his GI tract.? Comprehensive biochemical work-up to make sure there is no infection associated with his dilation of the colon and small bowel causing a pseudoobstruction picture.? We will also look for autoimmune disease affecting the GI tract. I have re-examined the patient. There are no clinical changes since date of exam.
[2022-05-24 07:16] VITALS: BP 127/84; BP 138/90; PULSE 55; RESP 14; TEMP 36; O2SAT 99
--- NOTE | 2022-05-24 07:19 | OP.EGD_ITS ---
Patient Name: Osorio Handley Procedure Date: 05/24/2022 6:17 AM Date of : 1965 Age: 57 Procedure: Upper GI endoscopy Indications: Epigastric abdominal pain, Dysphagia, Esophageal reflux Providers: Carlos Varghese DO Medicines: Monitored Anesthesia Care Patient Profile: This is a 57 year old male. Refer to note in patient chart for documentation of history and physical. Patient has symptoms of chronic global abdominal pain and chronic dysphagia. Complications: No immediate complications. Procedure: Pre-Anesthesia Assessment: - Prior to the procedure, a History and Physical was performed, and patient medications and allergies were reviewed. The patient is competent. The risks and benefits of the procedure and the sedation options and risks were discussed with the patient. All questions were answered and informed consent was obtained. Patient identification and proposed procedure were verified by the physician in the pre-procedure area. Mental Status Examination: alert and oriented. Airway Examination: normal oropharyngeal airway and neck mobility. Respiratory Examination: clear to auscultation. CV Examination: normal. Prophylactic Antibiotics: The patient does not require prophylactic antibiotics. Prior Anticoagulants: The patient has taken no previous anticoagulant or antiplatelet agents. ASA Grade Assessment: II - A patient with mild systemic disease. After reviewing the risks and benefits, the patient was deemed in satisfactory condition to undergo the procedure. The anesthesia plan was to use moderate sedation / analgesia (conscious sedation). Immediately prior to administration of medications, the patient was re-assessed for adequacy to receive sedatives. The heart rate, respiratory rate, oxygen saturations, blood pressure, adequacy of pulmonary ventilation, and response to care were monitored throughout the procedure. The physical status of the patient was re-assessed after the procedure. After obtaining informed consent, the endoscope was passed under direct vision. Throughout the procedure, the patient's blood pressure, pulse, and oxygen saturations were monitored continuously. The pediatric colonoscope was introduced through the mouth, and advanced to the second part of duodenum. The upper GI endoscopy was accomplished without difficulty. The patient tolerated the procedure well. Scope In: 6:41:00 AM Scope Out: 6:49:14 AM Total Procedure Duration Time 0 hours 8 minutes 14 seconds Findings: There were esophageal mucosal changes suspicious for short-segment Sherwood's esophagus present in the distal esophagus. The maximum longitudinal extent of these mucosal changes was 3 cm in length. Mucosa was biopsied with a cold forceps for histology in a targeted manner at intervals of 1 cm in the lower third of the esophagus. Verification of patient identification for the specimen was done. Estimated blood loss was minimal. There did appear to be like a relaxation in the mid to distal esophagus. Patchy mildly erythematous mucosa without bleeding was found in the stomach. Biopsies were taken with a cold forceps for histology. Verification of patient identification for the specimen was done. Estimated blood loss was minimal. The second portion of the duodenum was normal. Biopsies were taken with a cold forceps for histology. Verification of patient identification for the specimen was done. Estimated blood loss was minimal. Impression: - Esophageal mucosal changes suspicious for short-segment Sherwood's esophagus. Biopsied. - Erythematous mucosa in the stomach. Biopsied. - Normal second portion of the duodenum. Biopsied. Recommendation: - Discharge patient to home. - Resume previous diet. - Continue present medications. - Await pathology results. - Manometry of the esophagus to look for esophageal motility disorder. Procedure Code(s): --- Professional --- 63173, Esophagogastroduodenoscopy, flexible, transoral; with biopsy, single or multiple CPT copyright 2017 [employer]. All rights reserved. The codes documented in this report are preliminary and upon technical adjuster review may be revised to meet current compliance requirements. Carlos Varghese DO 05/24/2022 7:18:30 AM This report has been signed electronically. Number of Addenda: 1 Note Initiated On: 05/24/2022 6:17 AM Addendum Number: 1 Addendum Date: 08/01/2022 6:04:04 AM MAC was used as sedation for this procedure. Carlos Varghese DO 08/01/2022 6:04:08 AM This report has been signed electronically.
--- NOTE | 2022-05-24 07:19 | OP.CCLET_ITS ---
08/01/2022 Aleida Marcelo [address] [place] [address] Re : Upper GI endoscopy procedure for Osorio Handley Dear Dr. Marcelo This procedure was performed on April. My impressions and recommendations are as follows: Impressions : - Esophageal mucosal changes suspicious for short-segment Sherwood's esophagus. Biopsied. - Erythematous mucosa in the stomach. Biopsied. - Normal second portion of the duodenum. Biopsied. Recommendations : - Discharge patient to home. - Resume previous diet. - Continue present medications. - Await pathology results. - Manometry of the esophagus to look for esophageal motility disorder. My findings are described in the full procedure note, which is enclosed. If I can be of further assistance, please feel free to contact me at . Sincerely, Carlos Varghese, 05/24/2022 7:18:30 AM This report has been signed electronically.
[2022-05-24 07:20] VITALS: BP 121/82; BP 138/90; PULSE 56; RESP 16; O2SAT 98
[2022-05-24 07:25] VITALS: BP 120/80; BP 138/90; PULSE 55; RESP 16; O2SAT 98
--- NOTE | 2022-05-24 07:26 | OP.COLON_ITS ---
Patient Name: Osorio Handley Procedure Date: 05/24/2022 6:49 AM Date of : 1965 Age: 57 Procedure: Colonoscopy Indications: Iron deficiency anemia, Abnormal CT of the GI tract, Incidental abdominal pain noted, Incidental abdominal distress noted, Incidental change in bowel habits noted, Incidental constipation noted Providers: Carlos Varghese DO Medicines: Monitored Anesthesia Care Patient Profile: This is a 57 year old male. Refer to note in patient chart for documentation of history and physical. Patient has symptoms of chronic global abdominal pain and chronic dysphagia. Last Colonoscopy: 5 years ago. Complications: No immediate complications. Procedure: Pre-Anesthesia Assessment: - Prior to the procedure, a History and Physical was performed, and patient medications and allergies were reviewed. The patient is competent. The risks and benefits of the procedure and the sedation options and risks were discussed with the patient. All questions were answered and informed consent was obtained. Patient identification and proposed procedure were verified by the physician in the pre-procedure area. Mental Status Examination: alert and oriented. Airway Examination: normal oropharyngeal airway and neck mobility. Respiratory Examination: clear to auscultation. CV Examination: normal. Prophylactic Antibiotics: The patient does not require prophylactic antibiotics. Prior Anticoagulants: The patient has taken no previous anticoagulant or antiplatelet agents. ASA Grade Assessment: II - A patient with mild systemic disease. After reviewing the risks and benefits, the patient was deemed in satisfactory condition to undergo the procedure. The anesthesia plan was to use moderate sedation / analgesia (conscious sedation). Immediately prior to administration of medications, the patient was re-assessed for adequacy to receive sedatives. The heart rate, respiratory rate, oxygen saturations, blood pressure, adequacy of pulmonary ventilation, and response to care were monitored throughout the procedure. The physical status of the patient was re-assessed after the procedure. After I obtained informed consent, the scope was passed under direct vision. Throughout the procedure, the patient's blood pressure, pulse, and oxygen saturations were monitored continuously. The pediatric colonoscope was introduced through the anus and advanced to the terminal ileum. The colonoscopy was performed without difficulty. The patient tolerated the procedure well. The quality of the bowel preparation was good. Scope In: 6:52:09 AM Scope Withdrawal Time 0 hours 13 minutes 26 seconds Scope Out: 7:11:31 AM Total Procedure Duration Time 0 hours 19 minutes 22 seconds Findings: The perianal and digital rectal examinations were normal. An area of mildly congested mucosa was found in the sigmoid colon, in the transverse colon and in the cecum. Biopsies were taken with a cold forceps for histology. Verification of patient identification for the specimen was done. Estimated blood loss was minimal. A few small-mouthed diverticula were found in the recto-sigmoid colon and sigmoid colon. A 5 mm polyp was found in the cecum. The polyp was sessile. The polyp was removed with a cold snare. Resection and retrieval were complete. Verification of patient identification for the specimen was done. Estimated blood loss was minimal. A patchy area of the terminal ileum was congested. Biopsies were taken with a cold forceps for histology. Verification of patient identification for the specimen was done. Estimated blood loss was minimal. Impression: - Congested mucosa in the sigmoid colon, in the transverse colon and in the cecum. Biopsied. - Diverticulosis in the recto-sigmoid colon and in the sigmoid colon. - One 5 mm polyp in the cecum, removed with a cold snare. Resected and retrieved. - Congested mucosa in the terminal ileum. Biopsied. Recommendation: - Discharge patient to home. - Resume previous diet. - Continue present medications. - Await pathology results. - Repeat colonoscopy in 5 years for surveillance based on pathology results. Procedure Code(s): --- Professional --- 12639, Colonoscopy, flexible; with removal of tumor(s), polyp(s), or other lesion(s) by snare technique 04777, 57, Colonoscopy, flexible; with biopsy, single or multiple CPT copyright 2017 [employer]. All rights reserved. The codes documented in this report are preliminary and upon seed cleaning machine operator review may be revised to meet current compliance requirements. Carlos Varghese DO 05/24/2022 7:25:45 AM This report has been signed electronically. Number of Addenda: 1 Note Initiated On: 05/24/2022 6:49 AM Addendum Number: 1 Addendum Date: 08/01/2022 6:04:15 AM MAC was used as sedation for this procedure. Carlos Varghese DO 08/01/2022 6:04:20 AM This report has been signed electronically.
--- NOTE | 2022-05-24 07:27 | OP.CCLET_ITS ---
08/01/2022 Aleida Marcelo [address] [place] [address] Re : Colonoscopy procedure for Osorio Handley Dear Dr. Marcelo This procedure was performed on April. My impressions and recommendations are as follows: Impressions : - Congested mucosa in the sigmoid colon, in the transverse colon and in the cecum. Biopsied. - Diverticulosis in the recto-sigmoid colon and in the sigmoid colon. - One 5 mm polyp in the cecum, removed with a cold snare. Resected and retrieved. - Congested mucosa in the terminal ileum. Biopsied. Recommendations : - Discharge patient to home. - Resume previous diet. - Continue present medications. - Await pathology results. - Repeat colonoscopy in 5 years for surveillance based on pathology results. My findings are described in the full procedure note, which is enclosed. If I can be of further assistance, please feel free to contact me at . Sincerely, Carlos Varghese DO 05/24/2022 7:25:45 AM This report has been signed electronically.
[2022-05-24 07:30] VITALS: BP 114/82; BP 138/90; PULSE 52; RESP 16; TEMP 36.7; O2SAT 98
[2022-05-24 07:32] VITALS: BP 138/90
== END 2022-05-24 08:02 | disposition home or self-care (01) ==
LOC: EN 05:19 → AC 05:23
PROVIDERS: PCP Internal Medicine; Referring Provider Internal Medicine; Visit Provider Internal Medicine Gastroenterology
PROC: 0DJD8ZZ Inspection of Lower Intestinal Tract, Via Natural or Artificial Opening Endoscopic (ICD-10-PCS; CPT 45378; principal; 2022-05-24 06:25)
DX: K22.70 Barrett's esophagus without dysplasia (principal); K29.70 Gastritis, unspecified, without bleeding; K21.9 Gastro-esophageal reflux disease without esophagitis; K59.00 Constipation, unspecified; K57.30 Diverticulosis of large intestine without perforation or abscess without bleeding; K63.5 Polyp of colon; R93.3 Abnormal findings on diagnostic imaging of other parts of digestive tract; D50.9 Iron deficiency anemia, unspecified; I10 Essential (primary) hypertension; R19.5 Other fecal abnormalities; R13.10 Dysphagia, unspecified; Z79.899 Other long term (current) drug therapy
CPT/HCPCS: 45385; 45380; 43239; 88305; 88313; 88341; 88342; J7120; J2405

== ENCOUNTER → 2022-08-08 | Outpatient (CLI) | payer OTHER, SELFPAY ==
--- NOTE | 2022-08-08 10:19 | NM_ITS ---
CLINICAL: 57-year-old male with history of clinical gastroparesis. SEMI-SOLID PHASE 99m Tc SULFUR COLLOID GASTRIC EMPTYING STUDY COMPARISON: None available FINDINGS: The patient was administered 1.1 mCi of 99m Tc sulfur colloid mixed with oatmeal and consumed per os. Image acquisitions in the anterior-posterior projections were obtained for 60 minutes. There is prompt visualization of the stomach. There is no gastroesophageal reflux identified. The T ? emptying was calculated to be 23.61 minutes, (Normal: 12-56 minutes). NM/Gastric Emptying Study IMPRESSION: 1. NORMAL 99m Tc sulfur colloid semi-solid phase (oatmeal) gastric emptying imaging examination. A. There is normal and preserved semi-solid phase gastric emptying compared to normal controls. (Nima et al, J Nucl Med Tech 38: 186, 2010). Electronically Signed: Sim Farah, at 21:54 EDT ,
== END | disposition home or self-care (01) ==
PROVIDERS: PCP Internal Medicine; Visit Provider Nurse Practitioner Adult Health
DX: R14.0 Abdominal distension (gaseous) (principal); K59.00 Constipation, unspecified; D47.2 Monoclonal gammopathy
CPT/HCPCS: 78264; A9541

== ENCOUNTER → 2022-12-10 | Outpatient (CLI) | payer OTHER, SELFPAY ==
[2022-12-10 10:20] LABS: Erythrocyte Sedimentation Rate 3 mm/hr (0-20)
[2022-12-10 10:23] LABS: Absolute Lymphocyte Count 0.85 X10^3/uL (0.83-4.51); Absolute Neutrophil Count 5.3 X10^3/uL (2.0-7.7); Basophil# 0.03 X10^3/uL; Basophil% 0.4 % (0-1); Eosinophil# 0.01 X10^3/uL; Eosinophils% 0.1 % (0-5); Hematocrit 44.5 % (40-54); Hemoglobin 14.5 g/dL (13.0-16.5); Lymphocyte # 0.85 X10^3/ul (0.83-4.51); Lymphocyte % 12.3 % (19-41); Mean Corp Hgb Conc 32.6 g/dL (32-36); Mean Corpuscular Hgb 31.3 pg (27.0-32.0); Mean Corpuscular Volume 96.1 fL (80-94); Monocyte# 0.64 X10^3/uL; Monocyte% 9.3 % (0-10); NRBC Flagged by Analyzer 0 % (0-5); Platelet Count 262 K/mm3 (150-450); Red Blood Count 4.63 M/mm3 (4.6-6.2); White Blood Count 6.9 K/mm3 (4.4-11.0)
[2022-12-10 10:57] LABS: ALB/GLOB Ratio 0.9 RATIO (0.9-2.4); AST(SGOT) 21 U/L (15-37); Alanine Aminotransfer ALT/SGPT 49 U/L (16-61); Albumin, Serum 3.3 g/dL (3.2-5.0); Alkaline Phosphatase 92 U/L (45-117); Anion Gap 6 (5-15); BUN 20 mg/dL (7-18); BUN/Creat Ratio 19.4 RATIO (10-20); Calcium,Total 9.2 mg/dL (8.5-10.1); Chloride 103 mmol/L (98-107); Creatinine, Serum 1.03 mg/dL (0.70-1.30); EST Glomerular Filtration Rate 78 mL/min (>60); Est Glom Filt Rate - Afr Amer 95 mL/min (>60); Globulin 3.5 g/dL (2.2-4.2); Glucose 103 mg/dL (74-106); LDH 231 U/L (87-241); Potassium 3.4 mmol/L (3.5-5.1); Protein, Total 6.8 g/dL (6.4-8.2); Sodium Level 143 mmol/L (136-145)
[2022-12-11 17:08] LABS: Albumin 3.6 g/dL (2.9-4.4); Alpha-1-Globulins 0.2 g/dL (0.0-0.4); Alpha-2-Globulins 0.7 g/dL (0.4-1.0); Free Lambda Light Chains 21.5 mg/L (5.7-26.3); Gamma Globulin 0.8 g/dL (0.4-1.8); Immunoglobulin A 141 mg/dL (90-386); Immunoglobulin G 758 mg/dL (603-1613); Immunoglobulin M 93 mg/dL (20-172); PROEL- TOTAL PROTEIN 6.2 g/dL (6.0-8.5)
== END | disposition home or self-care (01) ==
LOC: LAB 08:23
PROVIDERS: PCP Internal Medicine; Referring Provider Internal Medicine Medical Oncology; Visit Provider Internal Medicine Medical Oncology
DX: D47.2 Monoclonal gammopathy (principal); D69.2 Other nonthrombocytopenic purpura
CPT/HCPCS: 36415; 80053; 82784; 83615; 83883; 84165; 85025; 85652; 86334

== ENCOUNTER → 2023-06-13 | Outpatient (CLI) | payer OTHER, SELFPAY ==
[2023-06-13 09:44] LABS: Absolute Lymphocyte Count 1.25 X10^3/uL (0.83-4.51); Absolute Neutrophil Count 6.8 X10^3/uL (2.0-7.7); Basophil# 0.04 X10^3/uL; Basophil% 0.4 % (0-1); Eosinophil# 0.04 X10^3/uL; Eosinophils% 0.4 % (0-5); Hematocrit 45.1 % (40-54); Hemoglobin 14.4 g/dL (13.0-16.5); Lymphocyte # 1.25 X10^3/ul (0.83-4.51); Lymphocyte % 13.8 % (19-41); Mean Corp Hgb Conc 31.9 g/dL (32-36); Mean Corpuscular Hgb 31.3 pg (27.0-32.0); Mean Platelet Vol. 9.3 fl (6.2-12.0); Monocyte# 0.88 X10^3/uL; Monocyte% 9.7 % (0-10); NRBC Flagged by Analyzer 0 % (0-5); Neutrophil # 6.79 X10^3/uL (2.7-7.7); Neutrophil % 74.7 % (47-70); Platelet Count 252 K/mm3 (150-450); RBC Distribution Width SD 54.4 fl (35.1-43.9); White Blood Count 9.1 K/mm3 (4.4-11.0)
[2023-06-13 10:16] LABS: ALB/GLOB Ratio 0.9 RATIO (0.9-2.4); AST(SGOT) 23 U/L (15-37); Alanine Aminotransfer ALT/SGPT 58 U/L (16-61); Albumin, Serum 3.2 g/dL (3.2-5.0); Alkaline Phosphatase 98 U/L (45-117); Anion Gap 6 (5-15); BUN 22 mg/dL (7-18); BUN/Creat Ratio 18.6 RATIO (10-20); Calcium,Total 8.9 mg/dL (8.5-10.1); Chloride 106 mmol/L (98-107); Creatinine, Serum 1.18 mg/dL (0.70-1.30); EST Glomerular Filtration Rate 67 mL/min (>60); Est Glom Filt Rate - Afr Amer 81 mL/min (>60); Globulin 3.5 g/dL (2.2-4.2); Glucose 69 mg/dL (74-106); LDH 215 U/L (87-241); Potassium 3.1 mmol/L (3.5-5.1); Protein, Total 6.7 g/dL (6.4-8.2); Sodium Level 143 mmol/L (136-145)
[2023-06-14 13:09] LABS: ANTINUCLEAR ANTIBODIES DIRECT Negative (Negative)
[2023-06-14 17:07] LABS: Albumin 3.4 g/dL (2.9-4.4); Alpha-1-Globulins 0.2 g/dL (0.0-0.4); Alpha-2-Globulins 0.7 g/dL (0.4-1.0); Free Kappa Light Chains 18.3 mg/L (3.3-19.4); Free Lambda Light Chains 21.8 mg/L (5.7-26.3); Gamma Globulin 0.7 g/dL (0.4-1.8); Immunoglobulin A 136 mg/dL (90-386); Immunoglobulin G 789 mg/dL (603-1613); Immunoglobulin M 85 mg/dL (20-172)
== END | disposition home or self-care (01) ==
PROVIDERS: PCP Internal Medicine; Referring Provider Internal Medicine Medical Oncology; Visit Provider Internal Medicine Medical Oncology
DX: D47.2 Monoclonal gammopathy (principal); D69.2 Other nonthrombocytopenic purpura
CPT/HCPCS: 36415; 80053; 82784; 83615; 83883; 84165; 85025; 86038; 86334

== ENCOUNTER → 2024-06-08 | Outpatient (CLI) | payer OTHER, SELFPAY ==
[2024-06-08 07:37] LABS: Bacteria 0 SEEN /hpf (None Seen); Mucous, Urine 0 SEEN /hpf (<or=2+); Red Blood Cells-Urine 0 SEEN /hpf (0-5); Squamous Epithelial Cells - UA 0 SEEN /hpf (0-5); White Blood Cells 0 SEEN /hpf (0-5)
[2024-06-08 08:06] LABS: Absolute Lymphocyte Count 0.87 X10^3/uL (0.83-4.51); Basophil# 0.03 X10^3/uL; Basophil% 0.5 % (0-1); Eosinophil# 0.02 X10^3/uL; Eosinophils% 0.3 % (0-5); Hemoglobin 14.1 g/dL (13.0-16.5); Lymphocyte # 0.87 X10^3/ul (0.83-4.51); Lymphocyte % 13.5 % (19-41); Mean Corpuscular Hgb 31.7 pg (27.0-32.0); Mean Corpuscular Volume 98.9 fL (80-94); Mean Platelet Vol. 9.5 fl (6.2-12.0); Monocyte# 0.48 X10^3/uL; Monocyte% 7.4 % (0-10); NRBC Flagged by Analyzer 0 % (0-5); Neutrophil # 4.99 X10^3/uL (2.7-7.7); Neutrophil % 77.4 % (47-70); Platelet Count 229 K/mm3 (150-450); RBC Distribution Width CV 14.8 % (11.6-14.6); RBC Distribution Width SD 53.8 fl (35.1-43.9); Red Blood Count 4.45 M/mm3 (4.6-6.2); White Blood Count 6.5 K/mm3 (4.4-11.0)
[2024-06-08 08:24] LABS: Color, Urine Yellow (Yellow); Glucose, Dipstick Normal (Normal); Ketone-Dipstick Negative (Negative); Leukocyte Esterase-Dipstick Negative /ul (Negative); Nitrite-Dipstick Negative (Negative); Occult Blood-Urine Negative /ul (Negative); Protein-Dipstick Negative (Negative); Urine Bilirubin Dipstick Negative (Negative); Urine Clarity Clear (Clear); Urine Urobilinogen Normal (Normal)
[2024-06-08 09:17] LABS: Hepatitis C Antibody Non-Reactive (Nonreactive)
[2024-06-08 09:39] LABS: Hemoglobin A1c 5.7 % (3.8-5.6)
[2024-06-08 10:49] LABS: AST(SGOT) 24 U/L (15-37); Alanine Aminotransfer ALT/SGPT 38 U/L (16-61); Albumin, Serum 3.3 g/dL (3.2-5.0); Alkaline Phosphatase 89 U/L (45-117); Anion Gap 5 (5-15); BUN 19 mg/dL (7-18); BUN/Creat Ratio 22.1 RATIO (10-20); Calcium,Total 8.8 mg/dL (8.5-10.1); Chloride 106 mmol/L (98-107); Cholesterol 183 mg/dL (200); Creatinine, Serum 0.86 mg/dL (0.70-1.30); EST Glomerular Filtration Rate 96 mL/min (>60); Est Glom Filt Rate - Afr Amer 116 mL/min (>60); Globulin 3.2 g/dL (2.2-4.2); Glucose 103 mg/dL (74-106); High Density Lipoprotein 75 mg/dL; LDH 202 U/L (87-241); Potassium 3.9 mmol/L (3.5-5.1); Protein, Total 6.5 g/dL (6.4-8.2); Sodium Level 140 mmol/L (136-145); Thyroid Stim Hormone (TSH) 0.62 uIU/mL (0.358-3.74); Triglycerides 53 mg/dL; Very Low Density Lipoprotein 11 mg/dL (5-40)
[2024-06-08 12:12] LABS: Microalbumin,Random Urine 13.5 mg/L (NO RANGE EST.); Microalbumin:Creatinine Ratio 10.7 mg/g CRE (<30 mg/g CRE)
[2024-06-09 15:08] LABS: Albumin 3.3 g/dL (2.9-4.4); Alpha-1-Globulins 0.2 g/dL (0.0-0.4); Alpha-2-Globulins 0.7 g/dL (0.4-1.0); Free Kappa Light Chains 15.1 mg/L (3.3-19.4); Free Lambda Light Chains 23.5 mg/L (5.7-26.3); Gamma Globulin 0.9 g/dL (0.4-1.8); Immunoglobulin A 115 mg/dL (61-437); Immunoglobulin G 832 mg/dL (603-1613); Immunoglobulin M 77 mg/dL (20-172)
== END | disposition home or self-care (01) ==
LOC: LAB 07:28
PROVIDERS: PCP Internal Medicine; Referring Provider Internal Medicine Medical Oncology; Visit Provider Internal Medicine Medical Oncology
DX: Z11.59 Encounter for screening for other viral diseases (principal); E11.9 Type 2 diabetes mellitus without complications
CPT/HCPCS: 36415; 80053; 80061; 81001; 82043; 82570; 82784; 83036; 83615; 83883; 84165; 84443; 85025; 86334; 86803

== ENCOUNTER → 2024-07-24 | Outpatient (CLI) | payer OTHER, SELFPAY ==
--- NOTE | 2024-07-24 07:05 | MRI_ITS ---
STUDY: MRI CERVICAL SPINE WITHOUT CONTRAST REASON FOR EXAM: Male, 59 years old. MYELOPATHY TECHNIQUE: Standardized fat and water weighted pulse sequences were obtained in the sagittal and axial planes. COMPARISON: None FINDINGS: Normal foramen magnum and brainstem-cervical cord junction. Normal craniovertebral junction. Normal anterior atlantoaxial articulation. Normal odontoid process. There is straightening of the normal cervical lordosis. There is grade 1 retrolisthesis at C5-6. Normal vertebral bodies and posterior osseous elements. There is no acute fracture. C2-3: Shallow left paracentral disc protrusion. Normal central canal and intervertebral neural foramina. C3-4: Spurring with right paracentral disc protrusion. Normal central canal and intervertebral neural foramina. C4-5: Mild spurring to the left. Normal central canal and intervertebral neural foramina. C5-6: Disc space narrowing with endplate change. Spurring with central right paracentral disc protrusion. Moderate canal stenosis. Mild foraminal narrowing. C6-7: Spurring with left paracentral disc protrusion. Moderate canal stenosis. Left foraminal narrowing C7-T1: Normal endplates. Normal disc height, signal and morphology. Normal central canal and intervertebral neural foramina. Normal cervical cord. Normal visualized soft tissue structures. MRI/Spine Cervical (Routine) IMPRESSION: Degenerative change with disc herniations, canal stenosis, and foraminal narrowing. Electronically Signed: Fegn Martin MD at 9:35 EDT ,
--- NOTE | 2024-07-24 07:06 | MRI_ITS ---
STUDY: MRI LUMBAR SPINE WITHOUT CONTRAST REASON FOR EXAM: Male, 59 years old. STENOSIS TECHNIQUE: Standardized fat and water weighted pulse sequences were obtained in the sagittal and axial planes. COMPARISON: October 25, 2021 FINDINGS: The generalized signal intensity of the osseous structures is intact. There is no acute fracture. There is susceptibility artifact associated with bilateral pedicle screws fusing posteriorly from L3 through L5. T12-L1: Normal endplates. Normal disc height, hydration and morphology. Normal bilateral facet joints. Normal central canal and bilateral lateral recesses. Normal bilateral intervertebral neural foramina. Normal lumbar lordosis. There is grade 1 retrolisthesis at L3-4 and L5-S1. There is grade 1 anterolisthesis at L4-5. There is no substantial scoliosis. Normal conus medullaris that terminates at the L1 level. L1-2: Normal endplates. Normal disc height, hydration and morphology. Normal bilateral facet joints. Normal central canal and bilateral lateral recesses. Normal bilateral intervertebral neural foramina. L2-3: Normal endplates. Normal disc height, hydration and morphology. Normal bilateral facet joints. Normal central canal and bilateral lateral recesses. Normal bilateral intervertebral neural foramina. L3-4: Posterior fusion. Right laminotomy. No canal stenosis. Neural foramina are patent. L4-5: Posterior fusion with laminectomy. Disc space narrowing. Mild spurring. No canal stenosis. Neural foramina are patent. L5-S1: Disc space narrowing. Disc bulge and spurring. No canal stenosis. Bilateral foraminal narrowing. Normal visualized sacral ala. There is degenerative change in the posterior paraspinal soft tissues. MRI/Spine Lumbar (Routine) IMPRESSION: Degenerative and postoperative change. Electronically Signed: Feng Martin MD at 9:43 EDT ,
--- NOTE | 2024-07-24 07:06 | MRI_ITS ---
STUDY: MRI THORACIC SPINE WITHOUT CONTRAST REASON FOR EXAM: Male, 59 years old. MYELOPATHY TECHNIQUE: Standardized fat and water weighted pulse sequences were obtained in the sagittal and axial planes. COMPARISON: None. FINDINGS: Normal kyphosis of the thoracic spine. There is no substantial scoliosis. T1-2, T2-3, T3-4, T4-5, T5-6, T7-8, T9-10, T10-11, T11-12: Normal endplates. Normal disc hydration, heights and morphology of the corresponding intervertebral discs. Normal central canal and intervertebral neural foramina at the corresponding levels. T6-7, left paracentral disc protrusion, series 8 image 26. No canal stenosis. Neural foramina are patent. T8-9, right paracentral disc protrusion, series 8 image 19. No canal stenosis. Neural foramina are patent. There is mild increased T2 signal of the left side of the cord at the T6-7 level series 8 image 26. Normal conus medullaris that terminates at the L1 level.. The soft tissue structures are unremarkable. MRI/Spine Thoracic (Routine) IMPRESSION: Mild degenerative change. Focal signal alteration suggesting myelomalacia of the left side of the cord at T6-7. Electronically Signed: Feng Martin MD at 9:39 EDT ,
== END | disposition home or self-care (01) ==
PROVIDERS: PCP Internal Medicine; Referring Provider Physician Assistant; Visit Provider Physician Assistant
DX: G95.9 Disease of spinal cord, unspecified (principal)
CPT/HCPCS: 72141; 72146; 72148